=== PATIENT | female | born 1970 | race Caucasian/White ===

== ENCOUNTER 2019-12-14 11:00 | Outpatient (CLI) | payer OTHER, SELFPAY ==
--- NOTE | ~2019-12-14 | XR_ITS ---
EXAMINATION: XR mandible min 4V INDICATION: Left lower tooth infection and large abscess TECHNIQUE: Four views of the mandible are obtained on five radiographs COMPARISON: None available FINDINGS: There appear to be five or six remaining teeth of the mandible. All of the maxillary teeth are absent. There appears to be a dental caries involving the most posterior of the maxillary teeth o n the left. Fillings are seen within this tooth however finding detail is obscured. The facial soft t issues are grossly normal. No fracture is identified. The paranasal sinuses are clear. IMPRESSION: 1. Apparent dental caries involving a left mandibular tooth. Sensitivity of mandible radiographs is l ow. Would recommend Panorex or facial CT if indicated. Reviewed, dictated and finalized at location B. IMPRESSION: 1. Apparent dental caries involving a left mandibular tooth. Sensitivity of man dible radiographs is low. Would recommend Panorex or facial CT if indicated.
== END 2019-12-14 11:01 | disposition home or self-care (01) ==
PROVIDERS: PCP Family Medicine; Visit Provider Nurse Practitioner Family
DX: K04.7 Periapical abscess without sinus (principal)
CPT/HCPCS: 70110

== ENCOUNTER 2020-06-20 13:39 | Outpatient (CLI) | payer OTHER, SELFPAY ==
--- NOTE | ~2020-06-20 | XR_ITS ---
XR chest 2V DATE: 06/20/2020 14:02 INDICATION: Dyspnea TECHNIQUE: PA and lateral views COMPARISON: 01/23/2016 2 view chest FINDINGS: Normal heart size. No hilar or mediastinal enlargement. No pulmonary infiltrate or consolid ation, pleural effusion or pulmonary vascular congestion or pneumothorax. Included skeletal structures are unremarkable. IMPRESSION: No active cardiopulmonary disease Reviewed, dictated and finalized at location A. 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
== END 2020-06-20 13:40 | disposition home or self-care (01) ==
LOC: ANHIMG 13:50
PROVIDERS: PCP Family Medicine; Visit Provider Nurse Practitioner Family
DX: R06.00 Dyspnea, unspecified (principal)
CPT/HCPCS: 71046

== ENCOUNTER 2020-09-29 14:05 | Outpatient (CLI) | payer OTHER, SELFPAY ==
--- NOTE | ~2020-09-29 | XR_ITS ---
XR chest 2V DATE: 09/29/2020 14:25 INDICATION: Cough. Smoker. COPD. TECHNIQUE: PA and lateral views COMPARISON: None FINDINGS: Normal heart size. No hilar or mediastinal enlargement. No pulmonary infiltrate or consolid ation, pleural effusion or pulmonary vascular congestion or pneumothorax. IMPRESSION: No active cardiopulmonary disease Reviewed, dictated and finalized at location A.
== END 2020-09-29 14:06 | disposition home or self-care (01) ==
PROVIDERS: PCP Family Medicine; Visit Provider Nurse Practitioner Family
DX: R05 Cough (principal)
CPT/HCPCS: 71046

== ENCOUNTER → 2021-04-29 07:51 | Outpatient (CLI) | payer OTHER, SELFPAY ==
[2021-04-29 18:28] LABS: SARS-CoV-2 RNA PCR Negative
== END ==
PROVIDERS: PCP Family Medicine; Visit Provider Physician Assistant Medical
DX: R09.89 Other specified symptoms and signs involving the circulatory and respiratory systems (principal); Z20.822 Contact with and (suspected) exposure to COVID-19
CPT/HCPCS: C9803; U0003; U0005

== ENCOUNTER 2021-05-04 13:32 | Outpatient (CLI) | payer OTHER, SELFPAY ==
--- NOTE | ~2021-05-04 | XR_ITS ---
XR chest 2V DATE: 05/04/2021 14:03 INDICATION: Cough. Loss of voice. TECHNIQUE: PA and lateral views COMPARISON: 09/29/2020 2 view chest FINDINGS: Normal heart size. No hilar or mediastinal enlargement. No pulmonary infiltrate or consolid ation, pleural effusion or pulmonary vascular congestion or pneumothorax. IMPRESSION: No active cardiopulmonary disease Reviewed, dictated and finalized at location B. 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
== END 2021-05-04 13:33 | disposition home or self-care (01) ==
LOC: ANHIMG 13:36
PROVIDERS: PCP Family Medicine; Visit Provider Nurse Practitioner Family
DX: R05.9 Cough, unspecified (principal)
CPT/HCPCS: 71046

== ENCOUNTER 2021-05-25 15:00 | Outpatient (CLI) | payer OTHER, SELFPAY ==
--- NOTE | ~2021-05-25 | XR_ITS ---
EXAMINATION: XR chest 2V DATE: 05/25/2021 15:16 INDICATION: Cough. Acute upper respiratory infection, unspecified. TECHNIQUE: Frontal and lateral views of the chest were obtained. COMPARISON: Chest 2 views 05/04/2021 FINDINGS: The chest demonstrates clear lungs without pneumonia, pleural effusion, or pneumothorax. Th e heart size is normal. IMPRESSION: 1. No acute cardiopulmonary disease. Reviewed, dictated and finalized at location B. 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
== END 2021-05-25 15:01 | disposition home or self-care (01) ==
PROVIDERS: PCP Family Medicine; Visit Provider Physician Assistant Medical
DX: R05.9 Cough, unspecified (principal)
CPT/HCPCS: 71046

== ENCOUNTER 2021-08-06 08:44 | Outpatient (CLI) | payer OTHER, SELFPAY ==
--- NOTE | ~2021-08-06 | XR_ITS ---
EXAMINATION: XR chest 2V 08/06/2021 08:58 INDICATION: Chronic cough and sinus congestion PROCEDURE: 2 view chest COMPARISON: 06/20/2020 FINDINGS: The lungs are clear. The cardiomediastinal silhouette is within normal limits. There are no pleural effusions. There is no pneumothorax suspected. IMPRESSION: 1: NO ACUTE CARDIOPULMONARY DISEASE. Reviewed, dictated and finalized at location A.
== END 2021-08-06 08:45 | disposition home or self-care (01) ==
LOC: ANHIMG 08:47
PROVIDERS: PCP Family Medicine; Visit Provider Nurse Practitioner Family
DX: R05.9 Cough, unspecified (principal)
CPT/HCPCS: 71046

== ENCOUNTER 2022-02-12 00:53 | Day surgery (SDC) | payer OTHER, SELFPAY ==
[2022-02-08 09:08] VITALS: BMI 39.1
[2022-02-12 12:52] LABS: Glucose Point of Care 133 mg/dl (65-105)
[2022-02-12 12:55] VITALS: BP 150/85; PULSE 93; RESP 20; TEMP 36.4; O2SAT 97
--- NOTE | 2022-02-12 13:02 | WPDANESEPPF ---
Anes - Initial Pre Proc Eval Procedure: Operation Date: 02/12/22 14:15 Proposed Procedures p Colonoscopy - Kevin Manzano MD Date/Time: 02/12/22 13:02 Surgeon: Kevin Manzano MD Pre Op Diagnosis: diarrhea Patient Data Age: 51 Gender: F Height: 1.7 m Weight: 113.25 kg Allergies Allergy/AdvReac Type Severity Reaction Status Date / Time Penicillins Allergy Severe Swelling Verified 02/08/22 09:10 of Lip/Tongue/Throat tetracycline Allergy Intermediate Rash Verified 02/08/22 09:10 Home Medications Medication Instructions Recorded Confirmed Type albuterol sulfate 90 mcg/actuation 2 inhalation inhalation Q4H PRN 02/15/20 02/08/22 Rx aerosol inhaler shortness of breath or wheezing #6.7 grams benazepril 10 mg tablet 10 mg PO DAILY #90 tabs 07/19/21 02/08/22 Rx albuterol sulfate 1.25 mg/3 mL 1.25 mg (3 mL) inhalation Q4-6H 07/21/21 02/08/22 Rx solution for nebulization PRN bronchospasm #75 mL nebulizers (Altera Nebulizer #1 ea 07/21/21 02/02/22 Rx System) rosuvastatin 20 mg tablet (Crestor) 20 mg PO DAILY #30 tabs 08/23/21 02/08/22 Rx budesonide-formoterol HFA 160 See Rx Instructions .Route 11/29/21 02/08/22 Rx mcg-4.5 mcg/actuation aerosol .COMPLEX #10.2 grams inhaler (Symbicort) duloxetine 30 mg capsule,delayed 30 mg PO DAILY #90 caps 12/18/21 02/08/22 Rx release alprazolam 0.5 mg tablet (Xanax) 0.5 mg PO DAILY PRN anxiety #60 01/06/22 02/08/22 Rx tabs metformin 1,000 mg tablet 1,000 mg PO BID #60 tabs 01/16/22 02/08/22 Rx buspirone 10 mg tablet 10 mg PO BID #60 tabs 01/31/22 02/08/22 Rx loperamide 2 mg capsule 2 mg PO QID PRN Diarrhea 02/02/22 02/08/22 History eluxadoline 100 mg tablet (Viberzi) 100 mg PO BID #60 tabs 02/04/22 02/08/22 Rx Cranberry Plus Vitamin C 3 tab-cap PO 2XW 02/08/22 02/08/22 History loratadine 10 mg tablet (Claritin) 10 mg PO DAILY 02/08/22 02/08/22 History Laboratory Tests 02/12/22 12:49 POC Capillary Glucose 133 mg/dl H mg/dl (65-105) Patient hx anesthesia problems: none Family hx anesthesia problems: none Results Review: All pre-operative results and documents have been reviewed as part of the pre-operative evaluation. [facility] Past Medical History Medical History (Updated 02/10/22 @ 10:22 by SAMMY Wang) BMI 38.0-38.9,adult BMI 39.0-39.9,adult Flank pain Family History Family History Grandparent Hypertension Cerebrovascular accident Family history of coronary artery disease Mother Hypertension Family history of coronary artery disease COPD (chronic obstructive pulmonary disease) Father Acute myocardial infarction Sibling No problems noted. 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 Informed Consent: The patient's anesthetic plan and its attendant risks and benefits were d
[2022-02-12] MEDS: LACTATED RINGERS 1,000 ML 150 ML IV CONT (13:12)
--- NOTE | 2022-02-12 13:52 | PM.HPGS ---
History of Present Illness History of Present Illness Consent: Risks, benefits, and alternatives have been discussed and questions answered. Patient agrees to proceed with procedure. Chief complaint: diarrhea Narrative: Marissa Salcedo is a 51 year old female which controlled by great deal diarrhea. For the last couple of years, she has a bowel movement almost every time she eats. Her stools are always loose. There is no blood in her stools. For the past month or so she has also developed discomfort in the left side of her abdomen which is persistent. It does get worse after meal. Review of Systems Review of Systems: All systems reviewed & are unremarkable except as noted in HPI and below PMFSH Past Medical History Medical History BMI 38.0-38.9,adult BMI 39.0-39.9,adult Flank pain Family History Family History Grandparent Hypertension Cerebrovascular accident Family history of coronary artery disease Mother Hypertension Family history of coronary artery disease COPD (chronic obstructive pulmonary disease) Father Acute myocardial infarction Sibling No problems noted. 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[employer] Gender identity (if verbalized by the patient): Female Spiritual care concerns: No Meds Home Medications and Allergies Home Medications Medication Instructions Recorded Confirmed Type albuterol sulfate 90 mcg/actuation 2 inhalation inhalation Q4H PRN 02/15/20 02/12/22 Rx aerosol inhaler shortness of breath or wheezing #6.7 grams benazepril 10 mg tablet 10 mg PO DAILY #90 tabs 07/19/21 02/12/22 Rx albuterol sulfate 1.25 mg/3 mL 1.25 mg (3 mL) inhalation Q4-6H 07/21/21 02/12/22 Rx solution for nebulization PRN bronchospasm #75 mL nebulizers (Altera Nebulizer #1 ea 07/21/21 02/12/22 Rx System) rosuvastatin 20 mg tablet (Crestor) 20 mg PO DAILY #30 tabs 08/23/21 02/12/22 Rx budesonide-formoterol HFA 160 See Rx Instructions .Route 11/29/21 02/12/22 Rx mcg-4.5 mcg/actuation aerosol .COMPLEX #10.2 grams inhaler (Symbicort) duloxetine 30 mg capsule,delayed 30 mg PO DAILY #90 caps 12/18/21 02/12/22 Rx release alprazolam 0.5 mg tablet (Xanax) 0.5 mg PO DAILY PRN anxiety #60 01/06/22 02/12/22 Rx tabs metformin 1,000 mg tablet 1,000 mg PO BID #60 tabs 01/16/22 02/12/22 Rx buspirone 10 mg tablet 10 mg PO BID #60 tabs 01/31/22 02/12/22 Rx loperamide 2 mg capsule 2 mg PO QID PRN Diarrhea 02/02/22 02/12/22 History eluxadoline 100 mg tablet (Viberzi) 100 mg PO BID #60 tabs 02/04/22 02/12/22 Rx Cranberry Plus Vitamin C 3 tab-cap PO 2XW 02/08/22 02/12/22 History loratadine 10 mg tablet (Claritin) 10 mg PO DAILY 02/08/22 02/12/22 History Allergies Allergy/AdvReac Type Severity Reaction Status Date / Time Penicillins Allergy Severe Swelling Verified 02/12/22 13:14 of Lip/Tongue/Throat tetracycline Allergy Intermediate Rash Verified 02/12/22 13:14 Vital Signs Vital Signs - 24 hr 02/12/22 12:55 Temperature 36.4 C Pulse Rate 93 Respiratory Rate 20 Blood Pressure 150/85 H Pulse Oximetry 97 Oxygen Delivery Room Air Exam Const: General: alert Orientation/consciousness: patient oriented x3 Resp: Auscultation: clear to auscultation bilaterally Cardio: Rhythm: regular rhythm GI: GI Palp: Yes Soft to palpation and No Tenderness to palpation present (GI) Neuro: General:
[2022-02-12 14:37] VITALS: BP 159/98; PULSE 85; RESP 17; O2SAT 99
[2022-02-12 14:47] VITALS: BP 165/104; PULSE 82; RESP 18; O2SAT 99
[2022-02-12 14:57] VITALS: BP 165/109; PULSE 81; RESP 22; O2SAT 100
== END 2022-02-12 15:20 | disposition home or self-care (01) ==
PROVIDERS: PCP Family Medicine; Visit Provider Internal Medicine Gastroenterology
PROC: 0DJD8ZZ Inspection of Lower Intestinal Tract, Via Natural or Artificial Opening Endoscopic (ICD-10-PCS; CPT 45378; principal; 2022-02-12 14:15)
DX: K59.1 Functional diarrhea (principal); C18.3 Malignant neoplasm of hepatic flexure; D12.4 Benign neoplasm of descending colon; D12.5 Benign neoplasm of sigmoid colon; K57.30 Diverticulosis of large intestine without perforation or abscess without bleeding; F17.210 Nicotine dependence, cigarettes, uncomplicated; Z79.84 Long term (current) use of oral hypoglycemic drugs; Z79.51 Long term (current) use of inhaled steroids; E66.9 Obesity, unspecified; Z68.38 Body mass index [BMI] 38.0-38.9, adult
CPT/HCPCS: 45381; 45385; 45380; 82948; 88305; J7120

== ENCOUNTER 2022-02-14 14:14 | Emergency (ER) | payer OTHER, SELFPAY ==
--- NOTE | ~2022-02-14 | CT_ITS ---
EXAMINATION: CT abdomen pelvis w con DATE: 02/14/2022 15:21 INDICATION: AP s/p colonoscopy with biopsy TECHNIQUE: Computed tomography (CT) of the abdomen and pelvis was performed with 100 mL Omnipaque-350 intravenous contrast. Automated exposure control and iterative reconstruction technique were employe d. The dose-length product was 1436.55 mGy-cm. COMPARISON: None. FINDINGS: Lower thorax: Unremarkable Liver: Mild intrahepatic bile duct dilation. No obstructing mass or calcification. Biliary/Gallbladder: Cholelithiasis, without inflammatory change. No extrahepatic bile duct dilation. Pancreas: No mass or duct dilation. Spleen: Splenic cyst or hemangioma. Adrenals:No mass. Kidneys: 1.6 cm partially exophytic left midpole nodule with cystic and hyperdense components, may re present a cystic and solid nodule, hemorrhagic cyst with layering, are simple cyst adjacent to a oral d nodule or hemorrhagic cyst. GI tract: Mild fatty infiltration of the gastric antrum. Scattered mildly dilated loops of small yamileth l in the left upper abdomen, without transition point. 2 cm linear hyperdensity in the distal sigmoid , likely representing a surgical clip from reported biopsy. Normal appendix. Short segment pericoloni c inflammatory change in the mid transverse colon. Diverticulosis. Mesentery/Peritoneum: No ascites, mass, or free air. Retroperitoneum: No mass. Atherosclerotic abdominal aortic and/or arterial calcifications. Pelvis: Mild bladder wall thickening, remaining pelvic organs are within normal limits. Soft Tissues: Soft tissues and body wall unremarkable. Bones: No acute osseous finding. IMPRESSION: No free fluid or pneumoperitoneum. Short segment pericolonic inflammatory change in the mid transvers e colon, may reflect mild wall injury or diverticulitis. Indeterminate 1.6 cm left midpole renal nodu le, recommend outpatient MR of the kidneys for further evaluation. Mild small bowel ileus. Possible c ystitis. Presumed biopsy clip in the distal sigmoid colon. Reviewed, dictated and finalized at location K. IMPRESSION: No free fluid or pneumoperitoneum. Short segment pericolonic inflammatory delgadillo e in the mid transverse colon, may reflect mild wall injury or diverticulitis. Indeterminate 1.6 cm left midpole renal nodule, recommend outpatient MR of the kidneys for further evaluation. Mild small bowel ileus. Possible cystitis. Pres umed biopsy clip in the distal sigmoid colon.
[2022-02-14 14:19] VITALS: BP 141/92; PULSE 104; RESP 18; TEMP 37.1; O2SAT 100
[2022-02-14] MEDS: ONDANSETRON INJ 4 MG/2 ML VIAL IV PUSH (14:31)
[2022-02-14] MEDS: SODIUM CHLORIDE 0.9% IV 1,000 ML 999 ML IV CONT ×2 (14:31→15:21)
[2022-02-14] MEDS: MORPHINE SULFATE (*CRX) 4 MG/ML INJ IV PUSH (14:32)
[2022-02-14 14:50] LABS: Basophils Absolute Auto 0.1 K/mm3 (0.0-0.1); Basophils Percent Auto 0.9 % (0.2-1.2); Eosinophils Absolute Auto 0.4 K/mm3 (0-0.3); Hematocrit 43.9 % (37.0-47.0); Hemoglobin 14.6 g/dL (12.0-15.0); Immature Granulocyte Absolute 0.05 K/mm3 (0.00-0.031); Immature Granulocyte Percent A 0.4 % (0-0.5); Lymphocytes Absolute Auto 3.01 K/mm3 (0.9-3.2); Lymphocytes Percent Auto 21.7 % (18.3-44.2); Mean Corpuscular HGB Conc 33.3 g/dl (32-36); Mean Corpuscular Volume 87.1 fl (80-100); Mean Platelet Volume 8.8 fl (7.4-10.4); Monocytes Absolute Auto 0.8 K/mm3 (0.1-0.6); Monocytes Percent Auto 5.4 % (2.6-8.5); Neutrophils Absolute Auto 9.6 K/mm3 (1.3-6.7); Neutrophils Percent Auto 68.6 % (45.5-73.1); Platelet Count Result 304 k/mm3 (150-375); Red Blood Count 5.04 M/mm3 (4.2-5.4); Red Cell Distribution Width 15.6 % (11.5-14.5); White Blood Count 13.9 K/mm3 (4.5-10.0)
[2022-02-14 14:59] LABS: Prothrombin Time 13.1 Seconds (11.1-14.7)
[2022-02-14 15:03] LABS: Lactic Acid Reflex 3.1 mmol/L (0.7-2.0)
--- NOTE | 2022-02-14 15:04 | PC.NURSE ---
Pt taken to CT
[2022-02-14 15:07] LABS: Estimated CRCL calculation 98 ml/min; Estimated Glomerular Filt Rate > 60
[2022-02-14 15:21] LABS: Alanine Aminotransferase 23 U/L (6-35); Albumin Level 4.4 g/dL (3.5-5.1); Alkaline Phosphatase 72 U/L (38-126); Anion Gap 12 mmol/L (8-16); Aspartate Amino Transferase 22 U/L (14-36); Bilirubin,Total 0.2 mg/dL (0.2-1.3); Blood Urea Nitrogen 8 mg/dL (7-17); Calcium 9.3 mg/dL (8.4-10.2); Carbon Dioxide 20 mmol/L (22-30); Chloride 105 mmol/L (98-107); Estimated CRCL calculation 98 ml/min; Estimated Glomerular Filt Rate > 60; Glucose 158 mg/dL (65-110); Lipase 148 U/L (23-300); Potassium 3.4 mmol/L (3.4-5.0); Sodium 137 mmol/L (137-145)
[2022-02-14 15:23] VITALS: BP 123/73; PULSE 91; RESP 19; O2SAT 98
--- NOTE | 2022-02-14 16:24 | PC.NURSE ---
test was negative
[2022-02-14 16:27] VITALS: BP 123/83; PULSE 87; RESP 18; O2SAT 100
[2022-02-14 16:33] LABS: Appearance Urine Clear (Clear); Bilirubin Urine Negative (Negative); Blood Urine Negative (Negative); Color Urine Yellow (Yellow); Glucose Urine UA Negative (Negative); Ketones Urine Negative (Negative); Leukocyte Esterase Ur Negative LEU/UL (Negative); Nitrate Urine Negative (Negative); Protein Urine Negative (Negative); Specific Grav Ur <= 1.005 (1.001-1.035); Urobilinogen Urine 0.2 mg/dL (<2.0)
[2022-02-14 16:36] LABS: Add Urine Microscopic? NO
[2022-02-14 17:44] LABS: Reflex Lactic Acid Yes or No Add Lactic
[2022-02-14] MEDS: CIPROFLOXACIN 500 MG TAB PO (17:46)
[2022-02-14] MEDS: metroNIDAZOLE 250 MG TABLET 500 MG PO (17:47)
[2022-02-14 17:48] VITALS: BP 134/84; PULSE 92; RESP 18; O2SAT 100
--- NOTE | 2022-02-14 17:50 | ED.GENADULT ---
HPI - General Adult General Chief complaint: Abdominal Pain Stated complaint: abd pain Time Seen by Provider: 02/14/22 14:16 History of Present Illness HPI narrative: Patient is a 51-year-old female who presents ER with abdominal pain. Ongoing for 2 days. Patient underwent colonoscopy with polypectomy and discovery of obstructing mass. She had this performed due to diarrhea. She started having pain after the colonoscopy. She called her GI doctor today who recommended she come to the ER for evaluation. No fevers or chills or sweats. No loss of consciousness. No increased diarrhea. Pain is benign on the left side. No blood in the stool Related Data Home Medications Medication Instructions Recorded Confirmed loperamide 2 mg capsule 2 mg PO QID PRN Diarrhea 02/02/22 02/12/22 Cranberry Plus Vitamin C 3 tab-cap PO 2XW 02/08/22 02/12/22 loratadine 10 mg tablet (Claritin) 10 mg PO DAILY 02/08/22 02/12/22 Allergies Allergy/AdvReac Type Severity Reaction Status Date / Time Penicillins Allergy Severe Swelling Verified 02/12/22 13:14 of Lip/Tongue/Throat tetracycline Allergy Intermediate Rash Verified 02/12/22 13:14 Review of Systems Review of Systems: All systems reviewed & are unremarkable except as noted in HPI and below Constitutional: Constitutional: Denies chills, Denies fatigue and Denies fever(s) ENT: Denies nasal congestion and Denies sore throat Cardiovascular: Cardiovascular: Denies chest pain and Denies rapid heart rate Respiratory: Respiratory: Denies cough and Denies dyspnea Gastrointestinal: Gastrointestinal: Reports abdominal pain, Denies constipation, Denies diarrhea, Denies nausea and Denies vomiting Genitourinary: Genitourinary: Denies nocturia and Denies dysuria [facility] Past Medical History Medical History (Updated 02/14/22 @ 17:59 by Ponce Miranda MD) Anxiety disorder, unspecified Flank pain Hyperlipidemia Hypertension Major depressive disorder, single episode, unspecified Reflux esophagitis Uncontrolled type 2 diabetes mellitus without complication Surgical History Surgical History (Updated 02/14/22 @ 17:59 by Ponce Miranda MD) History of colonoscopy Family History Family History Grandparent Hypertension Cerebrovascular accident Family history of coronary artery disease Mother Hypertension Family history of coronary artery disease COPD (chronic obstructive pulmonary disease) Father Acute myocardial infarction Sibling No problems noted. 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 HEAD: Normocephalic, atraumatic. ENT: Mucous membranes moist. CHEST: Clear to auscultation. No respiratory distress. HEART: Regular rate and rhythm. Normal peripheral pulses. ABDOMEN: Soft, tender palpation in the epigastrium and left upper and lower quadrants with guarding nondistended, normal active bowel sounds. EXTREMITIES: Normal range of motion. No edema. SKIN: Warm, dry, no rash. NEURO: Alert and oriented x3. PSYCH: Normal mood and affect. Course Course Emergency Course: Patient informed of results. Discussed treatment plan. Lactate normalized with fluids. Will treat with oral antibiotics and pain control outpatient. Patient agreeable with plan. Will discharge. Vital Signs Vital signs: Michelle
[2022-02-14 18:10] VITALS: BP 124/68; PULSE 72; RESP 18; O2SAT 100
== END 2022-02-14 18:12 | disposition home or self-care (01) ==
PROVIDERS: Emergency Provider Emergency Medicine; PCP Family Medicine
DX: K57.32 Diverticulitis of large intestine without perforation or abscess without bleeding (principal); I10 Essential (primary) hypertension; E78.5 Hyperlipidemia, unspecified; E11.9 Type 2 diabetes mellitus without complications; K21.9 Gastro-esophageal reflux disease without esophagitis; F32.A Depression, unspecified; F41.9 Anxiety disorder, unspecified; F17.210 Nicotine dependence, cigarettes, uncomplicated; Z79.51 Long term (current) use of inhaled steroids; Z79.84 Long term (current) use of oral hypoglycemic drugs
CPT/HCPCS: 36415; 74177; 80053; 81003; 83605; 83690; 85025; 85610; 85730; 96361; 96374; 96375; 99284; A9270; J2270; J2405; J7030; Q9967

== ENCOUNTER 2022-02-18 13:04 | Outpatient (CLI) | payer OTHER, SELFPAY ==
[2022-02-18 14:09] LABS: T4 Thyroxine 9.57 ug/dL (5.53-11.0)
== END 2022-02-18 13:05 | disposition home or self-care (01) ==
LOC: ANHLAB 13:06
PROVIDERS: PCP Family Medicine; Visit Provider Nurse Practitioner Family
DX: R79.89 Other specified abnormal findings of blood chemistry (principal)
CPT/HCPCS: 36415; 84436; 84443

== ENCOUNTER 2022-03-09 06:36 | Outpatient (CLI) | payer OTHER, SELFPAY ==
--- NOTE | ~2022-03-09 | MR_ITS ---
EXAMINATION: MR renal wo/w con DATE: 03/09/2022 07:57 INDICATION: Colon cancer and mass at the left kidney. TECHNIQUE: Magnetic resonance imaging (MRI) of the abdomen was performed without and with 20 mL Multi layo intravenous contrast. Sequences included coronal T2-weighted SS-FSE, coronal and axial FS 2D-F IESTA, axial STIR FSE, axial T2-weighted SS-FSE, axial T2-weighted FS SS-FSE, axial diffusion-weighte d SE, axial dual-echo T1-weighted FSPGR, and axial and coronal T1-weighted LAVA. Postcontrast axial T 1-weighted LAVA images were obtained in a time course. Postcontrast coronal T1-weighted LAVA images w ere obtained. COMPARISON: CT abdomen and pelvis dated 02/14/2022 FINDINGS: Heart size is normal. No pericardial or pleural effusion. Low T2 and increased T1 intensity gallstone s within the decompressed gallbladder. Spleen, pancreas, bilateral adrenal glands and right kidney ar e normal. 1.4 cm exophytic Bosniak 4 lesion at the posterior interpolar region of the left kidney wit h both a cystic and 10 x 7 mm solid enhancing component demonstrates slightly higher T2 and lower T1 signal than the adjacent renal cortex. 6 cm long segment of enhancing wall thickening at the proximal transverse colon which likely represents the site of a reported colon cancer. There is mild strandin g along with a few mildly prominent but still subcentimeter lymph nodes in the immediately adjacent m esentery which raises concern for local metastatic disease. Normal appendix. No bowel obstruction. No pathologically enlarged abdominal lymphadenopathy. Mild lumbar levocurvature with moderate lower lum bar spondylosis. Normal bone marrow signal throughout. IMPRESSION: 1. 6 cm segment of enhancing wall thickening at the proximal transverse colon likely representing the site of a reported colon cancer identified on colonoscopy. There is some stranding and a few mildly prominent lymph nodes in the immediately adjacent small bowel mesentery which raises concern for loca l metastatic disease. 2. 1.4 cm Bosniak 4 complex cystic lesion at the mid left kidney which could represent either metasta tic disease or primary renal cell carcinoma. 3. Cholelithiasis. Reviewed, dictated and finalized at location A. IMPRESSION: 1. 6 cm segment of enhancing wall thickening at the proximal transverse colon l ikely representing the site of a reported colon cancer identified on colonoscop y. There is some stranding and a few mildly prominent lymph nodes in the immedi ately adjacent small bowel mesentery which raises concern for local metastatic disease. 2. 1.4 cm Bosniak 4 complex cystic lesion at the mid left kidney which could re present either metastatic disease or primary renal cell carcinoma. 3. Cholelithiasis.
== END 2022-03-09 06:37 | disposition home or self-care (01) ==
PROVIDERS: PCP Family Medicine; Visit Provider Physician Assistant Medical
DX: K63.89 Other specified diseases of intestine (principal); N28.89 Other specified disorders of kidney and ureter; R93.3 Abnormal findings on diagnostic imaging of other parts of digestive tract; N28.1 Cyst of kidney, acquired; K80.20 Calculus of gallbladder without cholecystitis without obstruction
CPT/HCPCS: 74183; A9577

== ENCOUNTER 2022-03-17 08:28 | Outpatient (CLI) | payer OTHER, SELFPAY ==
--- NOTE | ~2022-03-17 | CT_ITS ---
EXAMINATION:CT diagnostic chest w con DATE: 03/17/2022 08:54 INDICATION: Malignant neoplasm of the hepatic flexure of the colon. TECHNIQUE: Computed tomography (CT) of the chest was performed with 75 mL Omnipaque 350 intravenous c ontrast. Automated exposure control and iterative reconstruction technique were employed. The dose-le ngth product (DLP) was 558.06 mGy-cm. COMPARISON: CT abdomen and pelvis 02/14/2022 FINDINGS: Calcified pulmonary nodules are consistent with old granulomatous disease. There are multip le nodules in the lungs measuring up to 3 mm. There is a 6 mm nodule at left major fissure. There is a 4 mm nodule at left major fissure. No pleural effusion. The heart size is normal. No pericardial ef fusion. There are gallstones in the gallbladder, which is normal in size. There is mild thoracic spon dylosis. IMPRESSION: 1. Small pulmonary nodules, likely benign. Reviewed, dictated and finalized at location A.
== END 2022-03-17 08:29 | disposition home or self-care (01) ==
PROVIDERS: PCP Family Medicine
DX: C18.3 Malignant neoplasm of hepatic flexure (principal); R91.8 Other nonspecific abnormal finding of lung field
CPT/HCPCS: 71260; Q9967

== ENCOUNTER 2022-03-24 11:15 | Outpatient (CLI) | payer OTHER, SELFPAY ==
--- NOTE | ~2022-03-24 | XR_ITS ---
EXAMINATION: XR knee RT min 4V DATE: 03/24/2022 11:51 INDICATION: Right knee pain TECHNIQUE: Four views of the right knee were obtained. COMPARISON: None. FINDINGS: Alignment is normal. No fracture or osteochondral lesion. There is mild tricompartmental os teoarthritis characterized by tiny marginal osteophytes. No joint effusion/synovitis. Soft tissues a re unremarkable. IMPRESSION: 1. No acute osseous abnormality. Reviewed, dictated and finalized at location B. 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
== END 2022-03-24 11:16 | disposition home or self-care (01) ==
LOC: ANHIMG 11:18
PROVIDERS: PCP Family Medicine; Visit Provider Family Medicine
DX: M25.561 Pain in right knee (principal)
CPT/HCPCS: 73564

== ENCOUNTER 2022-05-04 16:07 | Outpatient (CLI) | payer OTHER, SELFPAY ==
[2022-05-04 16:27] LABS: Basophils Absolute Auto 0.1 K/mm3 (0.0-0.1); Basophils Percent Auto 1.4 % (0.2-1.2); Eosinophils Absolute Auto 0.3 K/mm3 (0-0.3); Eosinophils Percent Auto 3.5 % (0-4.4); Hematocrit 38.2 % (37.0-47.0); Hemoglobin 12.6 g/dL (12.0-15.0); Immature Granulocyte Absolute 0.04 K/mm3 (0.00-0.031); Immature Granulocyte Percent A 0.4 % (0-0.5); Lymphocytes Absolute Auto 2.66 K/mm3 (0.9-3.2); Lymphocytes Percent Auto 29.1 % (18.3-44.2); Mean Corpuscular Hemoglobin 28.5 pg (26-34); Mean Corpuscular Volume 86.4 fl (80-100); Mean Platelet Volume 9.1 fl (7.4-10.4); Monocytes Absolute Auto 0.5 K/mm3 (0.1-0.6); Monocytes Percent Auto 5.6 % (2.6-8.5); Neutrophils Absolute Auto 5.5 K/mm3 (1.3-6.7); Platelet Count Result 277 k/mm3 (150-375); Red Blood Count 4.42 M/mm3 (4.2-5.4); White Blood Count 9.1 K/mm3 (4.5-10.0)
[2022-05-04 16:39] LABS: Alanine Aminotransferase 19 U/L (6-35); Albumin Level 4.2 g/dL (3.5-5.1); Alkaline Phosphatase 59 U/L (38-126); Anion Gap 6 mmol/L (8-16); Aspartate Amino Transferase 21 U/L (14-36); Bilirubin,Total 0.1 mg/dL (0.2-1.3); Blood Urea Nitrogen 7 mg/dL (7-17); Calcium 8.6 mg/dL (8.4-10.2); Carbon Dioxide 28 mmol/L (22-30); Chloride 104 mmol/L (98-107); Estimated Glomerular Filt Rate > 60; Glucose 91 mg/dL (65-110); Potassium 3.5 mmol/L (3.4-5.0); Sodium 138 mmol/L (137-145)
[2022-05-04 16:47] LABS: Erythrocyte Sedimentation Rate 15 mm/hr (0-20)
[2022-05-07 09:16] LABS: CRP, High Sensitivity 1.5 mg/L (***)
== END 2022-05-04 16:08 | disposition home or self-care (01) ==
LOC: ANHLAB 16:07
PROVIDERS: PCP Family Medicine; Visit Provider Family Medicine
DX: R10.84 Generalized abdominal pain (principal)
CPT/HCPCS: 36415; 80053; 85025; 85652; 86141

== ENCOUNTER 2022-06-10 13:43 | Outpatient (CLI) | payer OTHER, SELFPAY ==
--- NOTE | ~2022-06-10 | US_ITS ---
EXAMINATION: US soft tissue head and neck DATE: 06/10/2022 14:33 INDICATION: Right neck swelling. TECHNIQUE: Multiple grayscale and Doppler ultrasound images of the neck were obtained. COMPARISON: None FINDINGS: There are normal lymph nodes in the neck bilaterally. IMPRESSION: 1. No abnormal neck mass or lymphadenopathy. Reviewed, dictated and finalized at location A. 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
== END 2022-06-10 13:44 | disposition home or self-care (01) ==
PROVIDERS: PCP Family Medicine; Visit Provider Nurse Practitioner Family
DX: R22.1 Localized swelling, mass and lump, neck (principal)
CPT/HCPCS: 76536

== ENCOUNTER 2024-03-01 10:40 | Emergency (ER) | payer OTHER, SELFPAY ==
[2024-03-01 10:53] VITALS: BP 118/78; RESP 18; TEMP 36.3; O2SAT 97
--- NOTE | 2024-03-01 11:00 | ED.URI ---
HPI - URI/Sore Throat General Chief Complaint: Upper Respiratory Infection Stated Complaint: Ear Pain/Congestion/Cough/Sore Throat Time Seen by Provider: 03/01/24 11:01 Source: patient, RN notes reviewed and old records reviewed Mode of arrival: ambulatory Limitations: no limitations History of Present Illness HPI Narrative: 53-year-old female to [facility] with complaint bilateral ear pain, congestion, cough, sore throat for 1 month. Patient states she has attempted to treat at home with various [id number] medications with little relief. 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 Patient denies shortness of breath, chest pain, difficulty swallowing. Patient reports 2 pack per day history. Patient resting uncomfortably in exam room in no acute distress. Respirations even and nonlabored. Patient able to speak in complete sentences without difficulty. Related Data Allergies Allergy/AdvReac Type Severity Reaction Status Date / Time Penicillins Allergy Severe Swelling Verified 03/01/24 10:52 of Lip/Tongue/Throat tetracycline Allergy Intermediate Rash Verified 03/01/24 10:52 Review of Systems Review of Systems: All systems reviewed & are unremarkable except as noted in HPI and below Constitutional: Constitutional: Reports no additional constitutional complaints Eyes: Eyes: Reports no additional eye complaints ENT: Reports as per HPI, Reports otalgia, Reports nasal congestion, Reports sinus pressure and Reports sore throat Cardiovascular: Cardiovascular: Reports no additional cardiovascular complaints, Denies chest pain and Denies dyspnea Respiratory: Respiratory: Reports no additional respiratory complaints, Reports cough and Denies dyspnea Musculoskeletal: Musculoskeletal: Reports no additional musculoskeletal complaints Neurologic: Reports system reviewed and no additional complaints, except as documented Psychiatric: Psychiatric: Reports no additional psychiatric complaints [facility] Past Medical History Medical History Abdominal pain Anxiety disorder, unspecified BMI 32.0-32.9,adult BMI 33.0-33.9,adult Cholecystectomy planned Cholecystitis Dental abscess Diarrhea Flank pain Hyperlipidemia Hypertension Influenza A Insomnia Major depressive disorder, single episode, unspecified Otitis externa Painful paresthesia Reflux esophagitis Right knee pain Uncontrolled type 2 diabetes mellitus without complication Surgical History Surgical History History of colon resection History of colonoscopy Family History Family History Grandparent Hypertension Cerebrovascular accident Family history of coronary artery disease Mother Hypertension Family history of coronary artery disease COPD (chronic obstructive pulmonary disease) Heart disease Father Acute myocardial infarction Heart disease Sibling Carcinoma of colon Half brother Sibling No problems noted. Social History Social History Smoking packs per day: 0.5 Smoking cigarettes per day: 10.0 Years smoked: 36 Smoking pack-years: 18.00 Smoking status: Current some day smoker Tobacco type: cigarettes Second hand tobacco smoke exposure: Yes Alcohol intake: never Substance use: never Substance use type: does not use Lack of Transportation: No Lack of Food: Never True Current Housing: I Have Housing Concerned About Future Housing: No Difficulty Paying Gas/Electric Bills: No Difficulty Paying for Meds: No Currently Unemployed: No Education: Grade School Difficulty w/ Childcare or Family Care: No Living arrangemen
== END 2024-03-01 11:44 | disposition home or self-care (01) ==
PROVIDERS: Emergency Provider Nurse Practitioner Family; PCP Family Medicine
DX: H66.93 Otitis media, unspecified, bilateral (principal); J32.9 Chronic sinusitis, unspecified; F17.210 Nicotine dependence, cigarettes, uncomplicated; E78.5 Hyperlipidemia, unspecified; I10 Essential (primary) hypertension; E11.9 Type 2 diabetes mellitus without complications; Z79.84 Long term (current) use of oral hypoglycemic drugs; F41.9 Anxiety disorder, unspecified; F32.9 Major depressive disorder, single episode, unspecified
CPT/HCPCS: 99213; G0463

== ENCOUNTER 2024-04-25 13:36 | Emergency (ER) | payer OTHER, SELFPAY ==
[2024-04-25 13:42] VITALS: BP 129/73; PULSE 83; RESP 16; TEMP 36.3; O2SAT 99
--- NOTE | 2024-04-25 14:22 | ED_ITS ---
HPI - URI/Sore Throat General Chief Complaint: Upper Respiratory Infection Stated Complaint: Ear Pain/Congestion Source: patient Mode of arrival: ambulatory Limitations: no limitations History of Present Illness HPI Narrative: 53-year-old female presented for complaint of nasal congestion and cough for over 1 week. Reports right ear pain for 3 days. taking Mucinex for symptoms. States she gets a lot of ear infections. Denies tinnitus, dizziness, ear drainage, nausea, vomiting, fevers or chills. Smokes 2 PPD. Related Data Home Medications ?Medication ?Instructions ?Recorded ?Confirmed ?Last Taken ?Type diphenoxylate-atropine 2.5 2 tablet PO DAILY PRN diarrhea 04/25/24 04/25/24 Unknown History mg-0.025 mg tablet Allergies Allergy/AdvReac Type Severity Reaction Status Date / Time Penicillins Allergy Severe Swelling Verified 04/25/24 13:40 of Lip/Tongue/Throat tetracycline Allergy Intermediate Rash Verified 04/25/24 13:40 Review of Systems Review of Systems: CONSTITUTIONAL: Denies malaise, chills, or fever. EYES: Denies visual changes, redness, or discharge. ENT: Denies sore throat. Reports ear pain, rhinorrhea, congestion, sinus pain CARDIOVASCULAR: Denies chest pain, palpitations, or edema. RESPIRATORY: Denies cough or dyspnea. GASTROINTESTINAL: Denies abdominal pain, nausea, vomiting, diarrhea SKIN: Denies rash or itching. MUSCULOSKELETAL: Denies myalgia. NEUROLOGIC: Denies headache. All systems reviewed & are unremarkable except as noted in HPI and below PMFSH Past Medical History Medical History BMI 33.0-33.9,adult BMI 32.0-32.9,adult Cholecystectomy planned Influenza A Right knee pain Abdominal pain Cholecystitis Insomnia Diarrhea Painful paresthesia Otitis externa Hyperlipidemia Hypertension Flank pain Dental abscess Anxiety disorder, unspecified Major depressive disorder, single episode, unspecified Reflux esophagitis Uncontrolled type 2 diabetes mellitus without complication Surgical History Surgical History History of colon resection History of colonoscopy Family History Family History Grandparent Hypertension Cerebrovascular accident Family history of coronary artery disease Mother Hypertension Family history of coronary artery disease COPD (chronic obstructive pulmonary disease) Heart disease Father Acute myocardial infarction Heart disease Sibling Carcinoma of colon Half brother Sibling No problems noted. Social History Social History (Updated 04/25/24 @ 14:34 by Erika Hugo, [facility]) Smoking packs per day: 1.5 Smoking cigarettes per day: 30.0 Years smoked: 36 Smoking pack-years: 54.00 Smoking status: Current some day smoker Tobacco type: cigarettes Second hand tobacco smoke exposure: Yes Alcohol intake: never Substance use: never Substance use type: does not use Lack of Transportation: No Lack of Food: Never True Current Housing: I Have Housing Concerned About Future Housing: No Difficulty Paying Gas/Electric Bills: No Difficulty Paying for Meds: No Currently Unemployed: No Education: Grade School Difficulty w/ Childcare or Family Care: No Living arrangements: with family Occupation/Education: occupation 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 There is no relevant family history pertinent to the presenting complaint Exam Narrative: GENERAL: Well-appearing EYES: PERRLA, conjunctivae clear ENT: Nares clear. Mucous membranes moist. Nasal congestion noted. Left TM pearly hernadez with dull light reflex; Right TM erythematous, bulging and intact; canal not erythematous, no drainage no tragal tenderness. Oropharynx not erythematous without lesions. Tonsils not enlarged and without exudate, no drooling, no hoarseness, no trismus, uvula midline. NECK: Supple. No lymphadenopathy CHEST: Clear to auscultation, breath sounds equal. HEART: Regular rate and rhythm. No murmur heard. SKIN: Warm, dry, no rash. NEURO: Alert and oriented x3. PSYCH: Normal mood and affect Course Course Emergency Course: Patient is aware of diagnosis, understands and agrees to treatment plan. Anticipatory guidance given. Patient agrees to follow-up as directed and is aware of reasons to seek care at the emergency department. Portions of this record may have been created with voice recognition software Level of Care: Express Care Visit Vital Signs Vital signs: Vital Signs Temperature 97.4 F L 04/25/24 13:42 Pulse Rate 83 04/25/24 13:42 Respiratory Rate 16 04/25/24 13:42 Blood Pressure 129/73 04/25/24 13:42 Pulse Oximetry 99 04/25/24 13:42 Oxygen Delivery Room Air 04/25/24 13:42 Temperature 97.4 F L 04/25/24 13:42 Pulse Rate 83 04/25/24 13:42 Respiratory Rate 16 04/25/24 13:42 Blood Pressure 129/73 04/25/24 13:42 Pulse Oximetry 99 04/25/24 13:42 Oxygen Delivery Room Air 04/25/24 13:42 Reviewed MDM - URI/Sore Throat MDM Narrative Medical decision making narrative: Discussed physical exam findings. Advised supportive measures and signs/symptoms to go to the ER. Pt is appropriate for outpt treatment and f/u. Differential Diagnosis Differential diagnosis: Likely upper respiratory infection, otitis media, sinusitis, viral infection and pharyngitis Discharge Plan Discharge Clinical Impression: Otitis media Patient Disposition: Home, Self-Care Condition: Stable Instructions: Antibiotic Form, Ear Infection (ED) Additional Instructions: Take antibiotics as directed. Recommend antihistamine such as Benadryl, Zyrtec or Pavithra for sinus congestion Flonase nasal spray, 1 spray in each nostril once daily until symptoms improve Symptomatic treatment includes: rest, fluids, and increase humidity of the air at home. Tylenol 1000mg every 8 hours as needed to reduce fever, pain Please schedule a follow-up visit with your personal physician within 3-5days. If your symptoms persist, change or worsen significantly, go to the emergency department for further evaluation. Patient Language: Bengali Prescriptions: New levofloxacin 750 mg tablet 750 mg PO DAILY Qty: 7 0RF No Action diphenoxylate-atropine 2.5-0.025 mg tablet 2 tablet PO DAILY PRN (Reason: diarrhea) benazepril 10 mg tablet See Rx Instructions .ROUTE .COMPLEX Qty: 90 1RF Dose Instruction: TAKE 1 TABLET BY MOUTH DAILY Rx Instructions: TAKE 1 TABLET BY MOUTH DAILY buspirone 10 mg tablet 10 mg PO BID Qty: 180 3RF rosuvastatin [Crestor] 20 mg tablet 20 mg PO DAILY Qty: 90 3RF trazodone 50 mg tablet See Rx Instructions PO QHS Qty: 180 2RF Rx Instructions: 1-2 orally every day at bedtime; metformin 1,000 mg tablet 1,000 mg PO BID Qty: 180 1RF alprazolam [Xanax] 0.5 mg tablet 0.5 mg PO DAILY PRN (Reason: anxiety) Qty: 60 0RF bupropion HCl 150 mg tablet extended release 24 hr 150 mg PO QAM Qty: 90 0RF Breztri Aerosphere 160-9-4.8 mcg/actuation HFA aerosol inhaler 2 inh inhalation BID Qty: 10.7 0RF Follow-up/Referrals: Booker Brown MD [Primary Care Provider] - Stand Alone Forms: Work/School Release IP Time of Disposition: 14:31
== END 2024-04-25 14:32 | disposition home or self-care (01) ==
PROVIDERS: Emergency Provider Nurse Practitioner Family; PCP Family Medicine
DX: H66.91 Otitis media, unspecified, right ear (principal); I10 Essential (primary) hypertension; E78.5 Hyperlipidemia, unspecified; E11.9 Type 2 diabetes mellitus without complications; F17.210 Nicotine dependence, cigarettes, uncomplicated
CPT/HCPCS: 99213; G0463

== ENCOUNTER 2024-06-13 11:06 | Emergency (ER) | payer OTHER, SELFPAY ==
[2024-06-13 11:10] VITALS: BP 140/74; PULSE 104; RESP 18; TEMP 36.8; O2SAT 97
--- NOTE | 2024-06-13 12:24 | ED.URI ---
HPI - URI/Sore Throat General Chief Complaint: Upper Respiratory Infection Stated Complaint: head & chest congestion/ears/throat Time Seen by Provider: 06/13/24 12:10 Source: patient, RN notes reviewed and old records reviewed Mode of arrival: ambulatory Limitations: no limitations History of Present Illness HPI Narrative: 54 year old female presents to [facility] care with complaints of head and chest congestion for the past 5 days with ear pain and sore throat with acute cough. Patient reports history of COPD and uses inhalers and breathing treatments and she continues to smoke average of 2 ppd of cigarettes. Patient states that she has been taking Mucinex, Theraflu and Ibuprofen for her symptoms with no improvement.Patient reports that she has had fevers and chills and sweats also. 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 MD elicited complaint: fever, cough, rhinorrhea, nasal congestion and other (ear pain) Pertinent past history: COPD Onset (ago): day(s) (5) Severity: moderate Able to tolerate fluids by mouth: Yes Treatments prior to arrival: ibuprofen and other (Mucinex and thera flu) Related Data Home Medications ?Medication ?Instructions ?Recorded ?Confirmed ?Last Taken ?Type albuterol sulfate 90 mcg/actuation inhalation 06/13/24 Unknown History aerosol inhaler Allergies Allergy/AdvReac Type Severity Reaction Status Date / Time Penicillins Allergy Severe Swelling Verified 05/18/24 07:35 of Lip/Tongue/Throat tetracycline Allergy Intermediate Rash Verified 05/18/24 07:35 Review of Systems Review of Systems: CONSTITUTIONAL: reports malaise, chills, sweats, or fever. EYES: Denies visual changes, redness, or discharge. ENT: Reports rhinorrhea, congestion, sinus pain, otalgia and sore throat. CARDIOVASCULAR: Denies chest pain, palpitations, or edema. RESPIRATORY: Reports cough.? Reports dyspnea. GASTROINTESTINAL: Denies abdominal pain, nausea, vomiting, diarrhea SKIN: Denies rash or itching. MUSCULOSKELETAL: Denies myalgia. NEUROLOGIC: reports headache. All systems reviewed & are unremarkable except as noted in HPI and below PMFSH Past Medical History Medical History BMI 33.0-33.9,adult BMI 32.0-32.9,adult Cholecystectomy planned Influenza A Right knee pain Abdominal pain Cholecystitis Insomnia Diarrhea Painful paresthesia Otitis externa Hyperlipidemia Hypertension Flank pain Dental abscess Anxiety disorder, unspecified Major depressive disorder, single episode, unspecified Reflux esophagitis Uncontrolled type 2 diabetes mellitus without complication Surgical History Surgical History History of colon resection History of colonoscopy Family History Family History Grandparent Hypertension Cerebrovascular accident Family history of coronary artery disease Mother Hypertension Family history of coronary artery disease COPD (chronic obstructive pulmonary disease) Heart disease Father Acute myocardial infarction Heart disease Sibling Carcinoma of colon Half brother Sibling No problems noted. Social History Social History (Updated 06/14/24 @ 12:14 by Charlee King NP) Smoking packs per day: 1.5 Smoking cigarettes per day: 30.0 Years smoked: 36 Smoking pack-years: 54.00 Smoking status: Current every day smoker Tobacco type: cigarettes Second hand tobacco smoke exposure: Yes Alcohol intake: never Substance use: never Substance use type: does not use Lack of Transportation: No Lack of Food: Never True Current Housing: I Have Housing Concerned About Future Housing: No Difficulty Paying Gas/Electric Bills: No Difficulty Paying for Meds: No Currently Unemployed: No Education: Grade School Difficulty w/ Childcare or Family Care: No Living arrangements: with family Occupation/Education: occupation 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 There is no relevant family history pertinent to the presenting complaint Exam Narrative: GENERAL: Well-appearing, well-nourished, and in no acute distress. HEAD: Normocephalic EYES: PERRLA, conjunctivae clear ENT: Nares clear, turbinates edematous and erythematous, clear discharge, sinus pressure,headache Mucous membranes moist. TM pearly hernadez with dull light reflex bilaterally; no tragal tenderness. Oropharynx erythematous without lesions. Tonsils not enlarged and without exudate, no drooling, no hoarseness, no trismus, uvula midline. NECK: Supple. No lymphadenopathy CHEST: Scattered wheezing on auscultation, breath sounds equal. positive wheezing,no rhonchi, rales, or stridor. No acute respiratory distress, speaks in full sentences.loose cough SAO2 97% on room air HEART: Regular rate and rhythm. No murmur heard. SKIN: Warm, dry, no rash. NEURO: Alert and oriented x3. PSYCH: Normal mood and affect Course Course Emergency Course: Patient is aware of diagnosis, understands and agrees to treatment plan.? Anticipatory guidance given.? Patient agrees to follow-up as directed and is aware of reasons to seek care at the emergency department. Portions of this record may have been created with voice recognition software Level of Care: Express Care Visit Vital Signs Vital signs: Vital Signs Temperature 36.8 C 06/13/24 11:10 Pulse Rate 104 H 06/13/24 11:10 Respiratory Rate 18 06/13/24 11:10 Blood Pressure 140/74 06/13/24 11:10 Pulse Oximetry 97 06/13/24 11:10 Oxygen Delivery Room Air 06/13/24 11:10 Temperature 36.8 C 06/13/24 11:10 Pulse Rate 104 H 06/13/24 11:10 Respiratory Rate 18 06/13/24 11:10 Blood Pressure 140/74 06/13/24 11:10 Pulse Oximetry 97 06/13/24 11:10 Oxygen Delivery Room Air 06/13/24 11:10 Reviewed MDM - URI/Sore Throat MDM Narrative Medical decision making narrative: Differential diagnosis considered: Ortiz virus, strep pharyngitis, allergic rhinitis, upper respiratory tract infection, sinusitis, rhinosinusitis, nasopharyngitis. viral pharyngitis, otitis media, otitis externa, pneumonia, bronchitis, viral cough syndrome, viral syndrome, and influenza.? Exam findings show no acute concerns or changes; patient is non-toxic appearing and is in no distress.? Patient is appropriate for outpatient treatment and follow-up. Differential Diagnosis Differential diagnosis: Likely upper respiratory infection, sinusitis, viral infection, bronchitis and other (Exacerbation of COPD) Medical Records Attestation: I reviewed the patient's medical records. Lab Data Attestation: I reviewed the patient's lab results. Critical Care Time Critical Care Time Critical Care Time: No Discharge Plan Discharge Clinical Impression: Bronchitis, Tobacco abuse Sinusitis Qualifiers: Sinusitis location: pansinusitis Chronicity: acute Recurrence: not specified as recurrent Qualified Code(s): J01.40 - Acute pansinusitis, unspecified Patient Disposition: Home, Self-Care Condition: Stable Instructions: Antibiotic Form, Sinusitis (ED), Acute Bronchitis (ED) Additional Instructions: Increase fluids especially juices and water [id number] cough and cold medicine of your choice for your symptoms Prescription cough medicine as directed--caution drowsiness and no driving or alcohol Continue your inhaler/nebulizer as directed Steroids as directed--take with food heat to the face 20-30 minutes 4-6 times a day for pain Salt water gargles, throat lozenges or throat sprays as desired Antibiotic as directed--finished the medication Zyrtec Claritin or Pavithra daily include Coricidin brand decongestant If your symptoms persist, change or worsen significantly before you can contact your personal physician then please, without delay, go to the emergency department for further evaluation. Follow-up with PCP in 7-10 days or sooner if needed Follow up with PCP soon in regards to your blood pressure which is elevated above threshold for referral. Blood pressure above 120/80 may indicate pre-hypertension. 140/74 STOP SMOKING Patient Language: Romanian Prescriptions: New azithromycin 500 mg tablet 500 mg PO DAILY 5 Days Qty: 5 0RF promethazine-DM 6.25-15 mg/5 mL syrup 5 ml PO Q4-6H PRN (Reason: cough) Qty: 200 0RF prednisone 50 mg tablet 50 mg PO DAILY Qty: 5 0RF Rx Instructions: daily for 5 days take with food No Action albuterol sulfate 90 mcg/actuation HFA aerosol inhaler INHALATION duloxetine [Cymbalta] 30 mg capsule,delayed release(DR/EC) 30 mg PO DAILY Qty: 90 4RF trazodone 50 mg tablet 100 mg PO QHS Qty: 180 2RF buspirone 10 mg tablet 10 mg PO BID Qty: 180 3RF rosuvastatin [Crestor] 20 mg tablet 20 mg PO DAILY Qty: 90 3RF Breztri Aerosphere 160-9-4.8 mcg/actuation HFA aerosol inhaler 2 inh inhalation BID Qty: 10.7 0RF bupropion HCl 150 mg tablet extended release 24 hr 150 mg PO QAM Qty: 90 0RF metformin 1,000 mg tablet 1,000 mg PO BID Qty: 180 1RF benazepril 10 mg tablet See Rx Instructions .ROUTE .COMPLEX Qty: 90 1RF Dose Instruction: TAKE 1 TABLET BY MOUTH DAILY Rx Instructions: TAKE 1 TABLET BY MOUTH DAILY alprazolam [Xanax] 0.5 mg tablet 0.5 mg PO DAILY PRN (Reason: anxiety) Qty: 60 0RF Follow-up/Referrals: Booker Brown MD [Primary Care Provider] - Stand Alone Forms: Work/School Release IP Time of Disposition: 12:46 Quality [place] Coma Scale Eyes: Open Verbal: Oriented and Alert Motor: Follows Commands [place] Coma Total Score: 15
--- OUTSIDE RECORDS SUMMARY | 2024-06-13 12:28 | XMS_ITS | Clinical Summary ---
Author Organization CC [facility] [address] Address [address] [place] [address] Phone Care Team Providers Care Block Cutter Name Role Phone Booker Brown MD Primary Care Provider [phone] Leah Tijerina MD Unavailable [phone] Lorin Barrientos MD Unavailable + [phone] Allergies Active Allergy Reactions Criticality Noted Date Comments Chlorhexidin-Isopropyl Alcohol Rash,Redness Medium 01/2023 Penicillins Rash,Angioedema High 01/20/[address] (CYMBALTA) 30 mg capsule take 1 capsule by oral route every day 0 0 08/07/19 16 Active Additional Information Patient taking differently:30 mgoral Every morning, Indications: Anxiety with Depression, Informant: Self, Reported on 04/23/2024 PROAIR HFA 90 mcg/actuation inhalerIndicat ions:Acute Asthma Attack,Broncho spasm Prevention Inhale 2 puffs every 6 (six) hours as needed for wheezing 0 02/09/20 17 Active ALPRAZolam (XANAX) 0.5 mg tabletIndicati ons:anxiety,SL EEP Take 1 tablet (0.5 mg total) by mouth nightly as needed for sleep or anxiety 0 12/31/19 17 Active benazepril (LOTENSIN) 10 mg tabletIndicati ons:hypertensi on Take 1 tablet (10 mg total) by mouth every morning 2 02/05/20 17 Active busPIRone (BUSPAR) 10 mg tabletIndicati ons:Generalize d Anxiety Disorder Take 1 tablet (10 mg total) by mouth 2 (two) times a day 0 01/25/20 17 Active metFORMIN (GLUCOPHAGE) 1,000 mg tabletIndicati ons:type 2 diabetes mellitus Take 1 tablet (1,000 mg total) by mouth 2 (two) times a day with meals Active rosuvastatin (CRESTOR) 20 mg tabletIndicati ons:hyperlipid emia Take 1 tablet (20 mg total) by mouth every morning 03/08/20 22 Active buPROPion XL (WELLBUTRIN XL) 150 mg 24 hr tabletIndicati ons:Anxiety with Depression Take 1 tablet (150 mg total) by mouth every morning 03/23/20 22 Active traZODone (DESYREL) 50 mg tabletIndicati ons:insomnia associated with depression Take 2 tablets (100 mg total) by mouth nightly 03/23/20 22 Active lidocaine-pril ocaine (EMLA) creamIndicatio ns:Administrat ion of Local Anesthesia Apply to port area 1 hour prior to port access. Cover with a plastic, non-absorbing dressing. 30 g 3 09/23/19 23 Active prochlorperazi ne (COMPAZINE) 10 mg tabletIndicati ons:Malignant neoplasm of hepatic flexure (CMS/HCC) (HCC) TAKE 1 TABLET(10 MG) BY MOUTH EVERY 6 HOURS NEEDED FOR NAUSEA OR VOMITING. USE FIRST 120 tablet 3 11/13/19 23 Active cyanocobalamin (Vitamin B-12) 1,000 mcg tabletIndicati ons:Prevention of Vitamin B12 Deficiency Take 1 tablet (1,000 mcg total) by mouth daily 30 tablet 2 01/13/20 23 Active Additional Information Patient not taking.Informant: Self, Reported on 10/24/2023 ibuprofen-diph enhydramine HCl 200-25 mg capsuleIndicat ions:Insomnia Take 2 capsules by mouth nightly Active MULTIVITAMIN ORALIndication s:supplement Take 1 tablet by mouth every morning Activ e acetaminophen (Tylenol Extra Strength) 500 mg tabletIndicati ons:Pain Take 2 tablets (1,000 mg total) by mouth every 6 (six) hours as needed for pain or headaches Active ondansetron (ZOFRAN) 8 mg tabletIndicati ons:Malignant neoplasm of hepatic flexure (CMS/HCC) (HCC) Take 1 tablet (8 mg total) by mouth 2 (two) times a day as needed for nausea Use if prochlorperazine does not stop nausea. 10 tablet 02/12/20 23 Active meloxicam (MOBIC) 15 mg tablet TAKE 1 TABLET BY MOUTH DAILY FOR SHOULDER PAIN 06/23/19 24 Active Fransico Aerosphere 160-9-4.8 mcg/actuation inhaler Inhale 2 puffs 2 (two) times a day 09/30/19 24 Active UNABLE TO FIND Med Name: Vitamin B complex vitamins Active UNKNOWN TO PATIENT Unknown medication for nerve repair Active diphenoxylate- atropine (LOMOTIL) 2.5-0.025 mg per tabletIndicati ons:Chemothera py-Induced Diarrhea,diarr hea Take 2 tablets by mouth daily as needed for diarrhea 60 tablet 04/23/20 24 Active Active Problems Problem Noted Date Diagnosed Date Colon cancer screening 07/29/2023 Diarrhea 07/29/2023 Left renal mass 02/10/2023 Anxiety 09/09/2022 Bronchitis 09/09/2022 Chronic obstructive lung disease 09/09/2022 Assessment & Plan (02/10/2023 5:44 PM CDT): Home regimen: Symbicort 160-4.5 mcg 2 puffs BID, albuterol inhaler PRN. -RAVEN Robertson prn Depressive disorder 09/09/2022 Assessment & Plan (02/11/2023 2:40 AM CDT): Home regimen: duloxetine 30 mg daily, trazodone 100 mg qHS, bupropion 150 mg qAM. -continue duloxetine, trazodone, bupropion Diabetes mellitus 09/09/2022 Assessment & Plan (02/10/2023 5:44 PM CDT): Home regimen: metformin 1 g BID, rosuvastatin 20 mg daily, benazepril 10 mg daily. 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 Barrientos of medical oncology. 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 She is now s/p right hemicolectomy in 04/2022, adjuvant CAPOX for 1 cycle 06/2022 then switched to FOLFOX in 07/2022 which she continued through 11/2022. She had no evidence of recurrent disease on 01/12/23. - f/u outpatient Renal mass 03/18/2022 Assessment & Plan (02/11/2023 9:07 AM CDT): Incidentally found 1.6 cm left renal mass noted on outside imaging in February 2022. 01/10/23 CT CAP W Contrast showed expphytic left renal elsion with solid nodule remains suspicious for primary renal neoplasm. She established care with Urology in 12/2022, and they completed cryoablation 02/10/23. 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 17 Resolved Problems Problem Noted Date Diagnosed Date Resolved Date Malignant neoplasm of colon 09/09/2022 07/11/2023 Colon cancer (CMS/HCC) 04/16/202205/12 Biliary colic 03/30/2022 04/19/2022 Overview (04/07/2022): Added automatically from request for surgery [id number] Encounters Date Type Department Care Team Description 04/23/2024 3:52 PM SCORE CALLER - 04/23/2024 11:59 PM SCORE CALLER Hospital Encounter [facility] [place] [address] [place] [address] Malignant neoplasm of hepatic flexure (CMS/HCC) (HCC) Discharge Disposition: Discharge to home or self care 04/23/2024 11:00 AM SCORE CALLER Office Visit [facility] [address] [place] [address] Lorin Barrientos MD Malignant neoplasm of hepatic flexure (CMS/HCC) (HCC) (Primary Dx); Diarrhea, unspecified type; Abnormal screening mammogram 04/23/2024 10:15 AM SCORE CALLER Clinical Support [facility] [address] [place] [address] Malignant neoplasm of hepatic flexure (CMS/HCC) (HCC) 04/23/2024 9:05 AM SCORE CALLER - 04/23/2024 11:59 PM SCORE CALLER Hospital Encounter [facility] [address] [place] [address] Malignant neoplasm of hepatic flexure (CMS/HCC) (HCC); Malignant neoplasm of kidney, unspecified laterality (HCC) Discharge Disposition: Discharge to home or self care from Last 3 Months Surgical History Surgery Date Site/Laterality Comments ENDOMETRIAL ABLATION W/ NOVASURE 05/16/2015 - 05/15/2016 COLONOSCOPY 05/16/2021 - 05/15/2022 PORT PLACEMENT CHEST >5 YEARS 06/21/2022 N/A COLON SURGERY 04/16/2022 CHOLECYSTECTOMY 04/16/2022 Medical History Medical History Date Comments Pre-diabetes 2016 Hypertension Depression COPD (chronic obstructive pu lmonary disease) (HCC) Genital warts 1986 GERD with esophagitis Vocal cord paralysis Biliary colic 03/30/2022 Added automatica lly from request for surgery [id number] Cancer (CMS/HCC) (HCC) 02/12/2022 Diabetes mellitus (HCC) 2014 Motion sickness Family History Medical History Relation Name Comments Depression Daughter 1 Valentina Gillespie Mental illness Daughter 1 Valentina Gillespie Obesity Daughter 1 Valentina Gillespie Depression Daughter 2 Pauline Farias Mental illness Daughter 2 Pauline Farias Heart attack Father Jairo hoyos COD Heart disease Father Jairo hoyos Hypertension Father Jairo hoyos Arthritis Maternal Grandfather Juma Turnbeaugh Heart attack Maternal Grandfather Juma Turnbeaugh Heart disease Maternal Grandfather Juma Turnbeauroberto Hypertension Maternal Grandfather Juma Turnbeaugh Prostate cancer Maternal Grandfather Juma Turnbeaugh Arthritis Maternal Grandmother Leigh Turnbeaugh Depression Maternal Grandmother Leigh Turnbeaugh Heart attack Maternal Grandmother Leigh Turnbeaugh Hypertension Maternal Grandmother Leigh Turnbeaugh Stroke Maternal Grandmother Leigh Turnbeaugh COD Vision loss Maternal Grandmother Leigh Turnbeaugh Arthritis Mother [place] Hoyos COPD Mother [place] Depression Mother [place] Hoyos Diabetes Mother [place] Hoyos Heart attack Mother [place] Hoyos Heart disease Mother [place] Hoyos Heart failure Mother [place] Hoyos Hypertension Mother [place] Hoyos Kidney failure Mother [place] Hoyos COD Mental illness Mother [place] Hoyos Obesity Mother [place]os Cancer Mother's Brother 1 Edward Turnbeaugh Prostate cancer Mother's Brother 1 Edward Turnbeaugh Arthritis Mother's Brother 2 Juma Alex Turnbeaugh Depression Mother's Brother 2 Juma Alex Turnbeaugh Arthritis Mother's Sister Kassy Turnbeaugh Depression Mother's Sister Kassy Turnbeaugh Obesity Mother's Sister Kassy Turnbeaugh Depression Sister Marzena Pople Mental illness Sister Marzena Pople Anesthesia problems Neg Hx Relation Name Status Comments Daughter 1 Valentina Gillespie Daughter 2 Pauline Farias Father Jairo hoyos Maternal Grandfather Juma Camposbeorion Maternal Grandmother Leigh Turnbeaugh Mother [place] Hoyos Mother's Brother 1 Edward Turnbeaugh Mother's Brother 2 Juma Alex Turnbeaugh Mother's Sister Kassy Turnbeaugh Sister Marzena Pople Social History Tobacco Use Types Packs/Day Years Used Date Smoking Tobacco: Every Day Cigarettes 1.5 37 Smokeless Tobacco: Never Tobacco Cessation:Ready to Q uit: No; Counseling Given: Yes Comments:Smoking History Packs/day: 2 Packs Alcohol Use Standard Drinks/Week Comments No 0 (1 standard drink = 0.6 oz pur e alcohol) AUDIT-C Answer Date Recorded Frequency of Alcohol Consumption Not on file 11/11/2023 Q2: How many drinks containi ng alcohol do you have on a typical day when you are drinking? Patient does not drink Frequency of Binge Drinking Not on file 10/15 Personal Safety Answer Date Recorded Have you ever been in or are you currently in a harmful physical or emotional relationship or is someone making you feel afraid or unsafe? 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 Not on file Not on file Not on file Obstetrics History Para Term AB IAB SAB Ectopic Multiple Livin g Live Births 2 2 2 0 0 0 0 0 0 2 2 Date Outcome GA Total Labor Labor/2nd/3rd Weight Sex Type Anes PTL Sena A1 A5 Name Clin Term Term Last Filed Vital Signs Vital Sign Reading Time Taken Comments Blood Pressure 122/78 04/23/2024 10:50 AM SCORE CALLER Pulse 79 04/23/2024 10:50 AM SCORE CALLER Temperature 36.7 ??C (98.1 ??F) 04/23/2024 1 0:50 AM SCORE CALLER Respiratory Rate 18 04/23/2024 10:5 0 AM SCORE CALLER Oxygen Saturation 97% 04/23/2024 10: 50 AM SCORE CALLER Inhaled Oxygen Concentration - - Weight 97.4 kg (214 lb 12.8 oz) 024 10:50 AM SCORE CALLER Height 172.7 cm (5' 8 ) 11/11/2023 10:5 7 AM CDT Body Mass Index 32.66 11/11/2023 10:57 AM CDT Plan of Treatment Health Maintenance Due Date Last Done Comments Albumin Creatinine Ratio, Urine 1969 Depression Screening 1969 Hepatitis C Screening 1969 Dilated Eye Exam 1969 Foot Exam 1969 Lipid Panel 1969 Pneumococcal vaccine <65 (1 of 2 - PCV) 1975 DTaP/Tdap/Td Vaccine (1 - Tdap) 1980 Hepatitis B Screening 1987 Regular Well Visit/Exam 18-64 02/17/2018 02/17/2017 Cervical Cancer Screening 02/18/2018 02/18/2017 Lung Cancer Screening 2019 Zoster Vaccine (1 of 2) 2019 Hemoglobin A1C 08/04/2023 02/03/2023, 04/07/2022 Covid-19 Vaccine (3 2023-2 5 season) 2024 08/02/2020, 07/05/2020 Influenza Vaccine (#1) 2024 Breast Cancer Screening-Mammogram 09/15/2024 024 eGFR 04/23/2025 04/23/2024, 01/14, 10/24/2023, Additional history exists Colon Cancer Screening-Colonoscopy 11/10/2033 11/11/2023 Colon Cancer Screening-CT Colonography Discontinued 11/11/2023 Colon Cancer Screening-DNA Stool Discontinued 11/11/19 Colon Cancer Screening-FIT Discontinued 11/11/2023 Colon Cancer Screening-Sigmoidoscopy Discontinued 11/11/2023 Medical Devices Implanted Type Area Healthcare Insurance Sales Agent Device Identifier Shelf Expiration Date Model / Serial / Lot [employer] Powerport Clearvue Airguard 6fr 1 Lumen Lightweight Latex Free [id number] - [id number] Implanted:Qty: 1 on 06/21/2022 at [facility] [employer] 08/14/2023 [id number] / / [id number] Procedures Procedure Name Priority Date/Time Associated Diagnosis Comments EGFR Routine 04/23/2024 10:00 AM SCORE CALLER Malignant neoplasm of hepatic flexure (CMS/HCC) (HCC) DIFFERENTIAL AUTO Routine 04/23/2024 10: 00 AM SCORE CALLER Malignant neoplasm of hepatic flexure (CMS/HCC) (HCC) CBC WITH AUTO DIFFERENTIAL Routine 04/23/2024 10:00 AM SCORE CALLER Malignant neoplasm of hepatic flexure (CMS/HCC) (HCC) COMPREHENSIVE METABOLIC PANEL Routine 04/23/2024 10:00 AM SCORE CALLER Malignant neoplasm of hepatic flexure (CMS/HCC) (HCC) CEA Routine 04/23/2024 10:00 AM SCORE CALLER Malignant neoplasm of hepatic flexure (CMS/HCC) (HCC) US AXILLARY RIGHT Schedule Routine, Read Routine (OP Routine) 04/23/2024 9:18 AM SCORE CALLER Malignant neoplasm of hepatic flexure (CMS/HCC) (HCC) Malignant neoplasm of kidney, unspecified laterality (HCC) COLONOSCOPY 11/11/2023 11:47 AM CDT SCREENING MAMMOGRAM BILATERAL W LAN Schedule Routine, Read Routine (OP Routine) 09/16/2023 3:19 PM CDT Healthcare maintenance POCT HEMOGLOBIN A1C Routine 02/03/2023 1 2:49 PM CDT THINPREP IMAGING PAP REFLEX HPV MRNA E6/E7 Routine 02/18/2017 9:52 AM CDT from Last 3 Months or Most Recently Relevant to Health Maintenance Results * eGFR (04/23/2024 10:00 AM SCORE CALLER) eGFR >90 >=60 mL/min/1. 73 m2 Comment: Interpretive Data Reference Interval Normal ?>/= 90 mL/min/1.73m2 Mildly decreased* ? 60 - 89 mL/min/1.73m2 Mildly to moderately decreased ?45 - 59 mL/min/1.73m2 Moderately to severely decreased ??30 - 44 mL/min/1.73m2 Severely decreased ?15 - 29 mL/min/1.73m2 Kidney Failure ?< 15 ??mL/min/1.73m2 *Relative to young adult level Estimated glomerular filtration rate is determined by the 2020 CKD-EPI equation recommended by the National Kidney Foundation (A Unifying Approach to GFR Estimation: Recommendations of the NKF-ASK Task Force on Reassessing the Inclusion of Race in Diagnosing Kidney Disease, JASN 2020). The CKD-EPI equation should not be used for patients with unstable renal function and has not been validated in children and those over 70. Current interpretive data was last reviewed 2021. Blood 04/23/2024 10:0 0 AM SCORE CALLER 04/23/2024 10:09 AM SCORE CALLER us Lorin Barrientos MD LAB BLOOD ORDERABLES F inal Result [facility] [address] [facility] Department [place] [address] * Differential, auto (04/23/2024 10:00 AM SCORE CALLER) Neutrophil abs 5.1 1.5 - 6.5 K/cumm Comment:Testing performed by : [facility] [place] [address] Lymphocyte abs 2.6 0.8 - 3.3 K/cumm CERNER BJSP Comment:Testing performed by : [facility],[address], [place] [address] Monocyte abs 0.4 0.2 - 0.8 K/cumm [facility] BJ[facility] Comment:Testing performed by : [facility] [place] [address] Eosinophil abs 0.3 0.0 - 0.5 K/cumm CERNER BJSP Comment:Testing performed by : [facility] [place] [address] Basophil abs 0.1 0.0 - 0.1 K/cumm CERNER BJSP Comment:Testing performed by : [facility] [place] [address] Neutrophil pct 59.7 % [facility] BJ[facility] Comment: Interpretive Data Percent cell count reference ranges are not reported, since discordance with absolute values may lead to misinterpretation of CBC data. Current Interpretive Data was last revised on 2017. Testing performed by: [facility],[address], [place] [address] Imm gran pct 0.4 % CERNER BJSP Comment: Interpretive Data Percent cell count reference ranges are not reported, since discordance with absolute values may lead to misinterpretation of CBC data. Current Interpretive Data was last revised on 2017. Testing performed by: [facility] [address], [place] [address] Lymphocyte pct 30.9 % [facility] Comment: Interpretive Data Percent cell count reference ranges are not reported, since discordance with absolute values may lead to misinterpretation of CBC data. Current Interpretive Data was last revised on 2017. Testing performed by: [facility],[address], [place] [address] Monocyte pct 4.3 % [facility] Comment: Interpretive Data Percent cell count reference ranges are not reported, since discordance with absolute values may lead to misinterpretation of CBC data. Current Interpretive Data was last revised on 2017. Testing performed by: [facility],[address], [facility] [address] Eosinophil pct 3.4 % [facility] Comment: Interpretive Data Percent cell count reference ranges are not reported, since discordance with absolute values may lead to misinterpretation of CBC data. Current Interpretive Data was last revised on 2017. Testing performed by: [facility] Entrance [facility], [place] [address] Basophil pct 1.3 % [facility] Comment: Interpretive Data Percent cell count reference ranges are not reported, since discordance with absolute values may lead to misinterpretation of CBC data. Current Interpretive Data was last revised on 2017. Testing performed by: [facility],[address] [place] [address] [place] [address] Blood 04/23/2024 10:0 0 AM SCORE CALLER 04/23/2024 10:01 AM SCORE CALLER us Lorin Barrientos MD LAB BLOOD ORDERABLES F inal Result [facility] [address] [facility] Department [place] [address] * (ABNORMAL) CBC with auto differential (04/23/2024 10:00 AM SCORE CALLER) WBC 8.6 3.8 - 9.9 K/cumm Comment:Testing performed by : [facility] [place] [address] Hgb 13.4 11.9 - 15.5 g/dL CERNER [facility]SP[facility] Comment:Testing performed by : [facility] [place] [address] Hct 40.1 35.6 - 45.5 % [facility] Comment:Testing performed by : [facility] [place] [address] Plt 190 150 - 400 K/cumm CERNER [facility] Comment:Testing performed by : [place] [address] MPV 8.5(L) 9.1 - 12.3 fL [facility]ER [facility] Comment:Testing performed by : [place] [address] RBC 4.37 3.90 - 5.20 M/cumm [facility] Comment:Testing performed by : [place] [address] MCV 91.8 81.3 - 96.4 fL [facility] Comment:Testing performed by : [place] [address] MCH 30.7 27.1 - 33.3 pg [facility] Comment:Testing performed by : [place] [address] [place] [address] MCHC 33.4 32.3 - 35.7 g/dL [facility] Comment:Testing performed by : [place] [address] RDW CV 14.2 11.1 - 14.9 % [facility] Comment:Testing performed by : [place] [address] [place] [address] RDW SD 47.8 35.7 - 48.1 fL [facility] Comment:Testing performed by : [place] [address] [place] [address] NRBC abs 0.00 0.00 - 0.01 K/cumm C[facility]ER [facility] Comment:Testing performed by : [place] [address] [place] [address] Blood 04/23/2024 10:0 0 AM SCORE CALLER 04/23/2024 10:01 AM SCORE CALLER Lorin Barrientos MD LAB BLOOD ORDERABLES F inal Result Performing Organization Address [facility] de Phone Number [address] [place] [address] * (ABNORMAL) CEA (04/23/2024 10:00 AM SCORE CALLER) [facility] CEA 10.3(H) <=5.0 ng/mL Comment: Interpretive Data Reference Range: Non-Smokers: < or = 3.0 ng/mL Some Smokers may have elevated levels, usually < 5.0 ng/mL The Genoveva CEA assay procedure was used. Results from different manufacturers or methods may not be comparable. Serial testing should be performed using the same method. Testing performed by: [facility], [address] [place] [address]., [address] Blood 04/23/2024 10:0 0 AM SCORE CALLER 04/23/2024 2:12 PM SCORE CALLER Lorin Barrientos MD LAB BLOOD ORDERABLES F inal Result Performing Organization Address [facility] de Phone Number [address] [place] [address] * Comprehensive metabolic panel (04/23/2024 10:00 AM SCORE CALLER) [facility] Sodium 140 135 - 145 mmol/L Potassium, pl 3.8 3.3 - 4.9 mmol/L [facility] Chloride 107 97 - 110 mmol/L [facility] CO2 24 22 - 32 mmol/L [facility] Anion gap 9 2 - 15 mmol/L [facility] BUN 8 6 - 25 mg/dL [facility] Creatinine 0.76 0.60 - 1.10 mg/dL [facility] Glucose 122 70 - 199 mg/dL [facility] Comment: Interpretive Data Fasting glucose >/= 126 mg/dl is diagnostic for diabetes. ?? Fasting is defined as no caloric intake for at least 8 hours. Fasting glucose between 100 mg/dl to 125 mg/dl is diagnostic of prediabetes. In a patient with classic symptoms of hyperglycemia or hyperglycemic crisis, a random glucose >/= 200 mg/dl is diagnostic for diabetes. In the absence of unequivocal hyperglycemia, results should be confirmed by repeat testing. The classification and Diagnosis of Diabetes Diabetes Care 202; 46: S19-S40. Current interpretive data was last revised 2022. Calcium 9.0 8.5 - 10.3 mg/dL [facility] Bilirubin, total <0.1 0.1 - 1.2 mg/dL [facility] Protein, pl 7.0 6.5 - 8.5 g/dL [facility] Albumin 4.2 3.5 - 5.0 g/dL [facility] Alk phos 60 40 - 130 Units/L [facility] ALT 23 7 - 45 Units/L [facility] AST 20 10 - 45 Units/L [facility] Blood 04/23/2024 10:0 0 AM SCORE CALLER 04/23/2024 10:09 AM SCORE CALLER Lorin Barrientos MD LAB BLOOD ORDERABLES E dited Result - Final Performing Organization Address City/State/[facility] Co de Phone Number [facility] [address] [facility] Department [place] [address] * US Axillary Breast Right (04/23/2024 9:18 AM SCORE CALLER) Anatomical Region Laterality Modality Upper Extremities Right Ultrasound 04/23/2024 10:5 6 AM SCORE CALLER Impressions 04/23/2024 10:56 AM SCORE CALLER Redemonstrated is a 2 cm right axillary lymph node with minimal cortical thickening up to 3.4 mm, likely reactive. ??This is probably benign. ??Recommend follow-up ultrasound in 5 months. ??Patient will be due for bilateral mammography at that time. ??Therefore, the patient should be scheduled for bilateral diagnostic mammography with right axillary ultrasound. OVERALL FINAL ASSESSMENT: BI-RADS Category 3: Probably Benign. RECOMMENDATION: Recommend follow-up diagnostic breast imaging in ??5 months Electronically signed by: Arlin Johnson M.D. Narrative 04/23/2024 10:56 AM SCORE CALLER EXAMINATION: RIGHT AXILLARY ULTRASOUND HISTORY: Short interval follow-up of right axillary lymph node with mild cortical thickening. ??History of colon cancer. COMPARISON: 10/14/2023 TECHNIQUE: Directed ultrasound evaluation of the RIGHT axilla was performed. ULTRASOUND FINDINGS: There is a 2 x 0.8 cm right axillary lymph node with mild cortical thickening measuring 3.4 mm. ??It has a fatty hilum. Procedure Note Arlin Johnson MD - 04/23/2024 EXAMINATION: RIGHT AXILLARY ULTRASOUND HISTORY: Short interval follow-up of right axillary lymph node with mild cortical thickening. History of colon cancer. COMPARISON: 10/14/2023 TECHNIQUE: Directed ultrasound evaluation of the RIGHT axilla was performed. ULTRASOUND FINDINGS: There is a 2 x 0.8 cm right axillary lymph node with mild cortical thickening measuring 3.4 mm. It has a fatty hilum. IMPRESSION: Redemonstrated is a 2 cm right axillary lymph node with minimal cortical thickening up to 3.4 mm, likely reactive. This is probably benign. Recommend follow-up ultrasound in 5 months. Patient will be due for bilateral mammography at that time. Therefore, the patient should be scheduled for bilateral diagnostic mammography with right axillary ultrasound. OVERALL FINAL ASSESSMENT: BI-RADS Category 3: Probably Benign. RECOMMENDATION: Recommend follow-up diagnostic breast imaging in 5 months Electronically signed by: Arlin Johnson M.D. us Lorin Barrientos MD IMG US PROCEDURES Kathy l Result * Colonoscopy (11/11/2023 11:47 AM CDT) Anatomical Region Laterality Modality Other Narrative Procedure Note Jayson Watters MD - 11/11/2023 11:47 AM CDT ENDOSCOPY LAB Patient Name: Marissa Salcedo Procedure Date: 11/11/2023 11:47 AM Date of : 1970 Admit Type: Outpatient Age: 53 Gender: Female Attending MD: Jayson Watters M.D. Room: [facility] ENDOSCOPY ROOM 05 Note Status: Finalized Procedure: Colonoscopy Indications: High risk colon cancer surveillance: Personalhistory of colon cancer; h/o T3N1b Colon Cancer at Hepatic Flexure 01/2022 w/p R hemicolectomy and adjuvant chemotherapy. Here for index post operative surveillance. Providers: Jayson Watters M.D. Referring MD: Lorin Barrientos M.D. Medicines: Monitored Anesthesia Care Complications: No immediate complications. Estimated blood loss:None. Estimated Blood Loss: Estimated blood loss: none. Procedure: Pre-Anesthesia Assessment: - The risks and benefits of the procedure and the sedation options and risks were discussed with the patient. All questions were answered and informed consent was obtained. - The anesthesia plan was to use monitoredanesthesia care (MAC). The benefits, risks and alternatives of theprocedure and sedation were discussed and informed consentwas obtained. All questions were answered. Please referto the signed informed consent document in the medical record. The scope was passed under direct vision.The [id number] was introduced through the anusand advanced to the ileocolonic anastomosis. The colonoscopy was performed without difficulty. The patient tolerated the procedure well. The qualityof the bowel preparation was evaluated using the BBPS (Chaplin Bowel Preparation Scale) with scores of:Right Colon = 3 (entire mucosa seen well with no residual staining, small fragments of stool or opaqueliquid), Transverse Colon = 3 (entire mucosa seen well withno residual staining, small fragments of stool oropaque liquid) and Left Colon = 3 (entire mucosa seen well with no residual staining, small fragments of stoolor opaque liquid). The total BBPS score equals 9. The quality of the bowel preparation was good. Bowelprep was administered using a split dose. Findings: The perianal and digital rectal examinations were normal. Two semi-sessile polyps were found in the rectum. The polyps were 4to 6 mm in size. These polyps were removed with a cold snare. Resectionand retrieval were complete. A tattoo was seen in the recto-sigmoid colon. The tattoo siteappeared normal. There was evidence of a prior end-to-side ileo-colonic anastomosis in the proximal transverse colon. This was patent and was characterizedby healthy appearing mucosa. The anastomosis was traversed. The pat-terminal ileum appeared normal. Multiple small and large-mouthed diverticula were found in thesigmoid colon. Internal hemorrhoids were found during retroflexion. The hemorrhoids were moderate. Impression: - Two 4 to 6 mm polyps in the rectum, removed witha cold snare. Resected and retrieved. - A tattoo was seen in the recto-sigmoid colon. The tattoo site appeared normal. - Patent end-to-side ileo-colonic anastomosis inthe proximal transverse colon. - The examined portion of the ileum was normal. - Diverticulosis in the sigmoid colon. - Internal hemorrhoids. Recommendation: - Observe patient's clinical course followingtoday's Colonoscopy. - Await pathology results. - Repeat colonoscopy in 3 years. - Resume home medications and diet. - Return to primary care physician as previously scheduled. - In the unusual situation that you developabdominal pain, bleeding or other significant problems in the days following this procedure please call my officeat [phone] to speak to my nurses. After hours and evenings please call [phone] andspeak to the GI fellow healthcare applications analyst. Please tell them that Dr. Watters did your procedure and that your wereinstructed to have the fellow call me or the physiciancovering for me to discuss the management of your condition.If you have an urgent problem, [facility] and have the ER doctor call myoffice during the day or the GI Fellow after hours and weekends to arrange admission or transfer to our facility. - Call my nurse Teagan Schultz RN in the GI office at [phone] for your final pathology results in 7 days. Attending Participation: I personally performed the entire procedure. Electronically Signed By: Jayson Watters M.D. Jayson Watters M.D. 11/11/2023 12:10:22 PM Number of Addenda: 0 Note Initiated On: 11/11/2023 11:47 AM us Jayson Watters MD ENDOSCOPY PROCEDURES Final Result * Screening Mammogram Bilateral W Lan (09/16/2023 3:19 PM CDT) Anatomical Region Laterality Modality Breast Bilateral Mammography 09/16/2023 Impressions 09/16/2023 4:01 PM CDT Lymph node with calcifications in the right axilla with probably axillary tail small node require additional evaluation. A breast ultrasound exam is recommended. No mammographic evidence of malignancy in either breast. BI-RADS Category 0: Incomplete: Needs Additional Imaging Evaluation Narrative 09/16/2023 4:01 PM CDT EXAM: ??Bilateral Digital Screening Mammogram With Tomosynthesis - 09/16/2023 HISTORY: Patient is a 53 year old female and is seen for screening. ?? The patient has a history of colon cancer in 2021 and kidney cancer in 2021. Chemotherapy FILMS COMPARED: No prior films were available for comparison. MAMMOGRAM FINDINGS: Bilateral CC tomosynthesis and C-view images, bilateral MLO tomosynthesis and C-view images were obtained. There are scattered fibroglandular densities. There is a lymph node with associated calcifications in the right axilla. Small noncalcified oval masses in right axillary tail likely represent small nodes. No suspicious masses, calcifications or other abnormalities are seen in either breast. Digital breast tomosynthesis was performed and reviewed as a part of this examination. Procedure Note Daisy Hill MD - 09/16/2023 EXAM: Bilateral Digital Screening Mammogram With Tomosynthesis - 09/16/2023 HISTORY: Patient is a 53 year old female and is seen for screening. The patient has a history of colon cancer in 2021 and kidney cancer in 2021. Chemotherapy FILMS COMPARED: No prior films were available for comparison. MAMMOGRAM FINDINGS: Bilateral CC tomosynthesis and C-view images, bilateral MLOtomosynthesis and C-view images were obtained. There are scattered fibroglandular densities. There is a lymph node with associated calcifications in the right axilla.Small noncalcified oval masses in right axillary tail likely represent smallnodes. No suspicious masses, calcifications or other abnormalities are seen in either breast. Digital breast tomosynthesis was performed and reviewed as a part ofthis examination. IMPRESSION: Lymph node with calcifications in the right axilla with probably axillarytail small node require additional evaluation. A breast ultrasound exam is recommended. No mammographic evidence of malignancy in either breast. BI-RADS Category 0: Incomplete: Needs Additional Imaging Evaluation Lorin Barrientos MD IM MAMMO PROCEDURES F inal Result * POCT hemoglobin A1c (02/03/2023 12:49 PM CDT) Hgb A1C, POC 5.3 4.0 - 5.6 % [facility] Est Average Gluc POC 105 mg/dL [facility] Comment: The ADA recommends reporting an estimated Average Glucose (eAG) with all Hemoglobin A1c results using the equation derived from a study of 507 normal and diabetic adults. ??Minority populations were underrepresented and children were not included. ?? (Diabetes Care 31:1764-4321, 2008). ??The eAG is not equivalent to a fasting glucose. Blood 02/03/2023 12:4 9 PM CDT 02/03/2023 12:49 PM CDT us Notinfile Unknown POINT OF CARE TEST ORDERABLES Final Result [facility] Department [place] [address] * ThinPrep Imaging Pap Reflex HPV mRNA E6/E7 (02/18/2017 9:52 AM CDT) Report status CANCELED [facility] Comment:Result canceled by t ritika ancillary Clinical information [facility] Comment:Information not prov ided LMP NONE GIVEN [facility] Previous Pap NONE GIVEN [facility] Prev. Bx NONE GIVEN [facility] Source [facility] Comment:Cervix, Endocervix Pap, specimen adequacy [facility] Comment: Satisfactory for evaluation. Endocervical/transformation zone component present. Age and/or menstrual status not provided Pap, general categorization CANCELED [facility] Comment:Result canceled by tania yost ancillary HPV interp [facility] Comment:Negative for intraep ithelial lesion or malignancy. Infection: [facility] Comment: Fungal organisms morphologically consistent with Verito spp. COMMENTS [facility] Comment: This Pap test has been evaluated with computer assisted technology. [employer] [facility] - Comment: LMT, CT(ASCP) CT screening location: [place] [address] [place] [address] Review ice cream man CANCELED [facility] Comment:Result canceled by t ritika ancillary Pathologist CANCELED [facility] Comment:Result canceled by tania yost ancillary 02/18/2017 9:52 AM CDT 02/21/2017 9:57 AM CDT Narrative Resulting Agency Comment Performing Organization Information: ?Site ID: ?[facility] ?Address: [facility] [place] [address] ?Director: Tanvir Guerra MD us Huma Haile MD LAB PATHOLOGY ORDER LOBO Final Result [facility] [place], [place] from Last 3 Months or Most Recently Relevant to Health Maintenance Insurance [place] [facility] Advance Directives For more information, please contact: [phone] * Full Code (Latest Code Status on File) Date Activated Date Inactivated Comments 11/11/2023 10:33 AM 11/11/2023 4:52 PM * Full Code Date Activated Date Inactivated Comments 02/10/2023 3:29 PM 02/11/2023 3:49 PM * Full Code Date Activated Date Inactivated Comments 04/16/2022 2:30 PM 04/19/2022 11:02 PM Care Teams Block Cutter Relationship Specialty Start Date End Date Booker Brown MD PCP - General 09/10/15 Leah Tijerina MD [address] [facility] [id number] [place] [address] Surgeon Colon and Rectal Surgery 04/19/22 Lorin Barrientos MD [address] [place] [address] Medical Oncologist Medical Oncology 05/12/22
--- OUTSIDE RECORDS SUMMARY | 2024-06-13 12:28 | XMS_ITS | Referral Summary ---
Author Organization [facility] [address] [place] [address] Phone Care Team Providers Care Combat Engineer Name Role Phone Booker Brown MD Primary Care Provider [phone] Leah Tijerina MD Unavailable [phone] Lorin Barrientos MD Unavailable [phone] Encounters Date Type Department Care Team Description 04/23/2024 10:15 AM DRYING TUMBLER OPERATOR Clinical Support [facility] [address] [place] [address] Malignant neoplasm of hepatic flexure (CMS/HCC) (HCC) 04/23/2024 9:05 AM DRYING TUMBLER OPERATOR - 04/23/2024 11:59 PM DRYING TUMBLER OPERATOR Hospital Encounter [facility] [address] [place], [place] [id number] Malignant neoplasm of hepatic flexure (CMS/HCC) (HCC); Malignant neoplasm of kidney, unspecified laterality (HCC) Discharge Disposition: Discharge to home or self care 04/23/2024 11:00 AM DRYING TUMBLER OPERATOR Office Visit [facility] [address] [place] [address] Lorin Barrientos MD Malignant neoplasm of hepatic flexure (CMS/HCC) (HCC) (Primary Dx); Diarrhea, unspecified type; Abnormal screening mammogram 04/23/2024 3:52 PM DRYING TUMBLER OPERATOR - 04/23/2024 11:59 PM DRYING TUMBLER OPERATOR Hospital Encounter [facility] [address] [place] [address] Malignant neoplasm of hepatic flexure (CMS/HCC) (HCC) Discharge Disposition: Discharge to home or self care from Last 3 Months Allergies Active Allergy Reactions Criticality Noted Date [...] DAILY FOR SHOULDER PAIN 06/23/19 24 Active Breztri Aerosphere 160-9-4.8 mcg/actuation inhaler Inhale 2 puffs [...] mcg 2 puffs BID, albuterol inhaler PRN. -Breo, RAVEN prn Depressive disorder 09/09/2022 Assessment & Plan [...] (03/30/2022): Added automatically from request for surgery [id number] Assessment & Plan (02/11/2023 9:07 AM CDT): Follows with Dr. Barrientos of medical oncology. 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 Not on file Not on file Not on file Last Filed Vital Signs Vital Sign Reading Time Taken Comments Blood Pressure 122/78 04/23/2024 10:50 AM DRYING TUMBLER OPERATOR Pulse 79 04/23/2024 10:50 AM DRYING TUMBLER OPERATOR Temperature 36.7 ??C (98.1 ??F) 04/23/2024 1 0:50 AM DRYING TUMBLER OPERATOR Respiratory Rate 18 04/23/2024 10:5 0 AM DRYING TUMBLER OPERATOR Oxygen Saturation 97% 04/23/2024 10: 50 AM DRYING TUMBLER OPERATOR Inhaled Oxygen Concentration - - Weight 97.4 kg (214 lb 12.8 oz) 024 10:50 AM DRYING TUMBLER OPERATOR Height 172.7 cm (5' 8 ) 11/11/2023 10:5 7 AM CDT Body Mass Index 32.66 11/11/2023 10:57 AM CDT Plan of Treatment Not on file Medical Devices Implanted Type Area Stitcher Hand Device Identifier Shelf Expiration Date Model / Serial / Lot [employer] Powerport Clearvue Airguard 6fr 1 Lumen Lightweight Latex Free [id number] - [id number] Implanted:Qty: 1 on 06/21/2022 at [facility] [employer] 08/14/2023 [id number] / / [id number] Procedures Procedure Name Priority Date/Time Associated Diagnosis Comments EGFR Routine 04/23/2024 10:00 AM DRYING TUMBLER OPERATOR Malignant neoplasm of hepatic flexure (CMS/HCC) (HCC) DIFFERENTIAL AUTO Routine 04/23/2024 10: 00 AM DRYING TUMBLER OPERATOR Malignant neoplasm of hepatic flexure (CMS/HCC) (HCC) CBC WITH AUTO DIFFERENTIAL Routine 04/23/2024 10:00 AM DRYING TUMBLER OPERATOR Malignant neoplasm of hepatic flexure (CMS/HCC) (HCC) COMPREHENSIVE METABOLIC PANEL Routine 04/23/2024 10:00 AM DRYING TUMBLER OPERATOR Malignant neoplasm of hepatic flexure (CMS/HCC) (HCC) CEA Routine 04/23/2024 10:00 AM DRYING TUMBLER OPERATOR Malignant neoplasm of hepatic flexure (CMS/HCC) (HCC) US AXILLARY RIGHT Schedule Routine, Read Routine (OP Routine) 04/23/2024 9:18 AM DRYING TUMBLER OPERATOR Malignant neoplasm of hepatic flexure (CMS/HCC) (HCC) [...] Maintenance Results * eGFR (04/23/2024 10:00 AM DRYING TUMBLER OPERATOR) eGFR >90 >=60 mL/min/1. 73 m2 Comment: [...] reviewed 2021. Blood 04/23/2024 10:0 0 AM DRYING TUMBLER OPERATOR 04/23/2024 10:09 AM DRYING TUMBLER OPERATOR us Lorin Barrientos MD LAB BLOOD ORDERABLES F inal Result [facility] [address] [facility] [place] [address] * Differential, auto (04/23/2024 10:00 AM DRYING TUMBLER OPERATOR) Neutrophil abs 5.1 1.5 - 6.5 K/cumm Comment:Testing performed by : [facility] [address], [place] [address] Lymphocyte abs 2.6 0.8 - 3.3 K/cumm [facility] Comment:Testing performed by : [facility] [address], [place] [address] Monocyte abs 0.4 0.2 - 0.8 K/cumm [facility] Comment:Testing performed by : [facility],[address], [place] [address] Eosinophil abs 0.3 0.0 - 0.5 K/cumm [facility] Comment:Testing performed by : [facility],[address], [place] [address] Basophil abs 0.1 0.0 - 0.1 K/cumm [facility] Comment:Testing performed by : [facility] [place] [address] Neutrophil pct 59.7 % [facility] Comment: Interpretive Data Percent cell count reference ranges are not reported, since discordance with absolute values may lead to misinterpretation of CBC data. Current Interpretive Data was last revised on 2017. Testing performed by: [facility],[address], [place] [address] Imm gran pct 0.4 % [facility] Comment: Interpretive Data Percent cell count reference ranges are not reported, since discordance with absolute values may lead to misinterpretation of CBC data. Current Interpretive Data was last revised on 2017. Testing performed by: [facility] [place] [address] Lymphocyte pct 30.9 % [facility] Comment: Interpretive Data Percent cell count reference ranges are not reported, since discordance with absolute values may lead to misinterpretation of CBC data. Current Interpretive Data was last revised on 2017. Testing performed by: [facility] [place] [address] Monocyte pct 4.3 % [facility] Comment: Interpretive Data Percent cell count reference ranges are not reported, since discordance with absolute values may lead to misinterpretation of CBC data. Current Interpretive Data was last revised on 2017. Testing performed by: [facility],[address] [place] [id number] Eosinophil pct 3.4 % [facility] Comment: Interpretive Data Percent cell count reference ranges are not reported, since discordance with absolute values may lead to misinterpretation of CBC data. Current Interpretive Data was last revised on 2017. Testing performed by: [facility],[address] [place] [address], [place] [id number] Basophil pct 1.3 % [facility] Comment: Interpretive Data Percent cell count reference ranges are not reported, since discordance with absolute values may lead to misinterpretation of CBC data. Current Interpretive Data was last revised on 2017. Testing performed by: [facility],[address] [place] [id number] Blood 04/23/2024 10:0 0 AM DRYING TUMBLER OPERATOR 04/23/2024 10:01 AM DRYING TUMBLER OPERATOR us Lorin Barrientos MD LAB BLOOD ORDERABLES F inal Result [facility] [address] [facility] [place] [address] * (ABNORMAL) CBC with auto differential (04/23/2024 10:00 AM DRYING TUMBLER OPERATOR) WBC 8.6 3.8 - 9.9 K/cumm Comment:Testing performed by : [place] [address] Hgb 13.4 11.9 - 15.5 g/dL [facility] Comment:Testing performed by : [place] [address] Hct 40.1 35.6 - 45.5 % [facility] Comment:Testing performed by : [facility],[address] [place] [address] Plt 190 150 - 400 K/cumm [facility] Comment:Testing performed by : [place] [address] MPV 8.5(L) 9.1 - 12.3 fL [facility] Comment:Testing performed by : [place] [address] RBC 4.37 3.90 - 5.20 M/cumm [facility] Comment:Testing performed by : [place] [address] MCV 91.8 81.3 - 96.4 fL [facility] Comment:Testing performed by : [place] [address] MCH 30.7 27.1 - 33.3 pg [facility] Comment:Testing performed by : [place] [address] MCHC 33.4 32.3 - 35.7 g/dL [facility] Comment:Testing performed by : [place] [address] RDW CV 14.2 11.1 - 14.9 % [facility] Comment:Testing performed by : [place] [address] [place] [address] RDW SD 47.8 35.7 - 48.1 fL [facility] Comment:Testing performed by : [place] [address] [place] [address] NRBC abs 0.00 0.00 - 0.01 K/cumm [facility] Comment:Testing performed by : [facility] [address], [place] [address] Blood 04/23/2024 10:0 0 AM DRYING TUMBLER OPERATOR 04/23/2024 10:01 AM DRYING TUMBLER OPERATOR Lorin Barrientos MD LAB BLOOD ORDERABLES F inal Result Performing Organization Address [facility] Co de Phone Number RAM[facility]O [address] Department [place] [address] * (ABNORMAL) CEA (04/23/2024 10:00 AM DRYING TUMBLER OPERATOR) Pathologist [facility] CEA 10.3(H) <=5.0 ng/mL Comment: Interpretive Data Reference Range: Non-Smokers: < or = 3.0 ng/mL Some Smokers may have elevated levels, usually < 5.0 ng/mL The Genoveva CEA assay procedure was used. Results from different manufacturers or methods may not be comparable. Serial testing should be performed using the same method. Testing performed by: [facility], [facility] [facility], [place]., [address] Blood 04/23/2024 10:0 0 AM DRYING TUMBLER OPERATOR 04/23/2024 2:12 PM DRYING TUMBLER OPERATOR Lorin Barrientos MD LAB BLOOD ORDERABLES F inal Result Performing Organization Address [facility] Co de Phone Number [facility] [address] Department [place] [address] * Comprehensive metabolic panel (04/23/2024 10:00 AM DRYING TUMBLER OPERATOR) Sodium 140 135 - 145 mmol/L Potassium, pl 3.8 3.3 - 4.9 mmol/L [facility] Chloride 107 97 - 110 mmol/L [facility] CO2 24 22 - 32 mmol/L [facility] Anion gap 9 2 - 15 mmol/L [facility] BUN 8 6 - 25 mg/dL [facility] Creatinine 0.76 0.60 - 1.10 mg/dL [facility] Glucose 122 70 - 199 mg/dL [facility] Comment: Interpretive Data Fasting glucose >/= [...] classification and Diagnosis of Diabetes Diabetes Care 2021; 46: S19-S40. Current interpretive data was last revised 2022. Calcium 9.0 8.5 - 10.3 mg/dL [facility] Bilirubin, total <0.1 0.1 - 1.2 mg/dL [facility] Protein, pl 7.0 6.5 - 8.5 g/dL [facility] Albumin 4.2 3.5 - 5.0 g/dL [facility] Alk phos 60 40 - 130 Units/L [facility] ALT 23 7 - 45 Units/L [facility] AST 20 10 - 45 Units/L [facility] Blood 04/23/2024 10:0 0 AM DRYING TUMBLER OPERATOR 04/23/2024 10:09 AM DRYING TUMBLER OPERATOR Lorin Barrientos MD LAB BLOOD ORDERABLES E dited Result - Final Performing Organization Address City/State/[facility] Co de Phone Number [facility] [address] [facility] [place] [address] * US Axillary Breast Right (04/23/2024 9:18 AM DRYING TUMBLER OPERATOR) Anatomical Region Laterality Modality Upper Extremities Right Ultrasound 04/23/2024 10:5 6 AM DRYING TUMBLER OPERATOR Impressions 04/23/2024 10:56 AM DRYING TUMBLER OPERATOR Redemonstrated is a 2 cm right axillary [...] Arlin Johnson M.D. Narrative 04/23/2024 10:56 AM DRYING TUMBLER OPERATOR EXAMINATION: RIGHT AXILLARY ULTRASOUND HISTORY: Short interval [...] Female Attending MD: Jayson Watters M.D. Room: [facility] 05 Note Status: Finalized [...] The scope was passed under direct vision.The [id number] was introduced through the anusand advanced to the ileocolonic anastomosis. The colonoscopy was performed without difficulty. The patient tolerated the procedure well. The qualityof the bowel preparation was evaluated using the BBPS (Glidden Bowel Preparation Scale) with scores of:Right Colon [...] following this procedure please call my officeat [phone] to speak to my nurses. After hours and evenings please call [phone] andspeak to the GI fellow education faculty member. Please tell them that Dr. aWtters did your procedure and that your wereinstructed to have the fellow call me or the physiciancovering for me to discuss the management of your condition.If you have an urgent problem, [facility] and have the ER doctor call myoffice during the day or the GI Fellow after hours and weekends to arrange admission or transfer to our facility. - Call my nurse Teagan Schultz RN in the GI office at [phone] for your final pathology results in 7 [...] A1C, POC 5.3 4.0 - 5.6 % [facility] ORTIZ Est Average Gluc POC 105 mg/dL [facility] Comment: The ADA recommends reporting an estimated Average Glucose (eAG) with all Hemoglobin A1c results using the equation derived from a study of 507 normal and diabetic adults. ??Minority populations were underrepresented and children were not included. ?? (Diabetes Care 31:0073-0964, 2008). ??The eAG is not equivalent to a fasting glucose. Blood 02/03/2023 12:4 9 PM CDT 02/03/2023 12:49 PM CDT Notinfile Unknown POINT OF CARE TEST ORDERABLES Final Result [facility] Department [place] [address] * ThinPrep Imaging Pap Reflex HPV mRNA E6/E7 (02/18/2017 9:52 AM CDT) Report status CANCELED [facility] Comment:Result canceled by t he ancillary Clinical information [facility] [place] Comment:Result canceled by t he ancillary HPV interp [facility] Comment:Negative for intraep ithelial lesion or malignancy. Infection: [facility] Comment: Fungal organisms morphologically consistent with Verito spp. COMMENTS [facility] Comment: This Pap test has been evaluated with computer assisted technology. Senior Commercial Loan Officer [facility] [place] Comment: LMT, CT(ASCP) CT screening location: [place] [address] [place] [address] Review red hat open stack administrator [facility] Comment:Result canceled by t he ancillary Pathologist [facility] Comment:Result canceled by t he ancillary 02/18/2017 9:52 AM CDT 02/21/2017 9:57 AM CDT Narrative Resulting Agency Comment Performing Organization Information: ?Site ID: ?[facility] ?Address: [facility] [address] [place] [address] ?Director: Tanvir Guerra MD us Huma Haile MD LAB PATHOLOGY ORDER LOBO Final Result [facility] [place], [place] from Last 3 Months or Most Recently Relevant to Health Maintenance Insurance [employer] [place] [facility] Advance Directives For more information, please contact: [phone] * Full Code (Latest Code Status on File) Date Activated Date Inactivated Comments 11/11/2023 10:33 AM 11/11/2023 4:52 PM * Full Code Date Activated Date Inactivated Comments 02/10/2023 3:29 PM 02/11/2023 3:49 PM * Full Code Date Activated Date Inactivated Comments 04/16/2022 2:30 PM 04/19/2022 11:02 PM Care Teams Combat Engineer Relationship Specialty Start Date End Date Booker Brown MD PCP - General 09/10/15 Leah Tijerina MD [address] [facility] [phone] [place] [address] Surgeon Colon and Rectal Surgery 04/19/22 Lorin Barrientos MD [address] [facility] [place] [address] Medical Oncologist Medical Oncology 05/12/22
--- OUTSIDE RECORDS SUMMARY | 2024-06-13 12:28 | XMS_ITS ---
Author Organization [facility] [address] Address [address] [employer] [place] [address] Phone Care Team Providers Care Glass Mechanic Name Role Phone Booker Brown MD Primary Care Provider Leah Tijerina MD Unavailable Lorin Barrientos MD Unavailable Active Problems Problem Noted Date Diagnosed Date [...] (03/30/2022): Added automatically from request for surgery [id number] Assessment & Plan (02/11/2023 9:07 AM CDT): Follows with Dr. Barrientos of medical oncology. 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 She is now s/p [...] Unilateral partial vocal fold paralysis 12/31/19 17 Current Oncology Plans IV MAINTENANCE THERAPY PLAN* Plan Start Date:09/08/2022 Plan Provider:Lorin Barrientos MD Linked Problems Malignant neoplasm of hepati c flexure (CMS/HCC) (HCC) Treatment Medications No medications scheduled. Past Plans Oncology Chemotherapy Treatment Plan Name Start Date Discontinue Date Treatment Medications Discontinue Reason Plan Provider Cycles [id number]: (Fluorouracil / Leucovorin / Oxaliplatin) 14 Day Cycles - GI 3 12/21/2022 fluorouracil (ADRUCIL)fluorou racil (ADRUCIL) infusion - for home infusion (ADRUCIL)leucovo rinleucovorin IVPB in 250 mLoxaliplatin (ELOXATIN)oxalip latin (ELOXATIN) IVPB Therapy Complete Lorin Barrientos MD 10 of 10 cycles started XELOX: (Capecitabine / OXALIplatin) 21 Day Cycles - Colon/Rectal 06/24/2022 07/22/2022 capecitabine (XELODA)oxalipla tin (ELOXATIN)oxalip latin (ELOXATIN) IVPB Toxicity/Compl ication Lorin Barrientos MD 2 of 6 cycles started Radiation Treatments * No radiation treatments are documented for this patient in [facility]. Treatments may have been administered in another system. Lifetime Dose Tracking * Chemical Lifetime Dose Automatic Entry Manual Entr y Fluoro Time 0.1 minutes 0.1 minutes 0 minutes Air kerma at the reference point (Ka,r) 1.54 mGy 1 .54 mGy 0 mGy Treatment Summaries Malignant neoplasm of hepatic flexure (CMS/HCC) (HCC)* Images from the original note were not included. [address] [address] This Survivorship Care Plan is a cancer treatment summary and follow-up plan and is provided to youto keep with your health care records and to share with your primary care provider or any of your doctors and nurses. This summary is a brief record of major aspects of your cancer treatment not a detailed or comprehensive record of your care. You should review this with your cancer provider. Treatment Summary and Survivorship Care Plan for Colorectal Cancer General Information Patient name Marissa Salcedo (home) Date of 1970 Health Care Providers (Including Names, Institutions) Provider Name: Contact Information: Primary Care Physician Booker Brown MD [phone] Surgeon Leah Tijerina MD Radiation Oncologist No care steam cleaner to display Medical Oncologist Lorin Barrientos MD Obstetrics/Gynecology Nurse No care steam cleaner to display Other Providers Treatment Summary Cancer Diagnosis Information Diagnosis Malignant neoplasm of hepatic flexure (CMS/HCC) (HCC) Diagnosis date 03/30/2022 Staging information Cancer Staging No matching staging information was found for the patient. Predisposing Conditions None Family History of Colon, Rectal or Anal Cancer Colon, Rectal, or Anal Cancer- related family historyis not on file. Received Genetic counseling No Genetic Testing No Pre-op Colonoscopy Yes Completion to cecum Yes Other Lesions on Pre-Op Colonoscopy Low risk polyps Treatment Completed Surgery Surgery date 04/16/2022 Surgical procedure / location / findings LAPAROSCOPIC CHOLECYSTECTOMY RESECTION EXTENDED RIGHT COLON - LAPAROSCOPIC Radiation No Permanent [place] No Systemic Therapy (chemotherapy, hormonal therapy, other) [No matching plan found] Lifetime Dose Tracking Lifetime Dose Tracking No doses have been documented on this patient for the following tracked chemicals: doxorubicin, epirubicin, idarubicin, daunorubicin, mitoxantrone, bleomycin, mitomycin, cyclophosphamide, carmustine,cisplatin, ifosfamide, carboplatin, fluorouracil, etoposide, doxorubicin HCl pegylated liposomal, et oposide phosphate, valrubicin, doxorubicin isotoxic equivalent Research Studies Persistent symptoms or side effects that have continued after finishing treatment: None Treatment Ongoing: No Follow-up Care Plan Your follow-up care plan is design to inform you and primary care providers regarding the recommended and required follow-up, cancer screening and routine health maintenance that is needed to maintain optimal health. Schedule of Clinical Visits Coordinating Provider When/How often Medical Oncologist: Lorin Barrientos MD (Patients may alternate with Medical oncology and Surgeon if both are [facility]) History and Physical every 3 months for 2 years then, every 6 months for following 3 years Booker Brown After 5 years of treatment completion - yearly exam Cancer Surveillance or other Recommended Tests Coordinating Provider Test How Often Colon Surgeon: Leah Tijerina MD Colonoscopy 1 year after surgery Medical Oncologist: Lorin Barrientos MD CEA blood test Every 3 months for 2 years then every 6 months for following 3 years. Medical Oncologist: Lorin Barrientos MD Chest/Abdominal/pelvic CT (high risk patients) Yearly up to 5 years Possible late- and long-term effects that someone with this type of cancer and treatment may experience: Bowel problems (urgency, incontinence, change in consistency) Numbness/tingling Fatigue Memory/concentration difficulty Patients receiving radiation therapy for rectal cancer may also experience: Pelvic insufficiency fractures Urinary problems - urinary incontinence Sexual dysfunction - erectile dysfunction, ejaculatory problems, menopause, vaginal dryness, painful intercourse Please continue to see your primary care provider for all general health care recommended for a patient your age, including cancer screening tests, except for colon cancer. Any symptoms should be brought to the attention of your provider: Anything that represents a brand new symptom; Anything that represents a persistent symptom; Anything you are worried about that might be related to the cancer coming back. Cancer survivors may experience issues with the areas listed below. If you have any concerns in these or other areas, please speak with your doctors or nurses to find out how you can get help with them. Anxiety and depression Emotional and mental health Fatigue Fertility Financial advice or assistance Insurance Memory or concentration loss Parenting Physical functioning School/work Sexual functioning Stopping smoking Weight changes Other A number of lifestyle/behaviors can affect your ongoing health, including the risk for the cancer coming back or developing another cancer. Discuss these recommendations with your doctor or nurse: Colon and Rectal cancer require lifelong surveillance. It is essential that you follow your doctors??? recommendations for follow up appointments and tests. Eat a healthy diet: focus on lean meats and proteins, more fruits, vegetables and whole grains and low in sugars and fats. Limit red meat and avoid processed meat. Maintain a healthy weight; avoid being overweight. Aim for a normal body mass index (BMI) of 18.5-24.9. Help learning to eat healthier, call the substance abuse clinician at: [facility] . Have an active lifestyle, strive for 30 minutes of moderate exercise 5 times a week and strength orresistance training at least twice a week. Use broad-spectrum (UVA+UVB) sunscreen with SPF 30 or greater, is water resistant, limit time spentin the sun (10 am-4pm), wear hat, wear UV protective clothing, wear sunglasses. Never use a tanningbed. Skin that was irradiated may be more sensitive over your lifetime. Do not smoke or chew tobacco; participate in a smoking cessation program. Limit alcohol intake, 1 drink per day for a woman and 2 drinks per day for a man. Family members may be at risk for colorectal cancer, please advise your family members to discuss with their primary care physician their risk and screening needs. Family members may be at risk for colorectal cancer, please advise your family members to discuss with their primary care physician their risk and screening needs. Discuss your need for daily aspirin and other healthy life style measures with your primary care physician. Resources you may be interested in: [facility] [place] A National Cancer [facility] http://www.[facility]/ [facility] Information Center 1st floor of [facility] Medicine [phone]. Computer access, educational material, counseling services (FREE) United Ostomy Association: the place for ostomy resources, advocacy, and support. www.ostomy.org The ostomy nurse at [facility] can be reached at [phone] Online Resources: www.cancer.net; http://www.cdc.gov/cancer/survivorship; http://www.cancercare.org/tagged/post-treatment_survivorship; http://www.cancer.gov/about-cancer/coping/survivorship [employer]: https://survivorship.cancer.gov/ an online tool for cancer survivors andcaregivers created by the [employer] and the National Cancer [place]. It provides: Information on dealing with side effects from cancer and treatment Caregivers with support and resources Practical advice about talking to friends and family about cancer Questions to ask their health care team Help understanding their rights in the workplace Resolved Problems Problem Noted Date Diagnosed Date Resolved Date Malignant neoplasm of colon 09/09/2022 07/11/2023 Colon cancer (CMS/HCC) 04/16/202205/12 Biliary colic 03/30/2022 04/19/2022 Overview (04/07/2022): Added automatically from request for surgery [id number]
--- OUTSIDE RECORDS SUMMARY | 2024-06-13 12:28 | XMS_ITS | Encounter Summary ---
Author Organization [facility] Address [address] [place] [address] Phone Care Team Providers Care Club Waiter/Waitress Name Role Phone Booker Brown MD Primary Care Provider + [phone] Leah Tijerina MD Unavailable [phone] Lorin Barrientos MD Unavailable + [phone] Encounter Details Date Type Department Care Team (Late st Contact Info) Description 2023 Orders Only [facility] [address] [facility] Advanced Medicine 12th [place] [address] [place] [address] Charlotte Oh RN Social History Tobacco Use Types Packs/Day Years Used Date Smoking Tobacco: Every Day Cigarettes 1.5 37 Smokeless Tobacco: Never Comments:Smoking History Pac ks/day: 2 Packs Alcohol Use Standard Drinks/Week Comments No 0 (1 standard drink = 0.6 oz pur e alcohol) AUDIT-C Answer Date Recorded Q1: How often do you have a drink containing alcohol? Never 02/03/2023 Q2: How many drinks containi ng alcohol do you have on a typical day when you are drinking? Patient does not drink Q3: How often do you have si x or more drinks on one occasion? Never 02/03/2023 Personal Safety Answer Date Recorded Have you ever been in or are you currently in a harmful physical or emotional relationship or is someone making you feel afraid or unsafe? 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 Not on file Not on file Not on file documented as of this encounter Plan of Treatment Not on file documented as of this encounter Visit Diagnoses Not on filedocumented in this encounter Additional Health Concerns Infection Onset Date Last Indicated Resolved Time COVID: Suspected 08/24/2023 08/24/2023 08/24/2023 3:57 PM CDT documented as of this encounter Care Teams Club Waiter/Waitress Relationship Specialty Start Date End Date Booker Brown MD PCP - General 09/10/15 Leah Tijerina MD [phone] [place] [address] Surgeon Colon and Rectal Surgery 04/19/22 Lorin Barrientos MD [address] [place] [address] Medical Oncologist Medical Oncology 05/12/22 documented as of this encounter
--- OUTSIDE RECORDS SUMMARY | 2024-06-13 12:29 | XMS_ITS | Continuity of Care Document ---
Author Organization [facility] Address [address] [place] [address] Phone Care Team Providers Care Environmental Health And Safety Manager Name Role Phone Libia BELTRAN, Faviola Unavailable Unavailabl e Allergies, Adverse Reactions, Alerts Substance Reaction Status Criticality Penicillins Abdominal pain Active No Informatio n Medications Medication Instructions Dosage Effective Dates (start - stop) Status Comments tamoxifen 20 mg tablet take 1 tablet by oral route every day 20 MG - Active Kapspargo Sprinkle 25 mg capsule,extended release take 1 capsule by oral route every day 25 MG - Active Problems Condition Type Effective Dates (start - stop) Clini mendez Status Comments No Known Problems Procedures Procedure Date OFFICE/OUTPATIENT VISIT, EST BMI Documented Diastolic BP Less Than 80mm Hg Medication List Documented In Med Rec Se Review Of Meds By RX/DR in Record Systolic BP >/= 140 MM HG BX/CURETT OF CERVIX W/SCOPE OFFICE/OUTPATIENT VISIT, EST BMI Documented Diastolic BP >/= 90 MM HG Medication List Documented In Med Rec Se Review Of Meds By RX/DR in Record Systolic BP 130-139mm Hg OFFICE/OUTPATIENT VISIT, EST Medication List Documented In Med Rec Ju Review Of Meds By RX/DR in Record Pap pack SPECIMEN HANDLING OFFICE/OUTPATIENT VISIT, NEW BMI Documented Diastolic BP 80-89mm Hg Medication List Documented In Med Rec Ju Review Of Meds By RX/DR in Record Systolic BP Less Than 130mm Hg Advance Directives Directive Yes / No Effective Date File Name No Information Encounters Encounter Description Practice Location Reason(s) For Visit Diagnoses Date Provider Providers Copied on Encounter OFFICE/OUTPAT IENT VISIT, EST [facility] [employer] [facility], [address], [place], [id number], [place] tel:[phone] [facility] of Abnormal pap smear (chief complaint) ASCUS of cervix with negative high risk HPVBody mass index [BMI] 34.0-34.9, adult Sep- 3 Sarafzapatrizia Ottin. [address] [place] [address], [id number] [address] [place] [address], [id number], [place]. tel:[phone] OFF[facility]PAT [facility]IT[facility], [address], [place], [id number], [place] tel:[phone] [facility] Follow Up of Abnormal pap smear (chief complaint) ASCUS of cervix with negative high risk HPVBody mass index [BMI] 35.0-35.9, adult Sep-0 3 Sarafzadeh Faviola. [address] [place] [address], [id number] [place], [id number], [place]. tel:[phone] [facility], [address], [place], [id number], [place] tel:[phone] [facility] Follow Up of Abnormal pap smear (chief complaint) No Information 3 Sarafzadeh Faviola. [address] [place] [address], [id number] [place], [id number], [place]. tel:[phone] OFFICE/OUTPAT IENT VISIT, [facility] [employer] [facility], [address], [place], [place], [id number], tel:[phone] [facility] Follow Up of Abnormal pap smear (chief complaint) ASCUS of cervix with negative high risk HPV 3 Libia Salmeron. [address] [place] [address], [id number] [place], [id number], [place]. tel:[phone] OFFICE/OUTPAT IENT VISIT, [facility] [employer] [facility], [address], [place], [id number], tel:[phone] [facility] annual exam (chief complaint) Encounter for gynecological examination (general) (routine) without abnormal findingsBody mass index [BMI] 36.0-36.9, adult 3 Libia Salmeron. [address] [place] [address], [id number] [place], [id number], . tel:[phone] Family History Family Member Type Diagnosis Age At Onset No Information Payers Payer name Insurance type Covered constitution party ID Conner simskunal(s) [facility] [id number] [facility] Code 18 [id number] Social History Type Description Quantity Date Captured Comments Alcohol Use Details No Caffeine Use Details coffee 2 cups per day Tobacco Use Status Current non-smoker Smoking Status Never smoker Non-Smoking Tobacco Use Details : No Details Available : No Details Available Sex Female Vital Signs Date / Time: Height Weight BMI Pulse Rate Blood Pressure Temperature Respiratory Rate Body Surface Area Head Circumference BMI percentile Pulse Ox Inhaled Ox 11:28 AM 64.00 in 203.00 lbs 34.8 4 kg/m eter (2) 100 /min 142/78 mm[Hg] 98.5 F 16 /min 2.04 meter(2) 21 Chief Complaint And Reason For Visit From encounter dated '01/27/2023 11:45'. Follow Up of Abnormal pap smear (chief complaint). Description: Status: no change. Additional information: here for results. Plan Of Treatment Date Type Action Status Referral Ordered: Pathology (tissue specimen) ordered History Of Present Illness Encounter Date Complaint History Of Prese nt Illness Follow Up of Abnormal pap smear Status: no change. Additional information: here for results. Follow Up of Abnormal pap smear Status: no change. Additional information: here for colpo. no complaints. Follow Up of Abnormal pap smear Follow Up of Abnormal pap smear Status: no change. Additional information: desires results. annual exam : 2. Arianna ty: Term: 1. : 1. Livin. Last LMP was 09/28/2022. Her menses is regular with normal flow with a frequency of every 28 days. Negative for: breast discharge and breast lump(s). Positive for: breast pain (side: left) and breast self exam. Menopausal symptoms negative for: insomnia and night sweats. Menopausal symptoms positive for: hot flashes and vaginal dryness. Pertinent negatives include abnormal bleeding (hematology), abnormal vaginal bleeding, vaginal discharge and vaginal itching. Diet healthy. The patient does not use tobacco. She has not been exposed to passive smoke. She does not drink alcohol. Instructions Date Instruction Additional Infor mation No Information Assessments Type Assessment Date assessment ASCUS of cervix with negative hi gh risk HPV assessment Body mass index [BMI] 34.0-34.9, adult Mental Status Date Cognitive Assessment Orientation - [place] ed to time, place, person, situation.
--- OUTSIDE RECORDS SUMMARY | 2024-06-13 12:29 | XMS_ITS | Continuity of Care Document ---
Author Organization [facility] Address [address] [place] [address] Phone Care Team Providers Care Radio Aerial Installer Name Role Phone Libia BELTRAN, Faviola Unavailable [...] Copied on Encounter OFFICE/OUTPAT IENT VISIT, EST [facility] [employer], [address], [place], [id number], [place] tel:[phone] [facility] Follow Up of Abnormal pap smear (chief complaint) ASCUS of cervix with negative high risk HPVBody mass index [BMI] 34.0-34.9, adult Sep- 3 Sarafzapatrizia Ottin. [address] [place] [address], [id number] [address] [place] [address], [id number], [place]. tel:[phone] OFFICE/OUTPAT [facility]ENT VISIT[facility], [address], [place], [id number], [place] tel:[phone] [facility] Follow Up of Abnormal pap smear (chief complaint) ASCUS of cervix with negative high risk HPVBody mass index [BMI] 35.0-35.9, adult Sep-0 3 Sarafzadeh Faviola. [address] [place] [address], [id number] [place], [id number], [place]. tel:[phone] [facility] [employer] [facility], [address], [place], [id number], [place] tel:[phone] [facility] Follow Up of Abnormal pap smear (chief complaint) No Information 3 Sarafzadeh Faviola. [address] [place] [address], [id number] [address], [id number], [place]. tel:[phone] OFFICE/OUTPAT IENT VISIT, [facility] [employer], [address], [place], [place], [id number], tel:[phone] [facility] Follow Up of Abnormal pap smear (chief complaint) ASCUS of cervix with negative high risk HPV 3 Libia Salmeron. [address] [place] [address], [id number] [place], [id number], [place]. tel:[phone] OFFICE/OUTPAT IENT VISIT, [facility] [employer], [address], [place], [id number], tel:[phone] [facility] annual exam (chief complaint) Encounter for gynecological examination (general) (routine) without abnormal findingsBody mass index [BMI] 36.0-36.9, adult 3 Libia Salmeron. [address] [place] [address], [id number] [address], [id number], . tel:[phone] Family History Family Member Type Diagnosis Age At Onset No Information Payers Payer name Insurance type Covered libertarian ID Conner simskunal(s) [facility] [id number] [facility] Code 18 [id number] Social History Type Description Quantity Date Captured [...] Mental Status Date Cognitive Assessment Orientation - [place] ed to time, place, person, situation.
--- OUTSIDE RECORDS SUMMARY | 2024-06-13 12:29 | XMS_ITS | Encounter Summary ---
Author Organization [facility] Address [address] [place] [address] Care Team Providers Care Retail Clerk Name Role Phone Booker Brown MD Primary Care Provider + [phone] Leah Tijerina MD Unavailable [phone] Lorin Barrientos MD Unavailable + [phone] Encounter Details Date Type Department Care Team (Late st Contact Info) Description 12/15/2022 Telephone [address] [place] [address] Galilea [place], [place] Social History Tobacco Use Types Packs/Day Years Used Date Smoking Tobacco: Every Day Cigarettes 1.3 30 Smokeless Tobacco: Never Comments:Smoking History Pac ks/day: 2 Packs Alcohol Use Standard Drinks/Week Comments No 0 (1 standard drink = 0.6 oz pur e alcohol) AUDIT-C Answer Date Recorded Q1: How often do you have a drink containing alcohol? Never 06/21/2022 Q2: How many drinks containi ng alcohol do you have on a typical day when you are drinking? Patient does not drink Q3: How often do you have si x or more drinks on one occasion? 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
== END 2024-06-13 12:50 | disposition home or self-care (01) ==
PROVIDERS: Emergency Provider Registered Nurse; PCP Family Medicine
DX: J40 Bronchitis, not specified as acute or chronic (principal); J01.40 Acute pansinusitis, unspecified; F17.210 Nicotine dependence, cigarettes, uncomplicated; I10 Essential (primary) hypertension; E78.5 Hyperlipidemia, unspecified; E11.9 Type 2 diabetes mellitus without complications; Z79.84 Long term (current) use of oral hypoglycemic drugs; F41.9 Anxiety disorder, unspecified; K21.00 Gastro-esophageal reflux disease with esophagitis, without bleeding; F32.9 Major depressive disorder, single episode, unspecified
CPT/HCPCS: 99213; G0463

== ENCOUNTER 2024-07-05 08:56 | Outpatient (CLI) | payer OTHER, SELFPAY ==
--- NOTE | ~2024-07-05 | XR_ITS ---
Clinical Indication: Cough PA and lateral views of the chest: Comparison: 08/06/2021 Findings: Right-sided Mediport in place. The lungs are clear, without evidence of focal consolidation or pleural effusion. Cardiomediastinal silhouette is within normal limits. Bones and soft tissues a re unremarkable. Impression: Clear lungs. Right-sided Mediport. Reviewed, dictated and finalized at location M. CE SPEC Impression: Clear lungs. Right-sided Mediport.
--- OUTSIDE RECORDS SUMMARY | 2024-07-05 09:07 | XMS_ITS | Referral Summary ---
Author Organization [facility] [address] [employer] [address] Address [address] [place] [address] Phone Care Team Providers Care Production Lapping Machine Operator Name Role Phone Booker Brown MD Primary Care Provider [phone] Leah Tijerina MD Unavailable [phone] Lorin Barrientos MD Unavailable [phone] Encounters Date Type Department Care Team Description 04/23/2024 10:15 AM FINE JEWELRY SALES ASSOCIATE Clinical Support [facility] [address] [place] [address] Malignant neoplasm of hepatic flexure (CMS/HCC) (HCC) 04/23/2024 9:05 AM FINE JEWELRY SALES ASSOCIATE - 04/23/2024 11:59 PM FINE JEWELRY SALES ASSOCIATE Hospital Encounter [facility] [address] [place], [place] [id number] Malignant neoplasm of hepatic flexure (CMS/HCC) (HCC); Malignant neoplasm of kidney, unspecified laterality (HCC) Discharge Disposition: Discharge to home or self care 04/23/2024 11:00 AM FINE JEWELRY SALES ASSOCIATE Office Visit [facility] [address] [place] [address] Lorin Barrientos MD Malignant neoplasm of hepatic flexure (CMS/HCC) (HCC) (Primary Dx); Diarrhea, unspecified type; Abnormal screening mammogram 04/23/2024 3:52 PM FINE JEWELRY SALES ASSOCIATE - 04/23/2024 11:59 PM FINE JEWELRY SALES ASSOCIATE Hospital Encounter [facility] [address] [place] [address] Malignant neoplasm of hepatic flexure (CMS/HCC) (HCC) [...] (03/30/2022): Added automatically from request for surgery [id number] Assessment & Plan (02/11/2023 9:07 AM CDT): Follows with Dr. Barrientos of medical oncology. 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 Not on file Not on file Not on file Last Filed Vital Signs Vital Sign Reading Time Taken Comments Blood Pressure 122/78 04/23/2024 10:50 AM FINE JEWELRY SALES ASSOCIATE Pulse 79 04/23/2024 10:50 AM FINE JEWELRY SALES ASSOCIATE Temperature 36.7 C (98.1 F) 04/23/2024 10:50 AM FINE JEWELRY SALES ASSOCIATE Respiratory Rate 18 04/23/2024 10:5 0 AM FINE JEWELRY SALES ASSOCIATE Oxygen Saturation 97% 04/23/2024 10: 50 AM FINE JEWELRY SALES ASSOCIATE Inhaled Oxygen Concentration - - Weight 97.4 kg (214 lb 12.8 oz) 024 10:50 AM FINE JEWELRY SALES ASSOCIATE Height 172.7 cm (5' 8 ) 11/11/2023 10:5 7 AM CDT Body Mass Index 32.66 11/11/2023 10:57 AM CDT Plan of Treatment Not on file Medical Devices Implanted Type Area Promotions Firm Accounts Manager Device Identifier Shelf Expiration Date Model / Serial / Lot [employer] Powerport Clearvue Airguard 6fr 1 Lumen Lightweight Latex Free [id number] - [id number] Implanted:Qty: 1 on 06/21/2022 at [facility] [employer] 08/14/2023 [id number] / / [id number] Procedures Procedure Name Priority Date/Time Associated Diagnosis Comments EGFR Routine 04/23/2024 10:00 AM FINE JEWELRY SALES ASSOCIATE Malignant neoplasm of hepatic flexure (CMS/HCC) (HCC) DIFFERENTIAL AUTO Routine 04/23/2024 10: 00 AM FINE JEWELRY SALES ASSOCIATE Malignant neoplasm of hepatic flexure (CMS/HCC) (HCC) CBC WITH AUTO DIFFERENTIAL Routine 04/23/2024 10:00 AM FINE JEWELRY SALES ASSOCIATE Malignant neoplasm of hepatic flexure (CMS/HCC) (HCC) COMPREHENSIVE METABOLIC PANEL Routine 04/23/2024 10:00 AM FINE JEWELRY SALES ASSOCIATE Malignant neoplasm of hepatic flexure (CMS/HCC) (HCC) CEA Routine 04/23/2024 10:00 AM FINE JEWELRY SALES ASSOCIATE Malignant neoplasm of hepatic flexure (CMS/HCC) (HCC) US AXILLARY RIGHT Schedule Routine, Read Routine (OP Routine) 04/23/2024 9:18 AM FINE JEWELRY SALES ASSOCIATE Malignant neoplasm of hepatic flexure (CMS/HCC) (HCC) [...] Maintenance Results * eGFR (04/23/2024 10:00 AM FINE JEWELRY SALES ASSOCIATE) eGFR >90 >=60 mL/min/1. 73 m2 Comment: Interpretive Data Reference Interval Normal >/= 90 mL/min/1.73m2 Mildly decreased* 60 - 89 mL/min/1.73m2 Mildly to moderately decreased 45 - 59 mL/min/1.73m2 Moderately to severely decreased 30 - 44 mL/min/1.73m2 Severely decreased 15 - 29 mL/min/1.73m2 Kidney Failure < 15 mL/min/1.73m2 *Relative to young adult level Estimated glomerular [...] reviewed 2021. Blood 04/23/2024 10:0 0 AM FINE JEWELRY SALES ASSOCIATE 04/23/2024 10:09 AM FINE JEWELRY SALES ASSOCIATE us Lorin Barrientos MD LAB BLOOD ORDERABLES F inal Result [facility] [address] [facility] Department [place] [address] * Differential, auto (04/23/2024 10:00 AM FINE JEWELRY SALES ASSOCIATE) Neutrophil abs 5.1 1.5 - 6.5 K/cumm Comment:Testing performed by : [facility],[address], [place] [address] Lymphocyte abs 2.6 0.8 - 3.3 K/cumm [facility] Comment:Testing performed by : [facility],[address], [place] [address] Monocyte abs 0.4 0.2 - 0.8 K/cumm [facility] Comment:Testing performed by : [facility] [address], [place] [address] Eosinophil abs 0.3 0.0 - 0.5 K/cumm [facility] Comment:Testing performed by : [facility],[address], [place] [address] Basophil abs 0.1 0.0 - 0.1 K/cumm [facility] Comment:Testing performed by : [facility],[address], [place] [address] Neutrophil pct 59.7 % [facility] Comment: Interpretive Data Percent cell count reference ranges are not reported, since discordance with absolute values may lead to misinterpretation of CBC data. Current Interpretive Data was last revised on 2017. Testing performed by: [facility] [address], [place] [address] Imm gran pct 0.4 % [facility] Comment: Interpretive Data Percent cell count reference ranges are not reported, since discordance with absolute values may lead to misinterpretation of CBC data. Current Interpretive Data was last revised on 2017. Testing performed by: [facility],[address], [place] [address] Lymphocyte pct 30.9 % [facility] Comment: Interpretive Data Percent cell count reference ranges are not reported, since discordance with absolute values may lead to misinterpretation of CBC data. Current Interpretive Data was last revised on 2017. Testing performed by: [facility],[address] [place] [address] Way, [place] [address] Monocyte pct 4.3 % [facility] Comment: Interpretive Data Percent cell count reference ranges are not reported, since discordance with absolute values may lead to misinterpretation of CBC data. Current Interpretive Data was last revised on 2017. Testing performed by: [facility],[address] [place] [address] Eosinophil pct 3.4 % [facility] Comment: Interpretive Data Percent cell count reference ranges are not reported, since discordance with absolute values may lead to misinterpretation of CBC data. Current Interpretive Data was last revised on 2017. Testing performed by: [facility],[address] [place] [address] Way, [place] [address] Basophil pct 1.3 % [facility] Comment: Interpretive Data Percent cell count reference ranges are not reported, since discordance with absolute values may lead to misinterpretation of CBC data. Current Interpretive Data was last revised on 2017. Testing performed by: [address], [place] [address] Blood 04/23/2024 10:0 0 AM FINE JEWELRY SALES ASSOCIATE 04/23/2024 10:01 AM FINE JEWELRY SALES ASSOCIATE us Lorin Barrientos MD LAB BLOOD ORDERABLES F inal Result [facility] 10 [facility] Department [place] [address] * (ABNORMAL) CBC with auto differential (04/23/2024 10:00 AM FINE JEWELRY SALES ASSOCIATE) WBC 8.6 3.8 - 9.9 K/cumm Comment:Testing performed by : [facility] [address], [place] [address] Hgb 13.4 11.9 - 15.5 g/dL [facility] Comment:Testing performed by : [address] [place] [address] Hct 40.1 35.6 - 45.5 % [facility] Comment:Testing performed by : [place] [address] Plt 190 150 - 400 K/cumm [facility] Comment:Testing performed by : [place] [address] MPV 8.5(L) 9.1 - 12.3 fL [facility] SP Comment:Testing performed by : [place] [address] RBC 4.37 3.90 - 5.20 M/cumm [facility] Comment:Testing performed by : [place] [address] MCV 91.8 81.3 - 96.4 fL [facility] Comment:Testing performed by : [place] [address] MCH 30.7 27.1 - 33.3 pg [facility] SP Comment:Testing performed by : [place] [address] MCHC 33.4 32.3 - 35.7 g/dL [facility] Comment:Testing performed by : [place] [address] RDW CV 14.2 11.1 - 14.9 % [facility] Comment:Testing performed by : [place] [address] RDW SD 47.8 35.7 - 48.1 fL [facility] Comment:Testing performed by : [place] [address] NRBC abs 0.00 0.00 - 0.01 K/cumm [facility] Comment:Testing performed by : [place] [address] Blood 04/23/2024 10:0 0 AM FINE JEWELRY SALES ASSOCIATE 04/23/2024 10:01 AM FINE JEWELRY SALES ASSOCIATE us Lorin Barrientos MD LAB BLOOD ORDERABLES F inal Result Performing Organization Address [facility] Co de Phone Number [address] Department [place] [address] * (ABNORMAL) CEA (04/23/2024 10:00 AM FINE JEWELRY SALES ASSOCIATE) [facility] CEA 10.3(H) <=5.0 ng/mL Comment: Interpretive Data Reference Range: Non-Smokers: < or = 3.0 ng/mL Some Smokers may have elevated levels, usually < 5.0 ng/mL The Genoveva CEA assay procedure was used. Results from different manufacturers or methods may not be comparable. Serial testing should be performed using the same method. Testing performed by: [facility], [address] [place] [address], [place]., [address] Blood 04/23/2024 10:0 0 AM FINE JEWELRY SALES ASSOCIATE 04/23/2024 2:12 PM FINE JEWELRY SALES ASSOCIATE Lorin Barrientos MD LAB BLOOD ORDERABLES F inal Result Performing Organization Address [facility] Co de Phone Number [address] Department [place] [address] * Comprehensive metabolic panel (04/23/2024 10:00 AM FINE JEWELRY SALES ASSOCIATE) [facility] Sodium 140 135 - 145 mmol/L Potassium, pl 3.8 3.3 - 4.9 mmol/L [facility] Chloride 107 97 - 110 mmol/L [facility] CO2 24 22 - 32 mmol/L [facility] Anion gap 9 2 - 15 mmol/L [facility] BUN 8 6 - 25 mg/dL [facility] Creatinine 0.76 0.60 - 1.10 mg/dL [facility] Glucose 122 70 - 199 mg/dL [facility] Comment: Interpretive Data Fasting glucose >/= 126 mg/dl is diagnostic for diabetes. Fasting is defined as no caloric intake [...] 2022. Calcium 9.0 8.5 - 10.3 mg/dL [facility] Bilirubin, total <0.1 0.1 - 1.2 mg/dL [facility] Protein, pl 7.0 6.5 - 8.5 g/dL [facility] Albumin 4.2 3.5 - 5.0 g/dL [facility] Alk phos 60 40 - 130 Units/L [facility] ALT 23 7 - 45 Units/L [facility] AST 20 10 - 45 Units/L [facility] Blood 04/23/2024 10:0 0 AM FINE JEWELRY SALES ASSOCIATE 04/23/2024 10:09 AM FINE JEWELRY SALES ASSOCIATE Lorin Barrientos MD LAB BLOOD ORDERABLES E dited Result - Final [facility] [address] [facility] Department [place] [address] * US Axillary Breast Right (04/23/2024 9:18 AM FINE JEWELRY SALES ASSOCIATE) Anatomical Region Laterality Modality Upper Extremities Right Ultrasound 04/23/2024 10:5 6 AM FINE JEWELRY SALES ASSOCIATE Impressions 04/23/2024 10:56 AM FINE JEWELRY SALES ASSOCIATE Redemonstrated is a 2 cm right axillary [...] Arlin Johnson M.D. Narrative 04/23/2024 10:56 AM FINE JEWELRY SALES ASSOCIATE EXAMINATION: RIGHT AXILLARY ULTRASOUND HISTORY: Short interval follow-up of right axillary lymph node with mild cortical thickening. History of colon cancer. COMPARISON: 10/14/2023 TECHNIQUE: Directed ultrasound evaluation of the RIGHT axilla was performed. ULTRASOUND FINDINGS: There is a 2 x 0.8 cm right axillary lymph node with mild cortical thickening measuring 3.4 mm. It has a fatty hilum. Procedure Note Arlin [...] months Electronically signed by: Arlin Johnson M.D. [facility] Daisy Barrientos MD IM US PROCEDURES Kathy l Result * Colonoscopy (11/11/2023 11:47 AM CDT) Anatomical Region Laterality Modality Other Narrative Procedure Note Jayson Watters MD - 11/11/2023 11:47 AM CDT ENDOSCOPY LAB Patient Name: Marissa Gilman Procedure Date: 11/11/2023 11:47 AM Date of : 1970 Admit Type: Outpatient Age: 53 Gender: Female Attending MD: Jayson Watters M.D. Room: [facility] ENDOSCOPY ROOM 05 Note Status: Finalized [...] The scope was passed under direct vision.The [id number] was introduced through the anusand advanced to the ileocolonic anastomosis. The colonoscopy was performed without difficulty. The patient tolerated the procedure well. The qualityof the bowel preparation was evaluated using the BBPS (Riva Bowel Preparation Scale) with scores of:Right Colon [...] following this procedure please call my officeat [phone] to speak to my nurses. After hours and evenings please call [phone] andspeak to the GI fellow station mechanic. Please tell them that Dr. Watters did your procedure and that your wereinstructed to have the fellow call me or the physiciancovering for me to discuss the management of your condition.If you have an urgent problem, [facility] and have the ER doctor call pepeice during the day or the GI Fellow after hours and weekends to arrange admission or transfer to our facility. - Call my nurse Teagan Schultz RN in the GI office at [phone] for your final pathology results in 7 [...] Evaluation Narrative 09/16/2023 4:01 PM CDT EXAM: Bilateral Digital Screening Mammogram With Tomosynthesis [...] Category 0: Incomplete: Needs Additional Imaging Evaluation us Lorin Barrientos MD IMG MAMMO PROCEDURES F inal Result * POCT hemoglobin A1c (02/03/2023 12:49 PM CDT) Hgb A1C, POC 5.3 4.0 - 5.6 % [facility] Est Average Gluc POC 105 mg/dL [facility] Comment: The ADA recommends reporting an estimated Average Glucose (eAG) with all Hemoglobin A1c results using the equation derived from a study of 507 normal and diabetic adults. Minority populations were underrepresented and children were not included. (Diabetes Care 31:4176-8487, 2008). The eAG is not equivalent to a fasting glucose. Blood 02/03/2023 12:4 9 PM CDT 02/03/2023 12:49 PM CDT us Notinfile Unknown POINT OF CARE TEST ORDERABLES Final Result [facility] [place] [address] * ThinPrep Imaging Pap Reflex HPV mRNA E6/E7 (02/18/2017 9:52 AM CDT) Report status CANCELED [facility] - Comment:Result canceled by t ritika ancillary Clinical information [facility] - Comment:Information not prov ided LMP NONE GIVEN [facility] Previous Pap NONE GIVEN [facility] Prev. Bx NONE [facility]IVEN [facility] Source [facility] Comment:Cervix, Endocervix Pap, specimen adequacy [facility] Comment: Satisfactory for evaluation. Endocervical/transformation zone component present. Age and/or menstrual status not provided Pap, general categorization CANCELED [facility] Comment:Result canceled by t ritika ancillary HPV interp [facility] Comment:Negative for intraep ithelial lesion or malignancy. Infection: [facility] - Comment: Fungal organisms morphologically consistent with Verito spp. COMMENTS [facility] - Comment: This Pap test has been evaluated with computer assisted technology. Latex Caster [facility] - Comment: LMT, CT(ASCP) CT screening location: [place] [address] Administration [place] [address] Review electronics engineering manager CANCELED [facility] - Comment:Result canceled by t ritika ancillary Pathologist CANCELED [facility] - Comment:Result canceled by tania yost ancillary 02/18/2017 9:52 AM CDT 02/21/2017 9:57 AM CDT Narrative Resulting Agency Comment Performing Organization Information: Site ID: [place] Name: [facility] Address: [facility] Administration [place] [address] Director: Tanvir Guerra MD Huma Haile MD LAB PATHOLOGY ORDER LOBO Final Result [facility] [place] from Last 3 Months or Most Recently Relevant to Health Maintenance Insurance [facility] Advance Directives For more information, please contact: [phone] * Full Code (Latest Code Status on File) Date Activated Date Inactivated Comments 11/11/2023 10:33 AM 11/11/2023 4:52 PM * Full Code Date Activated Date Inactivated Comments 02/10/2023 3:29 PM 02/11/2023 3:49 PM * Full Code Date Activated Date Inactivated Comments 04/16/2022 2:30 PM 04/19/2022 11:02 PM Care Teams Production Lapping Machine Operator Relationship Specialty Start Date End Date Booker Brown MD PCP - General 09/10/15 Leah Tijerina MD [address] [facility] [id number] [place] [address] Surgeon Colon and Rectal Surgery 04/19/22 Lorin Barrientos MD [address] [place] [address] Medical Oncologist Medical Oncology 05/12/22
--- OUTSIDE RECORDS SUMMARY | 2024-07-05 09:07 | XMS_ITS | Encounter Summary ---
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
--- OUTSIDE RECORDS SUMMARY | 2024-07-05 09:07 | XMS_ITS | Continuity of Care Document ---
Author Organization [facility] [employer] Address [address] [place] [address] Phone Care Team Providers Care Anesthesiology Tech Name Role Phone Faviola Reza MD Unavailable Unavailabl e Allergies, Adverse Reactions, Alerts [...] Copied on Encounter OFFICE/OUTPAT IENT VISIT, EST [facility] [employer], [address], [place], [id number], [place] tel:[phone] [facility] Follow Up of Abnormal pap smear (chief complaint) ASCUS of cervix with negative high risk HPVBody mass index [BMI] 34.0-34.9, adult Sep- 3 Sarafzapatrizia Ottin. [address] [place] [address], [id number] [address] [place] [address], [id number], [place]. tel:[phone] OFFICE/OUTPAT IENT VISIT, [facility] [employer] [facility], [address], [place], [id number], [place] tel:[phone] [facility] Follow Up of Abnormal pap smear (chief complaint) ASCUS of cervix with negative high risk HPVBody mass index [BMI] 35.0-35.9, adult Sep-0 3 Sarafzadeh Faviola. [address] [place] [address], [id number] [place], [id number], [place]. tel:[phone] [facility] [employer], [address], [place], [id number], [place] tel:[phone] [facility] Follow Up of Abnormal pap smear (chief complaint) No Information 3 Sarafzadeh Faviola. [address] [place] [address], [id number] [place], [id number], [place]. tel:[phone] OFFICE/OUTPAT IENT VISIT, [facility] [employer], [address], [place], [place], [id number], tel:[phone] [facility] Follow Up of Abnormal pap smear (chief complaint) ASCUS of cervix with negative high risk HPV 3 Libia Salmeron. [address] [place] [address], [id number] [address], [id number], [place]. tel:[phone] OFFICE/OUTPAT IENT VISIT, [facility] [employer], [address], [place], [id number], tel:[phone] [facility] annual exam (chief complaint) Encounter for gynecological examination (general) (routine) without abnormal findingsBody mass index [BMI] 36.0-36.9, adult 3 Libia Salmeron. [address] [place] [address], [id number] [address], [id number], . tel:[phone] Family History Family Member Type Diagnosis Age At Onset No Information Payers Payer name Insurance type Covered republican ID Conner simskunal(s) [facility] [id number] [facility] Code 18 [id number] Social History Type Description Quantity Date Captured [...] Mental Status Date Cognitive Assessment Orientation - [place] ed to time, place, person, situation.
--- OUTSIDE RECORDS SUMMARY | 2024-07-05 09:07 | XMS_ITS ---
Author Organization [facility] [address] Address [address] [place] [address] Phone Care Team Providers Care Cementer Machine Name Role Phone Booker Brown MD Primary [...] (03/30/2022): Added automatically from request for surgery [id number] Assessment & Plan (02/11/2023 9:07 AM CDT): Follows with Dr. Barrientos of medical oncology. Stage IIIB ([id number]) moderately-differentiated adenocarcinoma of the hepatic flexure, diagnosed on colonoscopy at [facility] in [place], [place] on 02/12/2022. 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 Past Treatment and Therapy Plans Oncology Chemotherapy Treatment Plan Name Start [...] Barrientos MD 2 of 6 cycles started Lifetime Dose Tracking * Chemical Lifetime Dose Automatic Entry Manual Entr y Fluoro Time 0.1 minutes 0.1 minutes 0 minutes Air kerma at the reference point (Ka,r) 1.54 mGy 1 .54 mGy 0 mGy Treatment Summaries Malignant neoplasm of hepatic flexure (CMS/HCC) (HCC)* Images from the original note were not included. [address] [address] This Survivorship Care Plan is a cancer [...] Information: Primary Care Physician Booker Brown MD [phone] Surgeon Leah Tijerina MD Radiation Oncologist No care retail team member to display Medical Oncologist Lorin Barrientos MD Purchasing Director No care retail team member to display Other Providers Treatment Summary Cancer [...] Medical oncology and Surgeon if both are [facility]) History and Physical every 3 months [...] Help learning to eat healthier, call the geophysical laboratory supervisor at: [facility] . Have an active lifestyle, strive for [...] physician. Resources you may be interested in: [facility] http://www.[facility]/ [facility] & Cancer Information Center 1st floor of [facility] [phone]. Computer access, educational material, counseling services (FREE) United Ostomy Association: the place for ostomy resources, advocacy, and support. www.ostomy.org The ostomy nurse at [facility] can be reached at [phone] Online Resources: www.cancer.net; http://www.cdc.gov/cancer/survivorship; http://www.cancercare.org/tagged/post-treatment_survivorship; http://www.cancer.gov/about-cancer/coping/survivorship [employer]: https://survivorship.cancer.gov/ an online tool for cancer survivors andcaregivers created by the [place] and the National Cancer [place]. It provides: Information on dealing with side [...] (04/07/2022): Added automatically from request for surgery [id number]
--- OUTSIDE RECORDS SUMMARY | 2024-07-05 09:07 | XMS_ITS | Encounter Summary ---
Author Organization [facility] Address [address] [place] [address] Phone Care Team Providers Care Investment Banking Associate Name Role Phone Booker Brown MD Primary Care Provider + [phone] Leah Tijerina MD Unavailable [phone] Lorin Barrientos MD Unavailable + [phone] Encounter Details Date Type Department Care Team (Late st Contact Info) Description 2023 Orders Only [facility] Gastroenterology [address] 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
--- OUTSIDE RECORDS SUMMARY | 2024-07-05 09:07 | XMS_ITS | Clinical Summary ---
Author Organization [facility] [address] Address [address] [place] [address] Phone Care Team Providers Care Event Technician Name Role Phone Booker Brown MD Primary Care Provider [phone] Leah Tijerina MD Unavailable [phone] Lorin Barrientos MD Unavailable + [phone] Allergies Active Allergy Reactions Criticality Noted Date [...] (03/30/2022): Added automatically from request for surgery [id number] Assessment & Plan (02/11/2023 9:07 AM CDT): Follows with Dr. Barrientos of medical oncology. 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 She is now s/p [...] (04/07/2022): Added automatically from request for surgery [id number] Encounters Date Type Department Care Team Description 04/23/2024 3:52 PM CULTURAL CENTRE MANAGER - 04/23/2024 11:59 PM CULTURAL CENTRE MANAGER Hospital Encounter [facility] [address] [place] [address] Malignant neoplasm of hepatic flexure (CMS/HCC) (HCC) Discharge Disposition: Discharge to home or self care 04/23/2024 11:00 AM CULTURAL CENTRE MANAGER Office Visit [facility] Oncology [address] [place] [address] Lorin Barrientos MD Malignant neoplasm of hepatic flexure (CMS/HCC) (HCC) (Primary Dx); Diarrhea, unspecified type; Abnormal screening mammogram 04/23/2024 10:15 AM CULTURAL CENTRE MANAGER Clinical Support [facility] [address] [place] [address] Malignant neoplasm of hepatic flexure (CMS/HCC) (HCC) 04/23/2024 9:05 AM CULTURAL CENTRE MANAGER - 04/23/2024 11:59 PM CULTURAL CENTRE MANAGER Hospital Encounter [facility] [address] [place] [address] Malignant neoplasm of hepatic flexure (CMS/HCC) (HCC); [...] Added automatica lly from request for surgery [id number] Cancer (CMS/HCC) (HCC) 02/12/2022 Diabetes mellitus (HCC) [...] on file Legal Sex Female 4:00 AM CULTURAL CENTRE MANAGER Gender Identity Not on file Sexual Orientation [...] Comments Blood Pressure 122/78 04/23/2024 10:50 AM CULTURAL CENTRE MANAGER Pulse 79 04/23/2024 10:50 AM CULTURAL CENTRE MANAGER Temperature 36.7 C (98.1 F) 04/23/2024 10:50 AM CULTURAL CENTRE MANAGER Respiratory Rate 18 04/23/2024 10:5 0 AM CULTURAL CENTRE MANAGER Oxygen Saturation 97% 04/23/2024 10: 50 AM CULTURAL CENTRE MANAGER Inhaled Oxygen Concentration - - Weight 97.4 kg (214 lb 12.8 oz) 024 10:50 AM CULTURAL CENTRE MANAGER Height 172.7 cm (5' 8 ) 11/11/2023 10:5 7 AM CDT Body Mass Index 32.66 11/11/2023 10:57 AM CDT Plan of Treatment Health Maintenance Due Date Last Done Comments Albumin Creatinine Ratio, Urine 1970 Depression Screening 1970 Hepatitis C Screening 1970 Dilated Eye Exam 1970 Foot Exam 1969 Lipid Panel 1969 DTaP/Tdap/Td Vaccine (1 - Tdap) 1980 Hepatitis B Screening 1987 Pneumococcal vaccine <65 (1 of 2 - PCV) 1988 Regular Well Visit/Exam 18-64 02/17/2018 02/17/2017 Cervical [...] Discontinued 11/11/2023 Medical Devices Implanted Type Area Chief Engineer Device Identifier Shelf Expiration Date Model / Serial / Lot [employer] Powerport Clearvue Airguard 6fr 1 Lumen Lightweight Latex Free [id number] - [id number] Implanted:Qty: 1 on 06/21/2022 at [facility] [employer] 08/14/2023 [id number] / / [id number] Procedures Procedure Name Priority Date/Time Associated Diagnosis Comments EGFR Routine 04/23/2024 10:00 AM CULTURAL CENTRE MANAGER Malignant neoplasm of hepatic flexure (CMS/HCC) (HCC) DIFFERENTIAL AUTO Routine 04/23/2024 10: 00 AM CULTURAL CENTRE MANAGER Malignant neoplasm of hepatic flexure (CMS/HCC) (HCC) CBC WITH AUTO DIFFERENTIAL Routine 04/23/2024 10:00 AM CULTURAL CENTRE MANAGER Malignant neoplasm of hepatic flexure (CMS/HCC) (HCC) COMPREHENSIVE METABOLIC PANEL Routine 04/23/2024 10:00 AM CULTURAL CENTRE MANAGER Malignant neoplasm of hepatic flexure (CMS/HCC) (HCC) CEA Routine 04/23/2024 10:00 AM CULTURAL CENTRE MANAGER Malignant neoplasm of hepatic flexure (CMS/HCC) (HCC) US AXILLARY RIGHT Schedule Routine, Read Routine (OP Routine) 04/23/2024 9:18 AM CULTURAL CENTRE MANAGER Malignant neoplasm of hepatic flexure (CMS/HCC) (HCC) [...] Maintenance Results * eGFR (04/23/2024 10:00 AM CULTURAL CENTRE MANAGER) eGFR >90 >=60 mL/min/1. 73 m2 Comment: [...] reviewed 2021. Blood 04/23/2024 10:0 0 AM CULTURAL CENTRE MANAGER 04/23/2024 10:09 AM CULTURAL CENTRE MANAGER Lorin Barrientos MD LAB BLOOD ORDERABLES F inal Result [facility] [address] [facility] [place] [address] * Differential, auto (04/23/2024 10:00 AM CULTURAL CENTRE MANAGER) Neutrophil abs 5.1 1.5 - 6.5 K/cumm Comment:Testing performed by : [facility] [address], [place] [address] Lymphocyte abs 2.6 0.8 - 3.3 K/cumm [facility] Comment:Testing performed by : [facility] [place] [address] Monocyte abs 0.4 0.2 - 0.8 K/cumm [facility] Comment:Testing performed by : [facility] [place] [address] Eosinophil abs 0.3 0.0 - 0.5 K/cumm [facility] Comment:Testing performed by : [facility] [address], [place] [address] Basophil abs 0.1 0.0 - 0.1 K/cumm [facility] Comment:Testing performed by : [facility],[address] [place] [address] Neutrophil pct 59.7 % [facility] Comment: Interpretive Data Percent cell count reference ranges are not reported, since discordance with absolute values may lead to misinterpretation of CBC data. Current Interpretive Data was last revised on 2017. Testing performed by: [facility],[address] [place] [address] Imm gran pct 0.4 % [facility] Comment: Interpretive Data Percent cell count reference ranges are not reported, since discordance with absolute values may lead to misinterpretation of CBC data. Current Interpretive Data was last revised on 2017. Testing performed by: [facility] [address], [place] [address] Lymphocyte pct 30.9 % [facility] Comment: Interpretive Data Percent cell count reference ranges are not reported, since discordance with absolute values may lead to misinterpretation of CBC data. Current Interpretive Data was last revised on 2017. Testing performed by: [facility],[address] [place] [address] Way, [place] [address] Monocyte pct 4.3 % [facility] Comment: Interpretive Data Percent cell count reference ranges are not reported, since discordance with absolute values may lead to misinterpretation of CBC data. Current Interpretive Data was last revised on 2017. Testing performed by: [facility],[address] [place] [address], [place] [address] Eosinophil pct 3.4 % [facility] Comment: Interpretive Data Percent cell count reference ranges are not reported, since discordance with absolute values may lead to misinterpretation of CBC data. Current Interpretive Data was last revised on 2017. Testing performed by: [facility],[address] [place] [address], [place] [address] Basophil pct 1.3 % [facility] Comment: Interpretive Data Percent cell count reference ranges are not reported, since discordance with absolute values may lead to misinterpretation of CBC data. Current Interpretive Data was last revised on 2017. Testing performed by: [address] [address] Blood 04/23/2024 10:0 0 AM CULTURAL CENTRE MANAGER 04/23/2024 10:01 AM CULTURAL CENTRE MANAGER us Lorin Barrientos MD LAB BLOOD ORDERABLES F inal Result [facility] [address] [facility] [place] [address] * (ABNORMAL) CBC with auto differential (04/23/2024 10:00 AM CULTURAL CENTRE MANAGER) WBC 8.6 3.8 - 9.9 K/cumm Comment:Testing performed by : [place] [address] Hgb 13.4 11.9 - 15.5 g/dL [facility] Comment:Testing performed by : [address] [address] Hct 40.1 35.6 - 45.5 % [facility] Comment:Testing performed by : [facility] [place] [address] Plt 190 150 - 400 K/cumm [facility] Comment:Testing performed by : [address] [place] [address] [place] [address] MPV 8.5(L) 9.1 - 12.3 fL [facility] Comment:Testing performed by : [place] [address] RBC 4.37 3.90 - 5.20 M/cumm [facility] Comment:Testing performed by : [place] [address] MCV 91.8 81.3 - 96.4 fL [facility] Comment:Testing performed by : [facility] [place] [address] MCH 30.7 27.1 - 33.3 pg [facility] Comment:Testing performed by : [place] [address] MCHC 33.4 32.3 - 35.7 g/dL [facility] Comment:Testing performed by : [place] [address] RDW CV 14.2 11.1 - 14.9 % [facility] Comment:Testing performed by : [address] [address] [place] [address] RDW SD 47.8 35.7 - 48.1 fL [facility] Comment:Testing performed by : [place] [address] NRBC abs 0.00 0.00 - 0.01 K/cumm [facility] Comment:Testing performed by : [place] [address] Blood 04/23/2024 10:0 0 AM CULTURAL CENTRE MANAGER 04/23/2024 10:01 AM CULTURAL CENTRE MANAGER us Lorin Barrientos MD LAB BLOOD ORDERABLES F inal Result [facility] [place] [address] * (ABNORMAL) CEA (04/23/2024 10:00 AM CULTURAL CENTRE MANAGER) [facility] CEA 10.3(H) <=5.0 ng/mL Comment: Interpretive Data Reference Range: Non-Smokers: < or = 3.0 ng/mL Some Smokers may have elevated levels, usually < 5.0 ng/mL The Genoveva CEA assay procedure was used. Results from different manufacturers or methods may not be comparable. Serial testing should be performed using the same method. Testing performed by: [facility], [facility], [place]., [address] Blood 04/23/2024 10:0 0 AM CULTURAL CENTRE MANAGER 04/23/2024 2:12 PM CULTURAL CENTRE MANAGER Lorin Barrientos MD LAB BLOOD ORDERABLES F inal Result [address] Department [place] [address] * Comprehensive metabolic panel (04/23/2024 10:00 AM CULTURAL CENTRE MANAGER) [facility] Sodium 140 135 - 145 mmol/L Potassium, pl 3.8 3.3 - 4.9 mmol/L [facility] Chloride 107 97 - 110 mmol/L [facility] CO2 24 22 - 32 mmol/L [facility] Anion gap 9 2 - 15 mmol/L [facility] BUN 8 6 - 25 mg/dL [facility] Creatinine 0.76 0.60 - 1.10 mg/dL [facility] Glucose 122 70 - 199 mg/dL [facility] Comment: Interpretive Data Fasting glucose >/= 126 [...] Calcium 9.0 8.5 - 10.3 mg/dL [facility] Bilirubin, total <0.1 0.1 - 1.2 mg/dL [facility] Protein, pl 7.0 6.5 - 8.5 g/dL [facility] Albumin 4.2 3.5 - 5.0 g/dL [facility] Alk phos 60 40 - 130 Units/L [facility] ALT 23 7 - 45 Units/L [facility] AST 20 10 - 45 Units/L [facility] Blood 04/23/2024 10:0 0 AM CULTURAL CENTRE MANAGER 04/23/2024 10:09 AM CULTURAL CENTRE MANAGER Lorin Barrientos MD LAB BLOOD ORDERABLES E dited Result - Final Performing Organization Address City/State/[facility] Co de Phone Number [facility] [address] [facility] [place] [address] * US Axillary Breast Right (04/23/2024 9:18 AM CULTURAL CENTRE MANAGER) Anatomical Region Laterality Modality Upper Extremities Right Ultrasound 04/23/2024 10:5 6 AM CULTURAL CENTRE MANAGER Impressions 04/23/2024 10:56 AM CULTURAL CENTRE MANAGER Redemonstrated is a 2 cm right axillary [...] Arlin Johnson M.D. Narrative 04/23/2024 10:56 AM CULTURAL CENTRE MANAGER EXAMINATION: RIGHT AXILLARY ULTRASOUND HISTORY: Short interval [...] signed by: Arlin Johnson M.D. us Lorin Daisy Barrientos MD IMG US PROCEDURES Kathy l Result * Colonoscopy (11/11/2023 11:47 AM CDT) Anatomical Region Laterality Modality Other Narrative Procedure Note Jayson Watters MD - 11/11/2023 11:47 AM CDT ENDOSCOPY LAB Patient Name: Marissa Salcedo Procedure Date: 11/11/2023 11:47 AM Date of : 1970 Admit Type: Outpatient Age: 53 Gender: Female Attending MD: Jayosn Watters M.D. Room: [facility] ENDOSCOPY ROOM 05 Note Status: Finalized Procedure: [...] The scope was passed under direct vision.The [id number] was introduced through the anusand advanced to the ileocolonic anastomosis. The colonoscopy was performed without difficulty. The patient tolerated the procedure well. The qualityof the bowel preparation was evaluated using the BBPS ([place] Bowel Preparation Scale) with scores of:Right Colon [...] following this procedure please call my officeat [phone] to speak to my nurses. After hours and evenings please call [phone] andspeak to the GI fellow correction officer head. Please tell them that Dr. Watters did your procedure and that your wereinstructed to have the fellow call me or the physiciancovering for me to discuss the management of your condition.If you have an urgent problem, [facility] and have the ER doctor call juan r during the day or the GI Fellow after hours and weekends to arrange admission or transfer to our facility. - Call my nurse Teagan Schultz RN in the GI office at [phone] for your final pathology results in 7 days. Attending Participation: I personally performed the entire procedure. Electronically Signed By: Jaysno Watters M.D. Jayson Watters M.D. 11/11/2023 12:10:22 [...] POC 5.3 4.0 - 5.6 % [facility] Est Average Gluc POC 105 mg/dL [facility] Comment: The ADA recommends reporting an estimated Average Glucose (eAG) with all Hemoglobin A1c results using the equation derived from a study of 507 normal and diabetic adults. Minority populations were underrepresented and children were not included. (Diabetes Care 31:5930-7795, 2008). The eAG is not equivalent to a fasting glucose. Blood 02/03/2023 12:4 9 PM CDT 02/03/2023 12:49 PM CDT us Notinfile Unknown POINT OF CARE TEST ORDERABLES Final Result [facility] [place] [address] * ThinPrep Imaging Pap Reflex HPV mRNA E6/E7 (02/18/2017 9:52 AM CDT) Report status CANCELED [facility] Comment:Result canceled by tania yost ancillary Clinical information [facility] - Comment:Information not [...] for intraep ithelial lesion or malignancy. 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 COMMENTS [facility] - Comment: This Pap test has been evaluated with computer assisted technology. Occupational Therapy Aides Teacher [facility] - Comment: LMT, CT(ASCP) CT screening location: [place] [address] [place] [address] Review commercial food instructor CANCELED [facility] - Comment:Result canceled by tania yost ancillary Pathologist CANCELED [facility] - Comment:Result canceled by tania yost ancillary 02/18/2017 9:52 AM CDT 02/21/2017 9:57 AM CDT Narrative Resulting Agency Comment Performing Organization Information: Site ID: Name: [facility] Address: [facility] [place] [address] Director: Tanvir Guerra MD Huma Haile MD LAB PATHOLOGY ORDER LOBO Final Result [facility] - [place], [place] from Last 3 Months or Most Recently Relevant to Health Maintenance Insurance [facility] Advance Directives For more information, please contact: [phone] * Full Code (Latest Code Status on File) Date Activated Date Inactivated Comments 11/11/2023 10:33 AM 11/11/2023 4:52 PM * Full Code Date Activated Date Inactivated Comments 02/10/2023 3:29 PM 02/11/2023 3:49 PM * Full Code Date Activated Date Inactivated Comments 04/16/2022 2:30 PM 04/19/2022 11:02 PM Care Teams Event Technician Relationship Specialty Start Date End Date Booker Brown MD PCP - General 09/10/15 Leah Tijerina MD [address] [facility] [phone] [place] [address] Surgeon Colon and Rectal Surgery 04/19/22 Lorin Barrientos MD [address] [place] [address] Medical Oncologist Medical Oncology 05/12/22
== END 2024-07-05 08:57 | disposition home or self-care (01) ==
PROVIDERS: PCP Family Medicine; Visit Provider Nurse Practitioner Adult Health
DX: J44.1 Chronic obstructive pulmonary disease with (acute) exacerbation (principal); R05.8 Other specified cough; Z95.828 Presence of other vascular implants and grafts
CPT/HCPCS: 71046

== ENCOUNTER 2024-09-24 13:32 | Emergency (ER) | payer OTHER, SELFPAY ==
--- OUTSIDE RECORDS SUMMARY | 2024-09-24 13:36 | XMS_ITS | Clinical Summary ---
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 Name Role Phone Booker Brown MD Primary Care Provider [phone] Leah Tijerina MD Unavailable [phone] Lorin Barrientos MD Unavailable + [phone] Allergies Active Allergy Reactions Criticality Noted Date Comments Chlorhexidin-Isopropyl Alcohol Rash,Redness Medium 01/2023 Penicillins Rash,Angioedema High 01/20/[address] (CYMBALTA) 30 mg capsule take 1 capsule by oral route every day 0 0 08/07/19 16 Active Additional Information Patient taking differently:30 mgoral Every morning, Indications: Anxiety with Depression, Informant: Self, Reported on 08/20/2024 PROAIR HFA 90 mcg/actuation inhalerIndicat ions:Acute Asthma [...] mg tabletIndicati ons:Malignant neoplasm of hepatic flexure (HCC) TAKE 1 TABLET(10 MG) BY MOUTH EVERY 6 HOURS NEEDED FOR NAUSEA OR VOMITING. USE FIRST 120 tablet 3 11/13/19 23 Active Additional Information Patient not taking.Informant: Self, Reported on 08/20/2024 cyanocobalamin (Vitamin B-12) 1,000 mcg tabletIndicati ons:Prevention [...] mg tabletIndicati ons:Malignant neoplasm of hepatic flexure (HCC) Take 1 tablet (8 mg total) by mouth 2 (two) times a day as needed for nausea Use if prochlorperazine does not stop nausea. 10 tablet 02/12/20 23 Active Additional Information Patient not taking.Reported on 08/20/2024 meloxicam (MOBIC) 15 mg tablet TAKE 1 [...] for diarrhea 60 tablet 04/23/20 24 Active fluticasone propionate (FLONASE) 50 mcg/actuation nasal spray Administer 1 spray into each nostril daily Active biotin 10 mg tablet Take 1 tablet (10 mg total) by mouth daily Active clotrimazole (MYCELEX) 10 mg manuel Take 1 tablet (10 mg total) by mouth 4 (four) times a day for 7 days 28 tablet 08/23/19 25 025 Active Problems Problem Noted Date Diagnosed Date [...] rosuvastatin -lisinopril for benazepril Diabetic peripheral neuropathy 09/09/2022 Disorder of globe 09/09/2022 Dystrophia unguium 09/09/2022 Ear problem 09/09/2022 Headache 09/09/2022 Obesity 09/09/2022 Malignant tumor of kidney 09/09/2022 Hypercholesterolemia 09/09/2022 Pain in toe 09/09/2022 Malignant neoplasm of hepatic flexure 03/30/2022 Overview (03/30/2022): Added automatically from request for surgery [id number] Assessment & Plan (02/11/2023 9:07 AM CDT): Follows with Dr. Barrientos of medical oncology. 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 She is now s/p [...] neoplasm of colon 09/09/2022 07/11/2023 Colon cancer 04/16/2022 05/12/2022 Biliary colic 03/30/2022 04/19/2022 Overview (04/07/2022): Added automatically from request for surgery [id number] Encounters Date Type Department Care Team Description 09/17/2024 12:40 PM CDT - 09/17/2024 11:59 PM CDT Hospital Encounter [facility] [address] [place] [id number] Malignant neoplasm of hepatic flexure (HCC); Abnormal screening mammogram Discharge Disposition: Discharge to home or self care 09/17/2024 11:51 AM CDT - 09/17/2024 11:59 PM CDT Hospital Encounter [facility] [address] [place] [id number] , [facility] [place] [facility] Malignant neoplasm of hepatic flexure (HCC); Abnormal screening mammogram Discharge Disposition: Discharge to home or self care 09/14/2024 Telephone [facility] [address] [place] [address] Teagan Bailey 09/07/2024 Orders Only [facility] [address] [place] [address] Kendrick Ashraf 08/31/2024 1:48 PM CDT - 08/31/2024 11:59 PM CDT Hospital Encounter [address] [address] Malignant neoplasm of hepatic flexure (HCC) Discharge Disposition: Discharge to home or self care 08/28/2024 12:26 PM CDT - 08/28/2024 11:59 PM CDT Hospital Encounter [address] [address] Malignant neoplasm of hepatic flexure (HCC) Discharge Disposition: Discharge to home or self care 08/20/2024 11:30 AM CDT Office Visit [facility] [address] [place] [address] Lorin Barrientos MD Malignant neoplasm of hepatic flexure (HCC) (Primary Dx) 08/20/2024 10:45 AM CDT Clinical Support [facility] [address] [place] [address] Malignant neoplasm of hepatic flexure (HCC) 08/20/2024 10:44 AM CDT - 08/20/2024 11:59 PM CDT Hospital Encounter [facility] [address] [place] [address] Malignant neoplasm of hepatic flexure (HCC) Discharge Disposition: Discharge to home or self care from Last 3 Months Surgical History Surgery Date Site/Laterality Comments ENDOMETRIAL ABLATION W/ NOVASURE 05/16/2015 - 05/15/2016 COLONOSCOPY 05/16/2021 - 05/15/2022 PORT PLACEMENT CHEST >5 YEARS 06/21/2022 N/A COLON SURGERY 04/16/2022 CHOLECYSTECTOMY 04/16/2022 Medical History Medical History Date Comments Pre-diabetes 2015 Hypertension Depression COPD (chronic obstructive pu lmonary disease) (HCC) Genital warts 1986 GERD with esophagitis Vocal cord paralysis Biliary colic 03/30/2022 Added conora eduar from request for surgery [id number] Cancer (HCC) 02/12/2022 Diabetes mellitus (HCC) 2014 Motion [...] Juma Turnbeaugh Heart disease Maternal Grandfather Juma Turnbeaugh Hypertension Maternal Grandfather Juma Turnbeaugh Prostate cancer [...] Mother Yola Hoyos Cancer Mother's Brother 1 Edfreida Turnbeauroberto Prostate cancer Mother's Brother 1 Ion Turnbeaugh Arthritis Mother's Brother 2 Juma Johnson Turnbeaugh Depression Mother's Brother 2 Juma Alex Turnbeaugh Arthritis Mother's Sister Kassy Turnbeaugh Depression Mother's Sister Kassy Turnbeauroberto Obesity Mother's Sister Kassy Turnbeaugh Depression Sister Marzena Ervin Mental illness Sister Marzena Ervin Anesthesia problems Neg Hx Relation Name Status Comments Daughter 1 Valentina Gillespie Daughter 2 Pauline Farias Father Jairo hoyos Maternal Grandfather Juma Chavezauroberto Maternal Grandmother Leigh Chavezauroberto Mother Yola Hoyos Mother's Brother 1 Edfreida Turnbeaugh Mother's Brother 2 Juma Johnson Turnbeaugh Mother's Sister Kassy Turnjeanineauroberto Sister Marzena Ervin Social History Tobacco Use Types Packs/Day Years [...] on file 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[employer] Gender Identity Not on file Sexual Orientation [...] Sign Reading Time Taken Comments Blood Pressure 103/74 08/20/2024 12:02 PM CDT Pulse 93 08/20/2024 12:02 PM CDT myra ding Temperature 36.7 C (98.1 F) 08/20/2024 11:18 AM CDT Respiratory Rate 18 08/20/2024 11:18 AM CDT Oxygen Saturation 97% 08/20/2024 12:01 PM CDT Inhaled Oxygen Concentration - - Weight 98.4 kg (217 lb) 08/20/2024 11:18 AM CDT Height 171.5 cm (5' 7.5 ) 08/20/2024 11:18 AM CD T Body Mass Index 33.49 08/20/2024 11:18 AM CDT Plan of Treatment Health Maintenance [...] A1C 08/04/2023 02/03/2023, 04/07/2022 Covid-19 Vaccine (3 - 2023-2 5 season) 2024 08/02/2020, 07/05/2020 Influenza Vaccine (Season Ended) 2025 eGFR 08/20/2025 08/20/2024, 12/01/2024, 01/26/2024, Additional history exists Breast Cancer Screening-Mammogram 09/17/2025 025, 09/16/2023 Colon Cancer Screening-Colonoscopy 11/10/2033 11/11/2023 Colon Cancer Screening-CT Colonography Discontinued 11/11/2023 Colon Cancer Screening-DNA Stool Discontinued 11/11/19 Colon Cancer Screening-FIT Discontinued 11/11/2023 Colon Cancer Screening-Sigmoidoscopy Discontinued 11/11/2023 Medical Devices Implanted Type Area Critical Care Paramedic Device Identifier Shelf Expiration Date Model / Serial / Lot [employer] Powerport Clearvue Airguard 6fr 1 Lumen Lightweight Latex Free [id number] - [id number] Implanted:Qty: 1 on 06/21/2022 at [facility] [employer] 08/14/2023 [id number] / / [id number] Procedures Procedure Name Priority Date/Time Associated Diagnosis Comments US AXILLARY RIGHT Schedule Routine, Read Routine (OP Routine) 09/17/2024 12:54 PM CDT Malignant neoplasm of hepatic flexure (HCC) Abnormal screening mammogram DIAGNOSTIC MAMMOGRAM BILATERAL W LAN Schedule Routine, Read Routine (OP Routine) 09/17/2024 12:32 PM CDT Malignant neoplasm of hepatic flexure (HCC) Abnormal screening mammogram CT ABDOMEN PELVIS W CONTRAST Schedule Routine, Read Routine (OP Routine) 08/31/2024 2:17 PM CDT Malignant neoplasm of hepatic flexure (HCC) C. DIFFICILE TESTING Routine 08/28/2024 9:45 AM CDT Malignant neoplasm of hepatic flexure (HCC) STOOL CULTURE Routine 08/28/2024 9:45 AM CDT Malignant neoplasm of hepatic flexure (HCC) EGFR Routine 08/20/2024 11:01 AM CDT Malignant neoplasm of hepatic flexure (HCC) DIFFERENTIAL AUTO Routine 08/20/2024 11: 01 AM CDT Malignant neoplasm of hepatic flexure (HCC) CEA Routine 08/20/2024 11:01 AM CDT Malignant neoplasm of hepatic flexure (HCC) CBC WITH AUTO DIFFERENTIAL Routine 08/20/2024 11:01 AM CDT Malignant neoplasm of hepatic flexure (HCC) COMPREHENSIVE METABOLIC PANEL Routine 08/20/2024 11:01 AM CDT Malignant neoplasm of hepatic flexure (HCC) COLONOSCOPY 11/11/2023 11:47 AM CDT POCT HEMOGLOBIN A1C Routine 02/03/2023 1 2:49 PM CDT THINPREP IMAGING PAP REFLEX HPV MRNA E6/E7 Routine 02/18/2017 9:52 AM CDT from Last 3 Months or Most Recently Relevant to Health Maintenance Results * US Axillary Breast Right (09/17/2024 12:54 PM CDT) Anatomical Region Laterality Modality Upper Extremities Right Ultrasound 09/17/2024 1:04 PM CDT Impressions 09/17/2024 1:04 PM CDT Lymph nodes in the right axilla with hyper dense foci likely representing tattoo ink are probably benign. OVERALL FINAL ASSESSMENT: BI-RADS Category 3: Probably Benign. RECOMMENDATION: Recommend follow-up diagnostic breast imaging in 12 months with right axillary ultrasound. The patient will be due for her bilateral mammogram. Electronically signed by: Amanda Brewer M.D. Narrative 09/17/2024 1:04 PM CDT EXAMINATION: BILATERAL DIGITAL DIAGNOSTIC MAMMOGRAM INCLUDING CAD AND BILATERAL DIGITAL BREAST TOMOSYNTHESIS; RIGHT AXILLARY SONOGRAM HISTORY: Short-term follow-up right axillary lymph node. COMPARISON: Dating back to 09/16/2023 TECHNIQUE: Full field digital mammographic views of BOTH breasts were performed, including computer aided detection (CAD) and BILATERAL digital breast tomosynthesis (DBT). Directed ultrasound evaluation of the RIGHT breast was performed. BREAST PARENCHYMAL COMPOSITION: There are scattered areas of fibroglandular density. MAMMOGRAM FINDINGS: No mass or suspicious finding in the right breast. Right axillary lymph nodes with calcifications are again seen likely representing ink in from right arm tattoo. There is no new suspicious abnormality in the LEFT breast. SONOGRAM FINDINGS: Focused ultrasound of the right axilla is performed. There is no change in right axillary lymph node measuring 1.9 x 2 x 6 cm with cortical thickness of 3 mm, probably benign. Procedure Note Amanda Brewer MD - 09/17/2024 EXAMINATION: BILATERAL DIGITAL DIAGNOSTIC MAMMOGRAM INCLUDING CAD AND BILATERAL DIGITAL BREAST TOMOSYNTHESIS; RIGHT AXILLARY SONOGRAM HISTORY: Short-term follow-up right axillary lymph node. COMPARISON: Dating back to 09/16/2023 TECHNIQUE: Full field digital mammographic views of BOTH breasts were performed, including computer aided detection (CAD) and BILATERAL digital breast tomosynthesis (DBT). Directed ultrasound evaluation of the RIGHT breast was performed. BREAST PARENCHYMAL COMPOSITION: There are scattered areas of fibroglandular density. MAMMOGRAM FINDINGS: No mass or suspicious finding in the right breast. Right axillary lymph nodes with calcifications are again seen likely representing ink in from right arm tattoo. There is no new suspicious abnormality in the LEFT breast. SONOGRAM FINDINGS: Focused ultrasound of the right axilla is performed. There is no change in right axillary lymph node measuring 1.9 x 2 x 6 cm with cortical thickness of 3 mm, probably benign. IMPRESSION: Lymph nodes in the right axilla with hyper dense foci likely representing tattoo ink are probably benign. OVERALL FINAL ASSESSMENT: BI-RADS Category 3: Probably Benign. RECOMMENDATION: Recommend follow-up diagnostic breast imaging in 12 months with right axillary ultrasound. The patient will be due for her bilateral mammogram. Electronically signed by: Amanda Brewer M.D. us Lorin Daisy Barrientos MD IMG US PROCEDURES Kathy l Result * Diagnostic Mammogram Bilateral W Lan (09/17/2024 12:32 PM CDT) Anatomical Region Laterality Modality Breast Bilateral Mammography 09/17/2024 1:04 PM CDT Impressions 09/17/2024 1:04 PM CDT Lymph nodes in the right axilla with hyper dense foci likely representing tattoo ink are probably benign. OVERALL FINAL ASSESSMENT: BI-RADS Category 3: Probably Benign. RECOMMENDATION: Recommend follow-up diagnostic breast imaging in 12 months with right axillary ultrasound. The patient will be due for her bilateral mammogram. Electronically signed by: Amanda Brewer M.D. Narrative 09/17/2024 1:04 PM CDT EXAMINATION: BILATERAL DIGITAL DIAGNOSTIC MAMMOGRAM INCLUDING CAD AND BILATERAL DIGITAL BREAST TOMOSYNTHESIS; RIGHT AXILLARY SONOGRAM HISTORY: Short-term follow-up right axillary lymph node. COMPARISON: Dating back to 09/16/2023 TECHNIQUE: Full field digital mammographic views of BOTH breasts were performed, including computer aided detection (CAD) and BILATERAL digital breast tomosynthesis (DBT). Directed ultrasound evaluation of the RIGHT breast was performed. BREAST PARENCHYMAL COMPOSITION: There are scattered areas of fibroglandular density. MAMMOGRAM FINDINGS: No mass or suspicious finding in the right breast. Right axillary lymph nodes with calcifications are again seen likely representing ink in from right arm tattoo. There is no new suspicious abnormality in the LEFT breast. SONOGRAM FINDINGS: Focused ultrasound of the right axilla is performed. There is no change in right axillary lymph node measuring 1.9 x 2 x 6 cm with cortical thickness of 3 mm, probably benign. Procedure Note Amanda Brewer MD - 09/17/2024 EXAMINATION: BILATERAL DIGITAL DIAGNOSTIC MAMMOGRAM INCLUDING CAD AND BILATERAL DIGITAL BREAST TOMOSYNTHESIS; RIGHT AXILLARY SONOGRAM HISTORY: Short-term follow-up right axillary lymph node. COMPARISON: Dating back to 09/16/2023 TECHNIQUE: Full field digital mammographic views of BOTH breasts were performed, including computer aided detection (CAD) and BILATERAL digital breast tomosynthesis (DBT). Directed ultrasound evaluation of the RIGHT breast was performed. BREAST PARENCHYMAL COMPOSITION: There are scattered areas of fibroglandular density. MAMMOGRAM FINDINGS: No mass or suspicious finding in the right breast. Right axillary lymph nodes with calcifications are again seen likely representing ink in from right arm tattoo. There is no new suspicious abnormality in the LEFT breast. SONOGRAM FINDINGS: Focused ultrasound of the right axilla is performed. There is no change in right axillary lymph node measuring 1.9 x 2 x 6 cm with cortical thickness of 3 mm, probably benign. IMPRESSION: Lymph nodes in the right axilla with hyper dense foci likely representing tattoo ink are probably benign. OVERALL FINAL ASSESSMENT: BI-RADS Category 3: Probably Benign. RECOMMENDATION: Recommend follow-up diagnostic breast imaging in 12 months with right axillary ultrasound. The patient will be due for her bilateral mammogram. Electronically signed by: Amanda Brewer M.D. Lorin Barrientos MD [facility] MAMMO PROCEDURES F inal Result * CT Abdomen Pelvis W Contrast (08/31/2024 2:17 PM CDT) Anatomical Region Laterality Modality Body N/A Computed Tomogra phy 08/31/2024 2:32 PM CDT Impressions 08/31/2024 2:32 PM CDT 1. Stable post-ablation changes in the left kidney with a small residual nodular focus, which is unchanged. Attention on follow-up imaging is recommended. 2. No acute process in the abdomen or pelvis. Electronically signed by: Viridiana Riddle M.D. Narrative 08/31/2024 2:32 PM CDT EXAMINATION: Computed tomography of the abdomen and pelvis with intravenous contrast HISTORY: 54-year-old man with history of left renal cell carcinoma status post ablation, left lower quadrant abdominal pain and diarrhea. TECHNIQUE: Transaxial computed tomographic images of the abdomen and pelvis were obtained with intravenous contrast according to the standard protocol after the uneventful administration of 75 mL Opti-Ray 350 intravenous contrast. COMPARISON: 01/23/2024 FINDINGS: Multiple tiny nodules in the imaged lung bases are unchanged. Imaged heart is unremarkable. No new suspicious hepatic lesion. Cholecystectomy. The pancreas is unremarkable. An ill-defined low attenuating lesion in the spleen is unchanged. The adrenal glands and right kidney appear normal. Unchanged post-ablation changes in the left kidney with a small residual nodular focus on series 2 image 70. No hydronephrosis. Urinary bladder is decompressed. Uterus is present. No adnexal mass. Colonic diverticulosis without evidence of acute diverticulitis. Postsurgical changes of partial colectomy with an anastomosis in the midline abdomen. No bowel obstruction. Atherosclerosis of the aorta and its branches. No new or enlarging lymphadenopathy. No aggressive osseous lytic or blastic lesion. Procedure Note Viridiana Riddle MD - 08/31/2024 EXAMINATION: Computed tomography of the abdomen and pelvis with intravenous contrast HISTORY: 54-year-old man with history of left renal cell carcinoma status post ablation, left lower quadrant abdominal pain and diarrhea. TECHNIQUE: Transaxial computed tomographic images of the abdomen and pelvis were obtained with intravenous contrast according to the standard protocol after the uneventful administration of 75 mL Opti-Ray 350 intravenous contrast. COMPARISON: 01/23/2024 FINDINGS: Multiple tiny nodules in the imaged lung bases are unchanged. Imaged heart is unremarkable. No new suspicious hepatic lesion. Cholecystectomy. The pancreas is unremarkable. An ill-defined low attenuating lesion in the spleen is unchanged. The adrenal glands and right kidney appear normal. Unchanged post-ablation changes in the left kidney with a small residual nodular focus on series 2 image 70. No hydronephrosis. Urinary bladder is decompressed. Uterus is present. No adnexal mass. Colonic diverticulosis without evidence of acute diverticulitis. Postsurgical changes of partial colectomy with an anastomosis in the midline abdomen. No bowel obstruction. Atherosclerosis of the aorta and its branches. No new or enlarging lymphadenopathy. No aggressive osseous lytic or blastic lesion. IMPRESSION: 1. Stable post-ablation changes in the left kidney with a small residual nodular focus, which is unchanged. Attention on follow-up imaging is recommended. 2. No acute process in the abdomen or pelvis. Electronically signed by: Viridiana Riddle M.D. Lorin Barrientos MD IMG CT PROCEDURES Kathy l Result * C. difficile testing Stool (08/28/2024 9:45 AM CDT) [facility] Result Negative Negative Toxin Result Negative Negative RAMIRO TOTH (JEFE) C. diff result Negative, free toxin Negative, free toxin ARMIRO TOTH (JEFE) C. diff interp Negative for toxigenic Clostridioides (Clostridium) difficile. Analysis was performed using a glutamate dehydrogenase antigen detection assay combined with a C. difficile toxin detection assay. RAMIRO TOTH (JEFE) Stool 08/28/2024 9:45 AM CDT 08/28/2024 12:33 PM CDT Lorin Barrientos MD LAB MICROBIOLOGY - GEN ERAL ORDERABLES Final Result RAMIRO TOTH (JEFE) 1 [facility] Department [place] [address] * Stool culture Stool Rectum (08/28/2024 9:45 AM CDT) Direct Specimen Exam Shiga Toxin Testing: Antigen detection assay for Shiga-toxin NEGATIVE for Shiga Toxin 1 and Shiga Toxin 2. Comment:Testing performed by : [facility], [address] [place]., [address] Report Final Report: No growth of enteric bacterial pathogens RAMIRO TOTH (JEFE) Comment:Testing performed by : [facility], [address] [place]., [address] Stool (Rectum) 08/28/2024 9: 45 AM CDT 08/28/2024 4:38 PM CDT Narrative RAMIRO TOTH (JEFE) - 09/01/2024 9:30 AM CDT Received in transport media. Testing performed by [facility] ([phone]). Routine stool cultures include procedures to detect Salmonella, Shigella, Edwardsiella, Aeromonas, Pleisiomonas, Campylobacter, Yersinia, E. coli O157, and Shiga-like toxins. Vibrio is cultured only upon special request. If Vibrio is suspected, please call the laboratory at [phone]. Interpretive data was last updated September 20, 2016. Lorin Barrientos MD LAB MICROBIOLOGY - GEN ERAL ORDERABLES Final Result RAMIRO NAVNEET (JEFE) 1 [facility] Department [place] [address] * eGFR (08/20/2024 11:01 AM CDT) eGFR 86 >=60 mL/min/1. 73 m2 Comment: Interpretive Data [...] interpretive data was last reviewed 2021. Blood 08/20/2024 11:0 1 AM CDT 08/20/2024 11:14 AM CDT us Lorin Barrientos MD LAB BLOOD ORDERABLES F inal Result [facility] [address] [facility] Department [place] [address] * (ABNORMAL) Differential, auto (08/20/2024 11:01 AM CDT) Neutrophil abs 5.36 1.50 - 6.50 K/cumm Comment:Testing performed by : [place] [address] Imm gran abs 0.04 0.00 - 0.10 K/cumm CERNER BJSP Comment:Testing performed by : [place] [address] Lymphocyte abs 3.02 0.80 - 3.30 K/cumm CERNER BJSP Comment:Testing performed by : [place] [address] [place] [address] Monocyte abs 0.43 0.20 - 0.80 K/cumm CERNER BJSP Comment:Testing performed by : [place] [address] Eosinophil abs 0.25 0.00 - 0.50 K/cumm CERNER BJSP Comment:Testing performed by : [place] [address] [place] [address] Basophil abs 0.11(H) 0.00 - 0.10 K/cumm CERNER BJSPH Comment:Testing performed by : [facility],[address], [place] [address] Neutrophil pct 58.2 % CERNER BJSP Comment: Interpretive Data Percent cell count reference ranges are not reported, since discordance with absolute values may lead to misinterpretation of CBC data. Current Interpretive Data was last revised on 2017. Testing performed by: [facility],[address], [place] [address] Imm gran pct 0.4 % CERNER BJSP Comment: Interpretive Data Percent cell count reference ranges are not reported, since discordance with absolute values may lead to misinterpretation of CBC data. Current Interpretive Data was last revised on 2017. Testing performed by: [facility],[address], [place] [address] Lymphocyte pct 32.8 % CERNER BJSP Comment: Interpretive Data Percent cell count reference ranges are not reported, since discordance with absolute values may lead to misinterpretation of CBC data. Current Interpretive Data was last revised on 2017. Testing performed by: [facility],[address], [place] [address] Monocyte pct 4.7 % CERNER BJSP Comment: Interpretive Data Percent cell count reference ranges are not reported, since discordance with absolute values may lead to misinterpretation of CBC data. Current Interpretive Data was last revised on 2017. Testing performed by: [facility],[address], [place] [address] Eosinophil pct 2.7 % CERNER BJSP Comment: Interpretive Data Percent cell count reference ranges are not reported, since discordance with absolute values may lead to misinterpretation of CBC data. Current Interpretive Data was last revised on 2017. Testing performed by: [facility],[address], [place] [address] Basophil pct 1.2 % CERNER BJSP Comment: Interpretive Data Percent cell count reference ranges are not reported, since discordance with absolute values may lead to misinterpretation of CBC data. Current Interpretive Data was last revised on 2017. Testing performed by: [facility],[address], [place] [address] Blood 08/20/2024 11:0 1 AM CDT 08/20/2024 11:12 AM CDT us Lorin Barrientos MD LAB BLOOD ORDERABLES F inal Result [facility] 10 [facility] Department of [place] [address] * (ABNORMAL) CBC with auto differential (08/20/2024 11:01 AM CDT) WBC 9.21 3.80 - 9.90 K/cumm Comment:Testing performed by : [place] [address] [place] [address] Hgb 13.5 11.9 - 15.5 g/dL [facility] Comment:Testing performed by : [place] [address] [place] [address] Hct 40.1 35.6 - 45.5 % [facility] Comment:Testing performed by : [place] [address] [place] [address] Plt 210 150 - 400 K/cumm [facility] Comment:Testing performed by : [place] [address] [place] [address] MPV 8.6(L) 9.1 - 12.3 fL [facility] Comment:Testing performed by : [place] [address] [place] [address] RBC 4.42 3.90 - 5.20 M/cumm [facility] Comment:Testing performed by : [place] [address] [place] [address] MCV 90.7 81.3 - 96.4 fL [facility] Comment:Testing performed by : [place] [address] [place] [address] MCH 30.5 27.1 - 33.3 pg [facility] Comment:Testing performed by : [facility], [place] [address] MCHC 33.7 32.3 - 35.7 g/dL [facility] Comment:Testing performed by : [facility] [place] [address] RDW CV 14.7 11.1 - 14.9 % [facility] Comment:Testing performed by : [facility] [place] [address] RDW SD 48.9(H) 35.7 - 48.1 fL [facility] Comment:Testing performed by : [facility] [place] [address] NRBC abs 0.00 0.00 - 0.01 K/cumm [facility] Comment:Testing performed by : [facility] [place] [address] ANC Prelim 5.36 1.50 - 6.50 K/cumm [facility] Comment: Interpretive Data The rapid ANC is a preliminary automated count and may vary from the final ANC (Neut Abs) reported in the WBC differential that follows. Current interpretive data was last revised 2024. Testing performed by: [facility],[address] [place] [address] Blood 08/20/2024 11:0 1 AM CDT 08/20/2024 11:12 AM CDT Lorin Barrientos MD LAB BLOOD ORDERABLES F inal Result [facility] [address] [facility] Department [place] [address] * (ABNORMAL) CEA (08/20/2024 11:01 AM CDT) CEA 8.9(H) <=5.0 ng/mL Comment: Interpretive Data Reference Range: Non-Smokers: < or = 3.0 ng/mL Some Smokers may have elevated levels, usually < 5.0 ng/mL The Genoveva CEA assay procedure was used. Results from different manufacturers or methods may not be comparable. Serial testing should be performed using the same method. Testing performed by: [facility], [facility] [facility], [place]., [address] Blood 08/20/2024 11:0 1 AM CDT 08/20/2024 4:37 PM CDT us Lorin Barrientos MD LAB BLOOD ORDERABLES F inal Result [facility] [address] [facility] [place] [address] * Comprehensive metabolic panel (08/20/2024 11:01 AM CDT) Pathologist [facility] Sodium 136 135 - 145 mmol/L Potassium, pl 3.9 3.3 - 4.9 mmol/L [facility] Chloride 102 97 - 110 mmol/L [facility] CO2 24 22 - 32 mmol/L [facility] Anion gap 10 2 - 15 mmol/L [facility] BUN 10 6 - 25 mg/dL [facility] Creatinine 0.81 0.60 - 1.10 mg/dL [facility] Glucose 113 70 - 199 mg/dL [facility] Comment: Interpretive Data Fasting glucose >/= 126 [...] interpretive data was last revised 2022. Calcium 9.3 8.5 - 10.3 mg/dL [facility] Bilirubin, total 0.2 0.1 - 1.2 mg/dL [facility] Protein, pl 6.6 6.5 - 8.5 g/dL [facility] Albumin 4.2 3.5 - 5.0 g/dL [facility] Alk phos 56 40 - 130 Units/L [facility] ALT 18 7 - 45 Units/L [facility] AST 19 10 - 45 Units/L [facility] Blood 08/20/2024 11:0 1 AM CDT 08/20/2024 11:14 AM CDT us Lorin Barrientos MD LAB BLOOD ORDERABLES E dited Result - Final [facility] Department of Laboratories [place] [id number] * Colonoscopy (11/11/2023 11:47 AM CDT) Anatomical Region Laterality Modality Other Narrative Procedure Note Jayson Watters MD - 11/11/2023 11:47 AM CDT ENDOSCOPY LAB Patient Name: Marissa Salcedo Procedure Date: 11/11/2023 11:47 AM Date of : 1970 Admit Type: Outpatient Age: 53 Gender: Female Attending MD: Jayson Watters M.D. Room: [facility] ENDOSCOPY ROOM 05 Note Status: Finalized [...] The scope was passed under direct vision.The [id number] was introduced through the anusand advanced to the ileocolonic anastomosis. The colonoscopy was performed without difficulty. The patient tolerated the procedure well. The qualityof the bowel preparation was evaluated using the BBPS ([place] Bowel Preparation Scale) with scores of:Right Colon [...] following this procedure please call my officeat [phone] to speak to my nurses. After hours and evenings please call [phone] andspeak to the GI fellow international travel consultant. Please tell them that Dr. Watters did your procedure and that your wereinstructed to have the fellow call me or the physiciancovering for me to discuss the management of your condition.If you have an urgent problem, [facility] and have the ER doctor call juan r during the day or the GI Fellow after hours and weekends to arrange admission or transfer to our facility. - Call my nurse Teagan Schultz RN in the GI office at [phone] for your final pathology results in 7 days. Attending Participation: I personally performed the entire procedure. Electronically Signed By: Jayson Watters M.D. Jayson Watters M.D. 11/11/2023 12:10:22 PM Number of Addenda: 0 Note Initiated On: 11/11/2023 11:47 AM us Jayson Watters MD ENDOSCOPY PROCEDURES Final Result * POCT hemoglobin A1c (02/03/2023 12:49 PM CDT) Hgb A1C, POC 5.3 4.0 - 5.6 % [facility] Est Average Gluc POC 105 mg/dL [facility] Comment: The ADA recommends reporting an estimated Average Glucose (eAG) with all Hemoglobin A1c results using the equation derived from a study of 507 normal and diabetic adults. Minority populations were underrepresented and children were not included. (Diabetes Care 31:6669-5574, 2008). The eAG is not equivalent to a fasting glucose. Blood 02/03/2023 12:4 9 PM CDT 02/03/2023 12:49 PM CDT us Notinfile Unknown POINT OF CARE TEST ORDERABLES Final Result [facility] Department [place] [address] * ThinPrep Imaging Pap Reflex HPV mRNA E6/E7 (02/18/2017 9:52 AM CDT) Report status [facility]CELED [facility] Comment:Result canceled by tania yost ancillary Clinical information [facility] [...] has been evaluated with computer assisted technology. Systems Development Manager [facility] [place] Comment: LMT, CT(ASCP) CT screening location: [place] [address] [place] [address] Review cake press operator [facility] Comment:Result canceled by t ritika ancillary Pathologist [facility] Comment:Result canceled by tania yost ancillary 02/18/2017 9:52 AM CDT 02/21/2017 9:57 AM CDT Narrative Resulting Agency Comment Performing Organization Information: Site ID: Name: [facility] Address: [address] [place] [id number] Director: Tanvir Guerra MD us Huma Haile MD LAB PATHOLOGY ORDER LOBO Final Result [facility] [place] from Last 3 Months or Most Recently Relevant to Health Maintenance Insurance [employer] [place] [facility] Advance Directives For more information, please contact: [phone] * Full Code (Latest Code Status on File) Date Activated Date Inactivated Comments 11/11/2023 10:33 AM 11/11/2023 4:52 PM * Full Code Date Activated Date Inactivated Comments 02/10/2023 3:29 PM 02/11/2023 3:49 PM * Full Code Date Activated Date Inactivated Comments 04/16/2022 2:30 PM 04/19/2022 11:02 PM Care Teams Furniture Reproducer Relationship Specialty Start Date End Date Booker Brown MD PCP - General 09/10/15 Leah Tijerina MD [address] [facility] [phone] [place] [address] Surgeon Colon and Rectal Surgery 04/19/22 Lorin Barrientos MD [address] [place] [address] Medical Oncologist Medical Oncology 05/12/22
--- OUTSIDE RECORDS SUMMARY | 2024-09-24 13:36 | XMS_ITS | Referral Summary ---
Author Organization CC [facility] [address] Address [address] [place] [address] Phone Care Team Providers Care Automatic Car Wash Attendant Name Role Phone Booker Brown MD Primary Care Provider [phone] Leah Tijerina MD Unavailable Lorin Barrientos MD Unavailable [phone] Encounters Date Type Department Care Team Description 09/17/2024 12:40 PM CDT - 09/17/2024 11:59 PM CDT Hospital Encounter [facility] [address] [place] [id number] Malignant neoplasm of hepatic flexure (HCC); Abnormal screening mammogram Discharge Disposition: Discharge to home or self care 09/17/2024 11:51 AM CDT - 09/17/2024 11:59 PM CDT Hospital Encounter [facility] [address] [place] [id number] , [facility] Malignant neoplasm of hepatic flexure (HCC); Abnormal screening mammogram Discharge Disposition: Discharge to home or self care 09/14/2024 Telephone [facility] [address] [place] [address] Teagan Bailey 09/07/2024 Orders Only [facility] [address] [place] [address] Kendrick Ashraf 08/31/2024 1:48 PM CDT - 08/31/2024 11:59 PM CDT Hospital Encounter [facility] [address] [place] [address] Malignant neoplasm of hepatic flexure (HCC) Discharge Disposition: Discharge to home or self care 08/28/2024 12:26 PM CDT - 08/28/2024 11:59 PM CDT Hospital Encounter [facility] [address] [place] [address] Malignant neoplasm of hepatic flexure (HCC) Discharge Disposition: Discharge to home or self care 08/20/2024 10:44 AM CDT - 08/20/2024 11:59 PM CDT Hospital Encounter [facility] [address] [place] [address] Malignant neoplasm of hepatic flexure (HCC) Discharge Disposition: Discharge to home or self care 08/20/2024 10:45 AM CDT Clinical Support [facility] [address] [place] [address] Malignant neoplasm of hepatic flexure (HCC) 08/20/2024 11:30 AM CDT Office Visit [facility] [address] [place] [address] Lorin Barrientos MD Malignant neoplasm of hepatic flexure (HCC) (Primary Dx) from Last 3 Months Allergies Active Allergy [...] (03/30/2022): Added automatically from request for surgery [id number] Assessment & Plan (02/11/2023 9:07 AM CDT): Follows with Dr. Barrientos of medical oncology. 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 us Lorin Barrientos MD IMG US [...] by: Amanda Brewer M.D. Lorin Barrientos MD IM MAMMO PROCEDURES F inal Result * CT [...] difficile testing Stool (08/28/2024 9:45 AM CDT) [facility] Result Negative Negative Toxin Result Negative Negative [facility] (JEFE) C. diff result Negative, free toxin Negative, free toxin [facility] TOTH (JEFE) C. diff interp Negative for toxigenic Clostridioides (Clostridium) difficile. Analysis was performed using a glutamate dehydrogenase antigen detection assay combined with a C. difficile toxin detection assay. [facility] TOTH (JEFE) Stool 08/28/2024 9:45 AM CDT 08/28/2024 12:33 PM CDT Lorin Barrientos MD LAB MICROBIOLOGY - GEN ERAL ORDERABLES Final Result [facility]OTH (JEFE) 1 [facility] Department [place] [address] * Stool culture Stool Rectum (08/28/2024 9:45 AM CDT) Direct Specimen Exam Shiga Toxin Testing: Antigen detection assay for Shiga-toxin NEGATIVE for Shiga Toxin 1 and Shiga Toxin 2. Comment:Testing performed by : [facility], [address] [place]., [address] Report Final Report: No growth of enteric bacterial pathogens [facility] TOTH (JEFE) Comment:Testing performed by : [facility], [address] [place]., [address] Stool (Rectum) 08/28/2024 9: 45 AM CDT 08/28/2024 4:38 PM CDT Narrative [facility] TOTH (JEFE) - 09/01/2024 9:30 AM CDT Received in transport media. Testing performed by [facility] ([phone]). Routine stool cultures include procedures to detect Salmonella, Shigella, Edwardsiella, Aeromonas, Pleisiomonas, Campylobacter, Yersinia, E. coli O157, and Shiga-like toxins. Vibrio is cultured only upon special request. If Vibrio is suspected, please call the laboratory at [phone]. Interpretive data was last updated September 20, 2016. Lorin Barrientos MD LAB MICROBIOLOGY - GEN ERAL ORDERABLES Final Result [facility]O TOTH (JEFE) 1 [facility] Department [place] [address] * eGFR (08/20/2024 11:01 AM CDT) eGFR [...] MD LAB BLOOD ORDERABLES F inal Result [facility] [address] [place] [address] * (ABNORMAL) Differential, auto (08/20/2024 11:01 AM CDT) Neutrophil abs 5.36 1.50 - 6.50 K/cumm Comment:Testing performed by : [place] [address] [place] [address] Imm gran abs 0.04 0.00 - 0.10 K/cumm [facility] Comment:Testing performed by : [place] [address] [place] [address] Lymphocyte abs 3.02 0.80 - 3.30 K/cumm [facility] Comment:Testing performed by : [place] [address] [place] [address] Monocyte abs 0.43 0.20 - 0.80 K/cumm [facility] Comment:Testing performed by : [place] [address] [place] [address] Eosinophil abs 0.25 0.00 - 0.50 K/cumm [facility] Comment:Testing performed by : [place] [address] [place] [address] Basophil abs 0.11(H) 0.00 - 0.10 K/cumm [facility] Comment:Testing performed by : [facility],[address], [place] [address] Neutrophil pct 58.2 % [facility] Comment: Interpretive Data Percent cell count reference ranges are not reported, since discordance with absolute values may lead to misinterpretation of CBC data. Current Interpretive Data was last revised on 2017. Testing performed by: [facility],[address], [place] [address] Imm gran pct 0.4 % [facility] Comment: Interpretive Data Percent cell count reference ranges are not reported, since discordance with absolute values may lead to misinterpretation of CBC data. Current Interpretive Data was last revised on 2017. Testing performed by: [facility],[address], [place] [address] Lymphocyte pct 32.8 % [facility] Comment: Interpretive Data Percent cell count reference ranges are not reported, since discordance with absolute values may lead to misinterpretation of CBC data. Current Interpretive Data was last revised on 2017. Testing performed by: [facility],[address], [place] [address] Monocyte pct 4.7 % [facility] Comment: Interpretive Data Percent cell count reference ranges are not reported, since discordance with absolute values may lead to misinterpretation of CBC data. Current Interpretive Data was last revised on 2017. Testing performed by: [facility] [address], [place] [address] Eosinophil pct 2.7 % [facility] Comment: Interpretive Data Percent cell count reference ranges are not reported, since discordance with absolute values may lead to misinterpretation of CBC data. Current Interpretive Data was last revised on 2017. Testing performed by: [facility],[address], [place] [address] Basophil pct 1.2 % [facility] Comment: Interpretive Data Percent cell count reference ranges are not reported, since discordance with absolute values may lead to misinterpretation of CBC data. Current Interpretive Data was last revised on 2017. Testing performed by: [facility],[address] [place] [address] Blood 08/20/2024 11:0 1 AM CDT 08/20/2024 11:12 AM CDT Lorin Barrientos MD LAB BLOOD ORDERABLES F inal Result [facility] [address] [facility] Department [place] [address] * (ABNORMAL) CBC with auto differential (08/20/2024 11:01 AM CDT) WBC 9.21 3.80 - 9.90 K/cumm Comment:Testing performed by : [place] [address] Hgb 13.5 11.9 - 15.5 g/dL [facility] Comment:Testing performed by : [place] [address] Hct 40.1 35.6 - 45.5 % [facility] Comment:Testing performed by : [place] [address] Plt 210 150 - 400 K/cumm [facility] Comment:Testing performed by : [place] [address] MPV 8.6(L) 9.1 - 12.3 fL [facility] Comment:Testing performed by : [place] [address] RBC 4.42 3.90 - 5.20 M/cumm [facility] Comment:Testing performed by : [place] [address] MCV 90.7 81.3 - 96.4 fL [facility] Comment:Testing performed by : [place] [address] MCH 30.5 27.1 - 33.3 pg [facility] Comment:Testing performed by : [place] [address] MCHC 33.7 32.3 - 35.7 g/dL [facility] Comment:Testing performed by : [facility],[address], [place] [address] RDW CV 14.7 11.1 - 14.9 % [facility] Comment:Testing performed by : [facility],[address], [place] [address] RDW SD 48.9(H) 35.7 - 48.1 fL [facility] Comment:Testing performed by : [facility],[address], [place] [address] NRBC abs 0.00 0.00 - 0.01 K/cumm [facility] Comment:Testing performed by : [facility] [address], [place] [address] ANC Prelim 5.36 1.50 - 6.50 K/cumm [facility] Comment: Interpretive Data The rapid ANC is a preliminary automated count and may vary from the final ANC (Neut Abs) reported in the WBC differential that follows. Current interpretive data was last revised 2024. Testing performed by: [facility],[address], [place] [address] Blood 08/20/2024 11:0 1 AM CDT 08/20/2024 11:12 AM CDT us Lorin Barrientos MD LAB BLOOD ORDERABLES F inal Result [facility] [address] [facility] Department [place] [address] * (ABNORMAL) CEA (08/20/2024 11:01 AM CDT) CEA 8.9(H) <=5.0 ng/mL Comment: Interpretive Data Reference Range: Non-Smokers: < or = 3.0 ng/mL Some Smokers may have elevated levels, usually < 5.0 ng/mL The Genoveva CEA assay procedure was used. Results from different manufacturers or methods may not be comparable. Serial testing should be performed using the same method. Testing performed by: [facility], [address] [place] [address], [place]., [address] Blood 08/20/2024 11:0 1 AM CDT 08/20/2024 4:37 PM CDT Lorin Barrientos MD LAB BLOOD ORDERABLES F inal Result [facility] [address] [facility] Department [place] [address] * Comprehensive metabolic panel (08/20/2024 11:01 AM CDT) Sodium 136 135 - 145 mmol/L Potassium, pl 3.9 3.3 - 4.9 mmol/L [facility] Chloride 102 97 - 110 mmol/L [facility] CO2 24 22 - 32 mmol/L [facility] Anion gap 10 2 - 15 mmol/L [facility] BUN 10 6 - 25 mg/dL [facility] Creatinine 0.81 0.60 - 1.10 mg/dL [facility] Glucose 113 70 - 199 mg/dL [facility] Comment: Interpretive Data Fasting glucose >/= [...] ORDERABLES E dited Result - Final [facility] [address] [place] [address] * Colonoscopy (11/11/2023 11:47 AM CDT) Anatomical Region Laterality Modality Other Narrative Procedure Note Jayson Watters MD - 11/11/2023 11:47 AM CDT ENDOSCOPY LAB Patient Name: Marissa Salcedo Procedure Date: 11/11/2023 11:47 AM Date of : 1970 Admit Type: Outpatient Age: 53 Gender: Female Attending MD: Jayson Watters M.D. Room: [facility] ENDOSCOPY ROOM 05 Note Status: Finalized Procedure: [...] The scope was passed under direct vision.The [id number] was introduced through the anusand advanced to the ileocolonic anastomosis. The colonoscopy was performed without difficulty. The patient tolerated the procedure well. The qualityof the bowel preparation was evaluated using the BBPS (Houston Bowel Preparation Scale) with scores of:Right Colon [...] following this procedure please call my officeat [phone] to speak to my nurses. After hours and evenings please call [phone] andspeak to the GI fellow senior solutions architect. Please tell them that Dr. Watters did your procedure and that your wereinstructed to have the fellow call me or the physiciancovering for me to discuss the management of your condition.If you have an urgent problem, [facility] and have the ER doctor call juan r during the day or the GI Fellow after hours and weekends to arrange admission or transfer to our facility. - Call my nurse Teagan Schultz RN in the GI office at [phone] for your final pathology results in 7 days. Attending Participation: I personally performed the entire procedure. Electronically Signed By: Jayson Watters M.D. Jayson Watters M.D. 11/11/2023 12:10:22 PM Number of Addenda: 0 Note Initiated On: 11/11/2023 11:47 AM us Jayson Watters MD ENDOSCOPY PROCEDURES Final Result * POCT hemoglobin A1c (02/03/2023 12:49 PM CDT) Hgb A1C, POC 5.3 4.0 - 5.6 % [facility] Est Average Gluc POC 105 mg/dL [facility] Comment: The ADA recommends reporting an estimated Average Glucose (eAG) with all Hemoglobin A1c results using the equation derived from a study of 507 normal and diabetic adults. Minority populations were underrepresented and children were not included. (Diabetes Care 31:2375-1134, 2008). The eAG is not equivalent to a fasting glucose. Blood 02/03/2023 12:4 9 PM CDT 02/03/2023 12:49 PM CDT us Notinfile Unknown POINT OF CARE TEST ORDERABLES Final Result [facility] Department [place] [address] * ThinPrep Imaging Pap Reflex HPV mRNA E6/E7 (02/18/2017 9:52 AM CDT) Report status [facility] Comment:Result canceled by tania yost ancillary Clinical information [facility] [place] Comment:Information not prov ided [...] has been evaluated with computer assisted technology. Director Of Front Office [facility] - Comment: LMT, CT(ASCP) CT screening location: [place] [address] [place] [address] Review buffing turner and counter [facility] Comment:Result canceled by t ritika ancillary Pathologist [facility] Comment:Result canceled by tania yost ancillary 02/18/2017 9:52 AM CDT 02/21/2017 9:57 AM CDT Narrative Resulting Agency Comment Performing Organization Information: Site ID: Name: [facility] Address: [address] [place] [address] Director: Tanvir Guerra MD Huma Haile MD LAB PATHOLOGY ORDER LOBO Final Result [facility] [place] from Last 3 Months or Most Recently Relevant to Health Maintenance Insurance [employer] [place] [facility] Advance Directives For more information, please contact: [phone] * Full Code (Latest Code Status on File) Date Activated Date Inactivated Comments 11/11/2023 10:33 AM 11/11/2023 4:52 PM * Full Code Date Activated Date Inactivated Comments 02/10/2023 3:29 PM 02/11/2023 3:49 PM * Full Code Date Activated Date Inactivated Comments 04/16/2022 2:30 PM 04/19/2022 11:02 PM Care Teams Automatic Car Wash Attendant Relationship Specialty Start Date End Date Booker Brown MD PCP - General 09/10/15 Leah Tijerina MD [address] [facility] [phone] [place] [address] Surgeon Colon and Rectal Surgery 04/19/22 Lorin Barrientos MD [address] [place] [address] Medical Oncologist Medical Oncology 05/12/22
--- OUTSIDE RECORDS SUMMARY | 2024-09-24 13:36 | XMS_ITS ---
Author Organization [facility] [address] Address [address] [place] [address] Phone Care Team Providers Care Numerical Control Programmer Name Role Phone Booker Brown MD Primary [...] (03/30/2022): Added automatically from request for surgery [id number] Assessment & Plan (02/11/2023 9:07 AM CDT): Follows with Dr. Barrientos of medical oncology. 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 Past [...] Treatment Summaries Malignant neoplasm of hepatic flexure (HCC)* Images from the original note were not included. [address] [address] This Survivorship Care Plan is a cancer [...] Information: Primary Care Physician Booker Brown MD [phone] Surgeon Leah Tijerina MD Radiation Oncologist No care clinical team lead to display Medical Oncologist Lorin Barrientos MD Multimedia Programmer No care clinical team lead to display Other Providers Treatment Summary Cancer [...] Medical oncology and Surgeon if both are [facility]) History and Physical every 3 months [...] Help learning to eat healthier, call the hvac/r service technician at: [facility] . Have an active lifestyle, strive for [...] physician. Resources you may be interested in: [facility] [place] [facility] http://[email or web address]/ [facility] Information [facility] 1st floor of [facility] [phone]. Computer access, educational material, counseling services (FREE) [employer] Ost[employer] Association: the place for ostomy resources, advocacy, and support. www.ostomy.org The ostomy nurse at [facility] can be reached at [phone] Online Resources: www.cancer.net; http://www.cdc.gov/cancer/survivorship; http://www.cancercare.org/tagged/post-treatment_survivorship; http://www.cancer.gov/about-cancer/coping/survivorship [employer]: https://survivorship.cancer.gov/ an online tool for cancer survivors andcaregivers created by the [place] and the National Cancer Churdan. It provides: Information on dealing with side [...] (04/07/2022): Added automatically from request for surgery [id number]
--- OUTSIDE RECORDS SUMMARY | 2024-09-24 13:36 | XMS_ITS | Encounter Summary ---
Author Organization [facility] Address [address] [place] [address] Phone Care Team Providers Care Lead Front Desk Agent Name Role Phone Booker Brown MD Primary Care Provider [phone] Leah Tijerina MD Unavailable [phone] Lorin Barrientos MD Unavailable + [phone] Encounter Details Date Type Department Care Team (Late st Contact Info) Description 2023 Orders Only [facility] [place] [facility] [address] [facility] Advanced Medicine 12th [place] [address] [place] [address] Charlotte Oh RN Social History [...] on file 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 difficile suspected 08/20/2024 08/28/202408/21 3:05 AM CDT C. difficile suspected 08/28/2024 08/28/202408/28 2:26 PM CDT documented as of this encounter Care Teams Lead Front Desk Agent Relationship Specialty Start Date End Date Booker Brown MD PCP - General 09/10/15 Leah Tijerina MD [address] [phone] [place] [address] Surgeon Colon and Rectal Surgery 04/19/22 Lorin Barrientos MD [address] [place] [address] Medical Oncologist Medical Oncology 05/12/22 documented as of this encounter
--- OUTSIDE RECORDS SUMMARY | 2024-09-24 13:36 | XMS_ITS | Encounter Summary ---
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
[2024-09-24 13:38] VITALS: BP 129/75; PULSE 87; RESP 20; TEMP 36.4; O2SAT 99
--- NOTE | 2024-09-24 13:53 | ED.URI ---
HPI - URI/Sore Throat General Chief Complaint: Ear Stated Complaint: congestion,bilateral ear discomfort,vomiting Related Data Allergies Allergy/AdvReac Type Severity Reaction Status Date / Time Penicillins Allergy Severe Swelling Verified 09/24/24 13:43 of Lip/Tongue/Throat tetracycline Allergy Intermediate Rash Verified 09/24/24 13:43 [facility] Past Medical History Medical History (Updated 07/05/24 @ 08:28 by Stacey Biggs APRN) Cough present for greater than 3 weeks COPD exacerbation BMI 33.0-33.9,adult BMI 32.0-32.9,adult Cholecystectomy planned Influenza A Right knee pain Abdominal pain Cholecystitis Insomnia Diarrhea Painful paresthesia Otitis externa Hyperlipidemia Hypertension Flank pain Dental abscess Anxiety disorder, unspecified Major depressive disorder, single episode, unspecified Reflux esophagitis Uncontrolled type 2 diabetes mellitus without complication Surgical History Surgical History History of colon resection History of colonoscopy Family History Family History Grandparent Hypertension Cerebrovascular accident Family history of coronary artery disease Mother Hypertension Family history of coronary artery disease COPD (chronic obstructive pulmonary disease) Heart disease Father Acute myocardial infarction Heart disease Sibling Carcinoma of colon Half brother Sibling No problems noted. Social History Social History Smoking packs per day: 1.5 Smoking cigarettes per day: 30.0 Years smoked: 36 Smoking pack-years: 54.00 Smoking status: Current every day smoker Tobacco type: cigarettes Second hand tobacco smoke exposure: Yes Alcohol intake: never Substance use: never Substance use type: does not use Lack of Transportation: No Lack of Food: Never True Current Housing: I Have Housing Concerned About Future Housing: No Difficulty Paying Gas/Electric Bills: No Difficulty Paying for Meds: No Currently Unemployed: No Education: Grade School Difficulty w/ Childcare or Family Care: No Living arrangements: with family Occupation/Education: occupation 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[employer] Gender identity (if verbalized by the patient): Female Spiritual care concerns: No Course Vital Signs Vital signs: Vital Signs Temperature 36.4 C 09/24/24 13:38 Pulse Rate 87 09/24/24 13:38 Respiratory Rate 20 09/24/24 13:38 Blood Pressure 129/75 09/24/24 13:38 Pulse Oximetry 99 09/24/24 13:38 Oxygen Delivery Room Air 09/24/24 13:38 Temperature 36.4 C 09/24/24 13:38 Pulse Rate 87 09/24/24 13:38 Respiratory Rate 20 09/24/24 13:38 Blood Pressure 129/75 09/24/24 13:38 Pulse Oximetry 99 09/24/24 13:38 Oxygen Delivery Room Air 09/24/24 13:38 Discharge Plan Discharge Patient Language: South Korean Prescriptions: No Action duloxetine [Cymbalta] 30 mg capsule,delayed release(DR/EC) 30 mg PO DAILY Qty: 90 4RF metformin 1,000 mg tablet 1,000 mg PO BID Qty: 180 1RF benazepril 10 mg tablet See Rx Instructions .ROUTE .COMPLEX Qty: 90 1RF Dose Instruction: TAKE 1 TABLET BY MOUTH DAILY Rx Instructions: TAKE 1 TABLET BY MOUTH DAILY Breztri Aerosphere 160-9-4.8 mcg/actuation HFA aerosol inhaler 2 inh inhalation BID Qty: 10.7 2RF trazodone 50 mg tablet 100 mg PO QHS Qty: 180 2RF rosuvastatin [Crestor] 20 mg tablet 20 mg PO DAILY Qty: 90 3RF bupropion HCl 150 mg tablet extended release 24 hr 150 mg PO QAM Qty: 90 0RF buspirone 10 mg tablet 10 mg PO BID Qty: 180 3RF alprazolam [Xanax] 0.5 mg tablet 0.5 mg PO DAILY PRN (Reason: anxiety) Qty: 60 0RF Follow-up/Referrals: Booker Brown MD [Primary Care Provider] -
--- NOTE | 2024-09-24 13:56 | ED_ITS ---
HPI - General Adult General Chief complaint: Ear Stated complaint: congestion,bilateral ear discomfort,vomiting Time Seen by Provider: 09/24/24 13:53 Source: patient, RN notes reviewed and old records reviewed Mode of arrival: ambulatory Limitations: no limitations History of Present Illness HPI narrative: 54 year old female presents to express care today with complaints of head and nasal congestion for the past 8 days with right ear feeling clogged with cough noted/ Patient has history of sinusitis, and COPD and continues to use tobacco daily. Patient reports that she has been coughing up and blowing yellow drainage from her sinuses. Patient reports that she has been taking Mucinex, DayQuil and NyQuil for her symptoms. Patient reports that she has had some discomfort to upper left abdomen has appointment with urologist towards end of September. Patient reports that she has history of colon and kidney cancer in 2021. MD complaint: sinus congestion drainage and cough with right ear feeling clogged Onset (ago): day(s) (8) Severity scale (1-10): 5 Quality: aching Treatments prior to arrival: other (Mucinex DayQuil and NyQuil) Related Data Allergies Allergy/AdvReac Type Severity Reaction Status Date / Time Penicillins Allergy Severe Swelling Verified 09/24/24 13:43 of Lip/Tongue/Throat tetracycline Allergy Intermediate Rash Verified 09/24/24 13:43 Review of Systems Review of Systems: CONSTITUTIONAL: Denies fever, chills, or sweats. EYES: Denies visual changes, redness, or discharge. ENT: reports rhinorrhea, congestion,no sore throat, right otalgia. CARDIOVASCULAR: Denies chest pain, palpitations, or edema. RESPIRATORY: reports cough denies any dyspnea. GASTROINTESTINAL: states some intermittent left upper quadrant abdominal pain, nausea, no vomiting, or diarrhea. GENITOURINARY: Denies dysuria or hematuria. SKIN: Denies rash or itching. MUSCULOSKELETAL: Denies back pain, joint pain, or myalgia. NEUROLOGIC: Denies headache, numbness, or weakness. PSYCHIATRIC: Positive anxiety or depression. All systems reviewed & are unremarkable except as noted in HPI and below PMFSH Past Medical History Medical History Cough present for greater than 3 weeks COPD exacerbation BMI 33.0-33.9,adult BMI 32.0-32.9,adult Cholecystectomy planned Influenza A Right knee pain Abdominal pain Cholecystitis Insomnia Diarrhea Painful paresthesia Otitis externa Hyperlipidemia Hypertension Flank pain Dental abscess Anxiety disorder, unspecified Major depressive disorder, single episode, unspecified Reflux esophagitis Uncontrolled type 2 diabetes mellitus without complication Surgical History Surgical History History of colon resection History of colonoscopy Family History Family History Grandparent Hypertension Cerebrovascular accident Family history of coronary artery disease Mother Hypertension Family history of coronary artery disease COPD (chronic obstructive pulmonary disease) Heart disease Father Acute myocardial infarction Heart disease Sibling Carcinoma of colon Half brother Sibling No problems noted. Social History Social History Smoking packs per day: 1.5 Smoking cigarettes per day: 30.0 Years smoked: 36 Smoking pack-years: 54.00 Smoking status: Current every day smoker Tobacco type: cigarettes Second hand tobacco smoke exposure: Yes Alcohol intake: never Substance use: never Substance use type: does not use Lack of Transportation: No Lack of Food: Never True Current Housing: I Have Housing Concerned About Future Housing: No Difficulty Paying Gas/Electric Bills: No Difficulty Paying for Meds: No Currently Unemployed: No Education: Grade School Difficulty w/ Childcare or Family Care: No Living arrangements: with family Occupation/Education: occupation 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 There is no relevant family history pertinent to the presenting complaint Exam Narrative: GENERAL: Well-appearing, well-nourished, and in no acute distress. HEAD: Normocephalic, atraumatic. EYES: PERRLA and EOMI. ENT: Nares red, yellow rhinorrhea or epistaxis. Mucous membranes moist.TM's normal with good light reflex, throat pink with no swelling NECK: Supple. no lymphadenopathy CHEST: Clear to auscultation. No respiratory distress. acute productive cough SAO2 99% on room air HEART: Regular rate and rhythm. No murmur heard. Normal peripheral pulses. ABDOMEN: Soft, reports some tenderness intermittent left upper abdomen , nondistended, normal active bowel sounds. reports some nausea, no vomiting or diarrhea, no swelling of abdomen noted. EXTREMITIES: Normal range of motion. No edema. SKIN: Warm, dry, no rash. NEURO: No focal deficits. Alert and oriented x3. Course Course Emergency Course: Patient is aware of diagnosis, understands and agrees to treatment plan.? Anticipatory guidance given.? Patient agrees to follow-up as directed and is aware of reasons to seek care at the emergency department. Portions of this record may have been created with voice recognition software Level of Care: Express Care Visit Vital Signs Vital signs: Vital Signs Temperature 36.4 C 09/24/24 13:38 Pulse Rate 87 09/24/24 13:38 Respiratory Rate 20 09/24/24 13:38 Blood Pressure 129/75 09/24/24 13:38 Pulse Oximetry 99 09/24/24 13:38 Oxygen Delivery Room Air 09/24/24 13:38 Temperature 36.4 C 09/24/24 13:38 Pulse Rate 87 09/24/24 13:38 Respiratory Rate 20 09/24/24 13:38 Blood Pressure 129/75 09/24/24 13:38 Pulse Oximetry 99 09/24/24 13:38 Oxygen Delivery Room Air 09/24/24 13:38 Reviewed Medical Decision Making MDM Narrative Medical decision making narrative: Exam findings and imaging show no acute concerns or changes; patient is non- toxic appearing and is in no distress.? Patient is appropriate for outpatient treatment and follow-up Differential Diagnosis Differential Diagnosis: URI, sinusitis, acute cough, bronchitis, otitis media, intermittent left abdomen discomfort Medical Records Medical records reviewed: Yes I reviewed the external patient's medical records. Vital Signs Vital Signs: Vital Signs Temperature 36.4 C 09/24/24 13:38 Pulse Rate 87 09/24/24 13:38 Respiratory Rate 20 09/24/24 13:38 Blood Pressure 129/75 09/24/24 13:38 Pulse Oximetry 99 09/24/24 13:38 Oxygen Delivery Room Air 09/24/24 13:38 Temperature 36.4 C 09/24/24 13:38 Pulse Rate 87 09/24/24 13:38 Respiratory Rate 20 09/24/24 13:38 Blood Pressure 129/75 09/24/24 13:38 Pulse Oximetry 99 09/24/24 13:38 Oxygen Delivery Room Air 09/24/24 13:38 reviewed Critical Care Time Critical Care Time Critical Care Time: No Discharge Plan Discharge Clinical Impression: Acute cough Sinusitis Qualifiers: Sinusitis location: pansinusitis Chronicity: acute Recurrence: not specified as recurrent Qualified Code(s): J01.40 - Acute pansinusitis, unspecified Patient Disposition: Home Condition: Stable Instructions: Antibiotic Form, Sinusitis (ED) Additional Instructions: Increase fluids especially juices and water [id number] cough and cold medicine of your choice for your symptoms Zyrtec Claritin or Pavithra daily include Coricidin brand decongestant Continue your inhaler/nebulizer as directed Steroids as directed--take with food heat to the face 20-30 minutes 4-6 times a day for pain Salt water gargles, throat lozenges or throat sprays as desired Antibiotic as directed--finished the medication Tylenol or ibuprofen for any fever pain If your symptoms persist, change or worsen significantly before you can contact your personal physician then please, without delay, go to the emergency department for further evaluation. Follow-up with PCP in 7-10 days or sooner if needed Follow up with PCP soon in regards to your blood pressure which is elevated above threshold for referral. Blood pressure above 120/80 may indicate pre- hypertension. Minimal systolic elevation 129/75 Patient Language: Nicaraguan Prescriptions: New azithromycin 500 mg tablet 500 mg PO DAILY 5 Days Qty: 5 0RF prednisone 20 mg tablet 40 mg PO DAILY 5 Days Qty: 10 0RF No Action duloxetine [Cymbalta] 30 mg capsule,delayed release(DR/EC) 30 mg PO DAILY Qty: 90 4RF metformin 1,000 mg tablet 1,000 mg PO BID Qty: 180 1RF benazepril 10 mg tablet See Rx Instructions .ROUTE .COMPLEX Qty: 90 1RF Dose Instruction: TAKE 1 TABLET BY MOUTH DAILY Rx Instructions: TAKE 1 TABLET BY MOUTH DAILY Breztri Aerosphere 160-9-4.8 mcg/actuation HFA aerosol inhaler 2 inh inhalation BID Qty: 10.7 2RF trazodone 50 mg tablet 100 mg PO QHS Qty: 180 2RF rosuvastatin [Crestor] 20 mg tablet 20 mg PO DAILY Qty: 90 3RF bupropion HCl 150 mg tablet extended release 24 hr 150 mg PO QAM Qty: 90 0RF buspirone 10 mg tablet 10 mg PO BID Qty: 180 3RF alprazolam [Xanax] 0.5 mg tablet 0.5 mg PO DAILY PRN (Reason: anxiety) Qty: 60 0RF Follow-up/Referrals: Booker Brown MD [Primary Care Provider] - Stand Alone Forms: Work/School Release IP Time of Disposition: 14:18 Quality [place] Coma Scale Eyes: Open Verbal: Oriented and Alert Motor: Follows Commands [place] Coma Total Score: 15
== END 2024-09-24 14:25 | disposition home or self-care (01) ==
PROVIDERS: Emergency Provider Registered Nurse; PCP Family Medicine
DX: R05.1 Acute cough (principal); J01.40 Acute pansinusitis, unspecified; F17.210 Nicotine dependence, cigarettes, uncomplicated; J44.9 Chronic obstructive pulmonary disease, unspecified; E78.5 Hyperlipidemia, unspecified; E11.9 Type 2 diabetes mellitus without complications; Z79.84 Long term (current) use of oral hypoglycemic drugs; I10 Essential (primary) hypertension; K21.00 Gastro-esophageal reflux disease with esophagitis, without bleeding; F41.9 Anxiety disorder, unspecified; F32.9 Major depressive disorder, single episode, unspecified; Z85.038 Personal history of other malignant neoplasm of large intestine; Z85.528 Personal history of other malignant neoplasm of kidney
CPT/HCPCS: 99213; G0463

== ENCOUNTER 2024-10-18 13:20 | Emergency (ER) | payer SELFPAY ==
[2024-10-18 13:25] VITALS: BP 130/76; PULSE 80; RESP 16; TEMP 36.2; O2SAT 100
--- NOTE | 2024-10-18 13:30 | ED.EAR ---
HPI - Ear Problem General Chief complaint: Ear Stated complaint: Right Ear Infection Time Seen by Provider: 10/18/24 13:30 Source: patient and RN notes reviewed Mode of arrival: ambulatory Limitations: no limitations History of Present Illness HPI Narrative: 54-year-old female presents Express Care complaining of redness, swelling, pain to her right ear for 5 days. Patient notes she saw redness and swelling to the outside of her ear is tender to touch. Patient also reports having purulent discharge coming from her ear. Patient also reports feeling febrile. Patient denies any hearing changes, pain, redness, or swelling behind behind her left ear, or any other upper respiratory symptoms. Patient was recently here and treated for sinusitis with azithromycin and states her symptoms have improved. Patient has yet to see an ENT for her persistent problems with her ears and sinuses. Related Data Home Medications ?Medication ?Instructions ?Recorded ?Confirmed ?Last Taken ?Type albuterol sulfate 90 mcg/actuation inhalation 10/18/24 Unknown History aerosol inhaler Allergies Allergy/AdvReac Type Severity Reaction Status Date / Time Penicillins Allergy Severe Swelling Verified 10/18/24 13:30 of Lip/Tongue/Throat tetracycline Allergy Intermediate Rash Verified 10/18/24 13:30 Review of Systems Review of Systems: CONSTITUTIONAL: Denies fever, chills, body aches, or sweats. EYES: Denies visual changes, redness, or discharge. ENT: Negative for rhinorrhea, congestion, sore throat. Positive for otalgia, ear swelling, dear discharge CARDIOVASCULAR: Denies chest pain, palpitations, or edema. RESPIRATORY: Negative for cough, wheezing, dyspnea. GASTROINTESTINAL: Denies abdominal pain, nausea, vomiting, or diarrhea. GENITOURINARY: Denies dysuria or hematuria. SKIN: Denies rash or itching. MUSCULOSKELETAL: Denies back pain, joint pain, or myalgia. NEUROLOGIC: Denies headache, numbness, or weakness. PSYCHIATRIC: Denies anxiety or depression. All other systems reviewed are negative, except as documented in HPI. [facility] Past Medical History Medical History Cough present for greater than 3 weeks COPD exacerbation BMI 33.0-33.9,adult BMI 32.0-32.9,adult Cholecystectomy planned Influenza A Right knee pain Abdominal pain Cholecystitis Insomnia Diarrhea Painful paresthesia Otitis externa Hyperlipidemia Hypertension Flank pain Dental abscess Anxiety disorder, unspecified Major depressive disorder, single episode, unspecified Reflux esophagitis Uncontrolled type 2 diabetes mellitus without complication Surgical History Surgical History History of colon resection History of colonoscopy Family History Family History Grandparent Hypertension Cerebrovascular accident Family history of coronary artery disease Mother Hypertension Family history of coronary artery disease COPD (chronic obstructive pulmonary disease) Heart disease Father Acute myocardial infarction Heart disease Sibling Carcinoma of colon Half brother Sibling No problems noted. Social History Social History Smoking packs per day: 1.5 Smoking cigarettes per day: 30.0 Years smoked: 36 Smoking pack-years: 54.00 Smoking status: Current every day smoker Tobacco type: cigarettes Second hand tobacco smoke exposure: Yes Alcohol intake: never Substance use: never Substance use type: does not use Lack of Transportation: No Lack of Food: Never True Current Housing: I Have Housing Concerned About Future Housing: No Difficulty Paying Gas/Electric Bills: No Difficulty Paying for Meds: No Currently Unemployed: No Education: Grade School Difficulty w/ Childcare or Family Care: No Living arrangements: with family Occupation/Education: occupation 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 There is no relevant family history pertinent to the patient complaint. Exam Narrative: GENERAL: This is a well-nourished, well-developed adult, in no apparent distress. They are non ill-appearing, nontoxic appearing. HEAD: normocephalic, atraumatic. EYES: Sclera clear/white. Vision is grossly intact. Conjunctiva normal bilaterally. Extraocular movements intact. EARS: Left External ear normal, right external ear is is tender and erythematous near the antitragus with purulent discharge. There is no redness or swelling behind the right ear, no ear protrusion ,no mastoid tenderness. Left auditory canals clear and without drainage, right auditory canal is erythematous without exudate. TMs with good cone of light, pearly hernadez, without erythema or perforation. Hearing grossly intact. NOSE: External nose normal with no obvious nasal discharge, nasal turbinates without redness or swelling, no rhinorrhea. THROAT: Mucous membranes moist, posterior pharynx pink and clear without redness, swelling, or exudate. Uvula is midline. NECK: Neck supple, non-tender without lymphadenopathy, masses or thyromegaly. CARDIOVASCULAR: Regular rate and rhythm without murmurs, gallops, or rubs. RESPIRATORY: Clear to auscultation. Breath sounds equal bilaterally. No wheezes, rales, or rhonchi. SKIN: warm, Dry, intact with no suspicious lesions or rash, good texture and turgor. NEURO: awake, alert, and oriented to person, place and time. There were no obvious focal neurologic abnormalities. EXTREMITIES: No joint tenderness, effusion, or edema noted. Course Course Emergency Course: Portions of this record may have been created with voice recognition software Level of Care: Express Care Visit Vital Signs Vital signs: Vital Signs Temperature 97.2 F L 10/18/24 13:25 Pulse Rate 80 10/18/24 13:25 Respiratory Rate 16 10/18/24 13:25 Blood Pressure 130/76 10/18/24 13:25 Pulse Oximetry 100 10/18/24 13:25 Oxygen Delivery Room Air 10/18/24 13:25 Temperature 97.2 F L 10/18/24 13:25 Pulse Rate 80 10/18/24 13:25 Respiratory Rate 16 10/18/24 13:25 Blood Pressure 130/76 10/18/24 13:25 Pulse Oximetry 100 10/18/24 13:25 Oxygen Delivery Room Air 10/18/24 13:25 Medical Decision Making MDM Narrative Medical decision making narrative: Patient likely has otitis externa with cellulitis of the auricle. No evidence of mastoiditis. Will treat with oral levofloxacin and ofloxacin ear drops. Patient has anaphylactic reaction to penicillins. Discussed physical exam findings. Advised supportive measures and signs/symptoms to go to the ER. Pt is appropriate for outpt treatment and f/u. Differential Diagnosis Differential Diagnosis: Otitis externa, otitis media, mastoiditis, cellulitis Vital Signs Vital Signs: Vital Signs Temperature 97.2 F L 10/18/24 13:25 Pulse Rate 80 10/18/24 13:25 Respiratory Rate 16 10/18/24 13:25 Blood Pressure 130/76 10/18/24 13:25 Pulse Oximetry 100 10/18/24 13:25 Oxygen Delivery Room Air 10/18/24 13:25 Temperature 97.2 F L 10/18/24 13:25 Pulse Rate 80 10/18/24 13:25 Respiratory Rate 16 10/18/24 13:25 Blood Pressure 130/76 10/18/24 13:25 Pulse Oximetry 100 10/18/24 13:25 Oxygen Delivery Room Air 10/18/24 13:25 Discharge Plan Discharge Clinical Impression: Cellulitis of auricle of right ear Otitis externa Qualifiers: Otitis externa type: unspecified type Chronicity: acute Laterality: right Qualified Code(s): H60.501 - Unspecified acute noninfective otitis externa, right ear Patient Disposition: Home Condition: Stable Instructions: Antibiotic Form, Cellulitis (ED), Ear Infection (GEN) Additional Instructions: Take levofloxacin as directed. Take antibiotic drops as directed. Tylenol and ibuprofen every 8 hours as needed to reduce fever, pain Avoid water or anything into the ear tell your ear has healed. Avoid Q-tips in your ear. Follow up with your personal physician for further evaluation and treatment within 3-5days. If you develop worsening symptoms, redness or swelling behind your ear, fevers or any other concerns please go to the ER immediately. Patient Language: Telugu Prescriptions: New levofloxacin 750 mg tablet 750 mg PO DAILY 7 Days Qty: 7 0RF ofloxacin 0.3 % drops 10 drp RIGHT EAR DAILY 7 Days Qty: 10 0RF No Action albuterol sulfate 90 mcg/actuation HFA aerosol inhaler INHALATION duloxetine [Cymbalta] 30 mg capsule,delayed release(DR/EC) 30 mg PO DAILY Qty: 90 4RF metformin 1,000 mg tablet 1,000 mg PO BID Qty: 180 1RF benazepril 10 mg tablet See Rx Instructions .ROUTE .COMPLEX Qty: 90 1RF Dose Instruction: TAKE 1 TABLET BY MOUTH DAILY Rx Instructions: TAKE 1 TABLET BY MOUTH DAILY Breztri Aerosphere 160-9-4.8 mcg/actuation HFA aerosol inhaler 2 inh inhalation BID Qty: 10.7 2RF trazodone 50 mg tablet 100 mg PO QHS Qty: 180 2RF rosuvastatin [Crestor] 20 mg tablet 20 mg PO DAILY Qty: 90 3RF bupropion HCl 150 mg tablet extended release 24 hr 150 mg PO QAM Qty: 90 0RF buspirone 10 mg tablet 10 mg PO BID Qty: 180 3RF alprazolam [Xanax] 0.5 mg tablet 0.5 mg PO DAILY PRN (Reason: anxiety) Qty: 60 0RF Follow-up/Referrals: Booker Brown MD [Primary Care Provider] - Time of Disposition: 13:45
--- OUTSIDE RECORDS SUMMARY | 2024-10-18 13:58 | XMS_ITS | Clinical Summary ---
Author Organization [facility] [address] Address [address] [place] [address] Phone Care Team Providers Care Senior Microstrategy Developer Name Role Phone Booker Brown MD Primary Care Provider [phone] Leah Tijerina MD Unavailable [phone] Lorin Barrientos MD Unavailable + [phone] Allergies Active Allergy Reactions Criticality Noted Date [...] (10 mg total) by mouth daily Active Active Problems Problem Noted Date Diagnosed [...] (03/30/2022): Added automatically from request for surgery [id number] Assessment & Plan (02/11/2023 9:07 AM CDT): Follows with Dr. Barrientos of medical oncology. 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 She is now s/p [...] (04/07/2022): Added automatically from request for surgery [id number] Encounters Date Type Department Care Team Description 10/09/2024 9:40 AM CDT [facility] Urology [address] [facility] 11th [place] [address] [place] [address] Serene Douglass MD Renal mass 09/17/2024 12:40 PM CDT - 09/17/2024 11:59 PM CDT Hospital Encounter [facility] [address] [place] [address] Malignant neoplasm of hepatic flexure (HCC); Abnormal screening mammogram Discharge Disposition: Discharge to home or self care 09/17/2024 11:51 AM CDT - 09/17/2024 11:59 PM CDT Hospital En[facility] [address] [place] [address] , [facility] Malignant neoplasm of hepatic flexure (HCC); Abnormal screening mammogram Discharge Disposition: Discharge to home or self care 09/14/2024 Telephone [facility] [address] [place] [address] Teagan Bailey 09/07/2024 Orders Only [facility] Oncology [address] [place] [address] Kendrick Ashraf 08/31/2024 1:48 PM CDT - 08/31/2024 11:59 PM CDT Hospital Encounter [facility] [address] [place] [address] Malignant neoplasm of hepatic flexure (HCC) Discharge Disposition: Discharge to home or self care 08/28/2024 12:26 PM CDT - 08/28/2024 11:59 PM CDT Hospital Encounter [address] [address] Malignant neoplasm of hepatic flexure (HCC) Discharge Disposition: Discharge to home or self care 08/20/2024 11:30 AM CDT Office Visit [facility] Oncology [address] [place] [address] Lorin Barrientos MD Malignant neoplasm of hepatic flexure (HCC) (Primary Dx) 08/20/2024 10:45 AM CDT Clinical Support [facility] [address] [place] [address] Malignant neoplasm of hepatic flexure (HCC) 08/20/2024 10:44 AM CDT - 08/20/2024 11:59 PM CDT Hospital Encounter [facility] [place] [address] [place] [address] Malignant neoplasm of hepatic flexure (HCC) Discharge [...] Added automatica lly from request for surgery [id number] Cancer (HCC) 02/12/2022 Diabetes mellitus (HCC) 2014 [...] Maternal Grandmother Leigh Turnbeaugh Stroke Maternal Grandmother Leihg Shaffer COD Vision loss Maternal Grandmother Leigh Shaffer Arthritis Mother Yola Hoyos COPD Mother Yola Hoyos Depression Mother Yola Hoyos Diabetes Mother Yola Hoyos Heart attack Mother Yola Hoyos Heart disease Mother Yola Hoyos Heart failure Mother Yola Hoyos Hypertension Mother Yola Hoyos Kidney failure Mother Yola Hoyos COD Mental illness Mother Yola Hoyos Obesity Mother Yola Hoyos Cancer Mother's Brother 1 Edfreida Turnbeaugh Prostate cancer Mother's Brother 1 Edfreida Turnbeaugh Arthritis Mother's Brother 2 Juma Johnson Turnbeaugh Depression Mother's Brother 2 Juma Alex Turnbeaugh Arthritis Mother's Sister Kassy Turnbeauroberto Depression Mother's Sister Kassy Turnbeauroberto Obesity Mother's Sister Kassy Turnbeauroberto Depression Sister Marzena Popldaniel Mental illness Sister Marzena Popldaniel Anesthesia problems Neg Hx Relation Name Status Comments Daughter 1 Valentina Torrezon Daughter 2 Pauline Farias Father Jairo hoyos Maternal Grandfather Juma Shaffer Maternal Grandmother Leigh Shaffer Mother Yola Hoyos Mother's Brother 1 Ion Turnbeauroberto Mother's Brother 2 Juma Johnson Turnbeauroberto Mother's Sister Kassy Turnjeanineauroberto Sister Marzena Popldaniel Social History Tobacco Use Types Packs/Day Years [...] on file 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 us Lorin Barrientos MD IM US PROCEDURES Kathy l Result * Diagnostic [...] difficile testing Stool (08/28/2024 9:45 AM CDT) Pathologist [facility] Result Negative Negative Toxin Result Negative [...] ORDERABLES Final Result [facility] TOTH (JEFE) [facility] [place] [address] * Stool culture Stool Rectum (08/28/2024 9:45 AM CDT) Direct Specimen Exam Shiga Toxin Testing: Antigen detection assay for Shiga-toxin NEGATIVE for Shiga Toxin 1 and Shiga Toxin 2. Comment:Testing performed by : [facility], [address] [place]., [address] Report Final Report: No growth of enteric bacterial pathogens RAMIRO TOTH (JEFE) Comment:Testing performed by : [facility], [address] [place]., [address] Stool (Rectum) 08/28/2024 9: 45 AM CDT 08/28/2024 4:38 PM CDT Narrative [facility] TOTH (JEFE) - 09/01/2024 9:30 AM CDT Received in transport media. Testing performed by [facility] ([phone]). Routine stool cultures include procedures to detect Salmonella, Shigella, Edwardsiella, Aeromonas, Pleisiomonas, Campylobacter, Yersinia, E. coli O157, and Shiga-like toxins. Vibrio is cultured only upon special request. If Vibrio is suspected, please call the laboratory at [phone]. Interpretive data was last updated September 20, 2016. Lorin Barrientos MD LAB MICROBIOLOGY - GEN ERAL ORDERABLES Final Result [facility]IRO NAVNEET (JEFE) 1 [facility] [place] [address] * eGFR (08/20/2024 11:01 AM CDT) eGFR [...] 1 AM CDT 08/20/2024 11:14 AM CDT Lorin Barrientos MD LAB BLOOD ORDERABLES F inal Result [facility] [address] [facility] Department [place] [address] * (ABNORMAL) Differential, auto (08/20/2024 11:01 AM CDT) Neutrophil abs 5.36 1.50 - 6.50 K/cumm Comment:Testing performed by : [place] [address] [place] [address] Imm gran abs 0.04 0.00 - 0.10 K/cumm [facility] Comment:Testing performed by : [address] [place] [address] Lymphocyte abs 3.02 0.80 - 3.30 K/cumm [facility] Comment:Testing performed by : [place] [address] [place] [address] Monocyte abs 0.43 0.20 - 0.80 K/cumm [facility] Comment:Testing performed by : [place] [address] [place] [address] Eosinophil abs 0.25 0.00 - 0.50 K/cumm [facility] Comment:Testing performed by : [place] [address] [place] [address] Basophil abs 0.11(H) 0.00 - 0.10 K/cumm [facility] Comment:Testing performed by : [facility],[address], [place] [address] Neutrophil pct 58.2 % [facility] Comment: Interpretive Data Percent cell count reference ranges are not reported, since discordance with absolute values may lead to misinterpretation of CBC data. Current Interpretive Data was last revised on 2017. Testing performed by: [facility],[address], [place] [address] Imm gran pct 0.4 % [facility] Comment: Interpretive Data Percent cell count reference ranges are not reported, since discordance with absolute values may lead to misinterpretation of CBC data. Current Interpretive Data was last revised on 2017. Testing performed by: [facility],[address], [place] [address] Lymphocyte pct 32.8 % [facility] Comment: Interpretive Data Percent cell count reference ranges are not reported, since discordance with absolute values may lead to misinterpretation of CBC data. Current Interpretive Data was last revised on 2017. Testing performed by: [facility],[address], [place] [address] Monocyte pct 4.7 % [facility] Comment: Interpretive Data Percent cell count reference ranges are not reported, since discordance with absolute values may lead to misinterpretation of CBC data. Current Interpretive Data was last revised on 2017. Testing performed by: [facility] [address], [facility] [address] Eosinophil pct 2.7 % [facility] Comment: Interpretive Data Percent cell count reference ranges are not reported, since discordance with absolute values may lead to misinterpretation of CBC data. Current Interpretive Data was last revised on 2017. Testing performed by: [facility],[address], [place] [address] Basophil pct 1.2 % [facility] Comment: Interpretive Data Percent cell count reference ranges are not reported, since discordance with absolute values may lead to misinterpretation of CBC data. Current Interpretive Data was last revised on 2017. Testing performed by: [facility],[address], [place] [address] Blood 08/20/2024 11:0 1 AM CDT 08/20/2024 11:12 AM CDT Lorin Barrientos MD LAB BLOOD ORDERABLES F inal Result [facility] [address] [facility] Department [place] [address] * (ABNORMAL) CBC with auto differential (08/20/2024 11:01 AM CDT) WBC 9.21 3.80 - 9.90 K/cumm Comment:Testing performed by : [place] [address] Hgb 13.5 11.9 - 15.5 g/dL [facility] Comment:Testing performed by : [place] [address] Hct 40.1 35.6 - 45.5 % [facility] Comment:Testing performed by : [place] [address] [place] [address] Plt 210 150 - 400 K/cumm [facility] Comment:Testing performed by : [place] [address] MPV 8.6(L) 9.1 - 12.3 fL [facility] Comment:Testing performed by : [address] [address] RBC 4.42 3.90 - 5.20 M/cumm [facility] Comment:Testing performed by : [place] [address] MCV 90.7 81.3 - 96.4 fL [facility] Comment:Testing performed by : [place] [address] [place] [address] MCH 30.5 27.1 - 33.3 pg [facility] Comment:Testing performed by : [place] [address] [place] [address] MCHC 33.7 32.3 - 35.7 g/dL [facility] Comment:Testing performed by : [facility],[address], [place] [address] RDW CV 14.7 11.1 - 14.9 % [facility] Comment:Testing performed by : [facility],[address], [place] [address] RDW SD 48.9(H) 35.7 - 48.1 fL [facility] Comment:Testing performed by : [facility],[address], [place] [address] NRBC abs 0.00 0.00 - 0.01 K/cumm [facility] Comment:Testing performed by : [facility] [address], [place] [address] ANC Prelim 5.36 1.50 - 6.50 K/cumm [facility] Comment: Interpretive Data The rapid ANC is a preliminary automated count and may vary from the final ANC (Neut Abs) reported in the WBC differential that follows. Current interpretive data was last revised 2024. Testing performed by: [facility] En[address] [facility], [place] [address] Blood 08/20/2024 11:0 1 AM CDT 08/20/2024 11:12 AM CDT Lorin Barrientos MD LAB BLOOD ORDERABLES F inal Result [facility] [address] [facility] [place] [address] * (ABNORMAL) CEA (08/20/2024 11:01 AM CDT) CEA 8.9(H) <=5.0 ng/mL Comment: Interpretive Data Reference Range: Non-Smokers: < or = 3.0 ng/mL Some Smokers may have elevated levels, usually < 5.0 ng/mL The Genoveva CEA assay procedure was used. Results from different manufacturers or methods may not be comparable. Serial testing should be performed using the same method. Testing performed by: [facility], [address] [place] [address], [place]., [address] Blood 08/20/2024 11:0 1 AM CDT 08/20/2024 4:37 PM CDT Lorin Barrientos MD LAB BLOOD ORDERABLES F inal Result [facility] [address] [facility] [place] [address] * Comprehensive metabolic panel (08/20/2024 11:01 AM CDT) Sodium 136 135 - 145 mmol/L Potassium, pl 3.9 3.3 - 4.9 mmol/L [facility] Chloride 102 97 - 110 mmol/L [facility] CO2 24 22 - 32 mmol/L [facility] Anion gap 10 2 - 15 mmol/L [facility] BUN 10 6 - 25 mg/dL [facility] Creatinine 0.81 0.60 - 1.10 mg/dL [facility] Glucose 113 70 - 199 mg/dL [facility] Comment: Interpretive Data Fasting glucose >/= 126 [...] ORDERABLES E dited Result - Final [facility] [address] [facility] [place] [address] * Colonoscopy (11/11/2023 11:47 AM CDT) Anatomical Region Laterality Modality Other Narrative Procedure Note Jayson Watters MD - 11/11/2023 11:47 AM CDT ENDOSCOPY LAB Patient Name: Marissa Salcedo Procedure Date: 11/11/2023 11:47 AM Date of : 1970 Admit Type: Outpatient Age: 53 Gender: Female Attending MD: Jayson Watters M.D. Room: [facility] ENDOSCOPY ROOM 05 Note Status: Finalized [...] The scope was passed under direct vision.The [id number] was introduced through the anusand advanced to the ileocolonic anastomosis. The colonoscopy was performed without difficulty. The patient tolerated the procedure well. The qualityof the bowel preparation was evaluated using the BBPS (Widen Bowel Preparation Scale) with scores of:Right Colon [...] following this procedure please call my officeat [phone] to speak to my nurses. After hours and evenings please call [phone] andspeak to the GI fellow international specialist. Please tell them that Dr. Watters did your procedure and that your wereinstructed to have the fellow call me or the physiciancovering for me to discuss the management of your condition.If you have an urgent problem, [facility] and have the ER doctor call juan r during the day or the GI Fellow after hours and weekends to arrange admission or transfer to our facility. - Call my nurse Teagan Schultz RN in the GI office at [phone] for your final pathology results in 7 days. Attending Participation: I personally performed the entire procedure. Electronically Signed By: Jayson Watters M.D. Jayson Watters M.D. 11/11/2023 12:10:22 PM Number of Addenda: 0 Note Initiated On: 11/11/2023 11:47 AM us Jayson Watters MD ENDOSCOPY PROCEDURES Final Result * POCT hemoglobin A1c (02/03/2023 12:49 PM CDT) Hgb A1C, POC 5.3 4.0 - 5.6 % [facility] Est Average Gluc POC 105 mg/dL [facility] Comment: The ADA recommends reporting an estimated Average Glucose (eAG) with all Hemoglobin A1c results using the equation derived from a study of 507 normal and diabetic adults. Minority populations were underrepresented and children were not included. (Diabetes Care 31:8309-9118, 2007). The eAG is not equivalent to a fasting glucose. Blood 02/03/2023 12:4 9 PM CDT 02/03/2023 12:49 PM CDT us Notinfile Unknown POINT OF CARE TEST ORDERABLES Final Result [facility] Department [place] [address] * ThinPrep Imaging Pap Reflex HPV mRNA [...] has been evaluated with computer assisted technology. [employer] [facility] [place] Comment: LMT, CT(ASCP) CT screening location: [place] [address] [place] [address] Review signal operator technical [facility] [place] Comment:Result canceled by t ritika ancillary Pathologist [facility] Comment:Result canceled by tania yost ancillary 02/18/2017 9:52 AM CDT 02/21/2017 9:57 AM CDT Narrative Resulting Agency Comment Performing Organization Information: Site ID: Name: [facility] Address: [address] [address] Director: Tanvir Guerra MD Huma Haile MD LAB PATHOLOGY ORDER LOBO Final Result [facility] [place] from Last 3 Months or Most Recently Relevant to Health Maintenance Insurance [employer] [place] [facility] Advance Directives For more information, please contact: [phone] * Full Code (Latest Code Status on File) Date Activated Date Inactivated Comments 11/11/2023 10:33 AM 11/11/2023 4:52 PM * Full Code Date Activated Date Inactivated Comments 02/10/2023 3:29 PM 02/11/2023 3:49 PM * Full Code Date Activated Date Inactivated Comments 04/16/2022 2:30 PM 04/19/2022 11:02 PM Care Teams Senior Microstrategy Developer Relationship Specialty Start Date End Date Booker Brown MD PCP - General 09/10/15 Leah Tijerina MD [address] [facility] [phone] [place] [address] Surgeon Colon and Rectal Surgery 04/19/22 Lorin Barrientos MD [address] [place] [address] Medical Oncologist Medical Oncology 05/12/22
--- OUTSIDE RECORDS SUMMARY | 2024-10-18 13:59 | XMS_ITS | Referral Summary ---
Author Organization [facility] [address] Address [address] [employer] [place] [address] Phone Care Team Providers Care Laster Hand Name Role Phone Booker Brown MD Primary Care Provider [phone] Leah Tijerina MD Unavailable Lorin Barrientos MD Unavailable [phone] Encounters Date Type Department Care Team Description 10/09/2024 9:40 AM CDT Office Visit [facility]) - [facility] Urology [address] 11th [place] [address] [place] [address] Serene Douglass MD Renal mass 09/17/2024 12:40 PM CDT - 09/17/2024 11:59 PM CDT Hospital Encounter [facility] [address] [place] [address] Malignant neoplasm of hepatic flexure (HCC); Abnormal screening mammogram Discharge Disposition: Discharge to home or self care 09/17/2024 11:51 AM CDT - 09/17/2024 11:59 PM CDT Hospital Encounter [facility] Imaging [address] [place] [address] , [facility] [place] [facility] Malignant neoplasm of hepatic flexure (HCC); Abnormal screening mammogram Discharge Disposition: Discharge to home or self care 09/14/2024 Telephone [facility] Surgery [address] [place] [address] Teagan Bailey 09/07/2024 Orders Only [facility] Oncology [address] [place] [address] Kendrick Ashraf 08/31/2024 1:48 PM CDT - 08/31/2024 11:59 PM CDT Hospital Encounter [facility] [address] [place] [address] Malignant neoplasm of hepatic flexure (HCC) Discharge Disposition: Discharge to home or self care 08/28/2024 12:26 PM CDT - 08/28/2024 11:59 PM CDT Hospital Encounter [address] [address] Malignant neoplasm of hepatic flexure (HCC) Discharge Disposition: Discharge to home or self care 08/20/2024 10:44 AM CDT - 08/20/2024 11:59 PM CDT Hospital Encounter [facility] [address] [place] [address] Malignant neoplasm of hepatic flexure (HCC) Discharge Disposition: Discharge to home or self care 08/20/2024 10:45 AM CDT Clinical Support [facility] at [facility] [address] [place] [address] Malignant neoplasm of hepatic flexure (HCC) 08/20/2024 11:30 AM CDT Office Visit [facility] Oncology [address] [place] [address] Lorin Barrientos MD Malignant neoplasm of hepatic flexure (HCC) (Primary Dx) from Last 3 Months Allergies Active Allergy Reactions Criticality Noted Date Comments Chlorhexidin-Isopropyl Alcohol Rash,Redness Medium 01/2023 Penicillins Rash,Angioedema High 01/20/2023 Medications DULoxetine (CYMBALTA) 30 mg capsule take 1 capsule [...] (03/30/2022): Added automatically from request for surgery [id number] Assessment & Plan (02/11/2023 9:07 AM CDT): Follows with Dr. Barrientos of medical oncology. 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 Gender Identity Not on file Sexual [...] on file Medical Devices Implanted Type Area Food And Beverage Analyst Device Identifier Shelf Expiration Date Model / Serial / Lot [employer] Powerport Clearvue Airguard 6fr 1 Lumen Lightweight Latex Free [id number] - [id number] Implanted:Qty: 1 on 06/21/2022 at [facility] [employer] 08/14/2023 [id number] / / [id number] Procedures Procedure Name Priority Date/Time Associated Diagnosis [...] testing Stool (08/28/2024 9:45 AM CDT) Pathologist [facility] Result Negative Negative Toxin Result Negative Negative [facility] (JEFE) C. diff result Negative, free toxin Negative, free toxin [facility] (JEFE) C. diff interp Negative for toxigenic Clostridioides (Clostridium) difficile. Analysis was performed using a glutamate dehydrogenase antigen detection assay combined with a C. difficile toxin detection assay. [facility] (JEFE) Stool 08/28/2024 9:45 AM CDT 08/28/2024 12:33 PM CDT Lorin Barrientos MD LAB MICROBIOLOGY - GEN ERAL ORDERABLES Final Result Performing Organization Address [facility]/ZIP Co de Phone Number [facility]IRO TOTH (JEFE) 1 [facility] Department [place] [address] * Stool culture Stool Rectum (08/28/2024 9:45 AM CDT) Direct Specimen Exam Shiga Toxin Testing: Antigen detection assay for Shiga-toxin NEGATIVE for Shiga Toxin 1 and Shiga Toxin 2. Comment:Testing performed by : [facility], [address] [place]., [address] Report Final Report: No growth of enteric bacterial pathogens [facility] (JEFE) Comment:Testing performed by : [facility], [address] [place]., [address] Stool (Rectum) 08/28/2024 9: 45 AM CDT 08/28/2024 4:38 PM CDT Narrative [facility] (JEFE) - 09/01/2024 9:30 AM CDT Received in transport media. Testing performed by [facility] Microbiology Laboratory ([phone]). Routine stool cultures include procedures to detect Salmonella, Shigella, Edwardsiella, Aeromonas, Pleisiomonas, Campylobacter, Yersinia, E. coli O157, and Shiga-like toxins. Vibrio is cultured only upon special request. If Vibrio is suspected, please call the laboratory at [phone]. Interpretive data was last updated September 20, 2016. Lorin Barrientos MD LAB MICROBIOLOGY - GEN ERAL ORDERABLES Final Result [facility] (JEFE) 1 [facility] Department [place] [address] * eGFR (08/20/2024 11:01 AM CDT) eGFR [...] MD LAB BLOOD ORDERABLES F inal Result [address] Department [place] [address] * (ABNORMAL) Differential, auto (08/20/2024 11:01 AM CDT) Neutrophil abs 5.36 1.50 - 6.50 K/cumm Comment:Testing performed by : [place] [address] [place] [address] Imm gran abs 0.04 0.00 - 0.10 K/cumm [facility] Comment:Testing performed by : [place] [address] [place] [address] Lymphocyte abs 3.02 0.80 - 3.30 K/cumm [facility] Comment:Testing performed by : [place] [address] Monocyte abs 0.43 0.20 - 0.80 K/cumm [facility] Comment:Testing performed by : [place] [address] [place] [address] Eosinophil abs 0.25 0.00 - 0.50 K/cumm [facility] Comment:Testing performed by : [address] [place] [address] Basophil abs 0.11(H) 0.00 - 0.10 K/cumm [facility] Comment:Testing performed by : [facility],[address] [place] [address] Way, [place] [address] Neutrophil pct 58.2 % [facility] Comment: Interpretive Data Percent cell count reference ranges are not reported, since discordance with absolute values may lead to misinterpretation of CBC data. Current Interpretive Data was last revised on 2017. Testing performed by: [facility],[address] [place] [address] Way, [place] [address] Imm gran pct 0.4 % [facility] Comment: Interpretive Data Percent cell count reference ranges are not reported, since discordance with absolute values may lead to misinterpretation of CBC data. Current Interpretive Data was last revised on 2017. Testing performed by: [facility],[address] [place] [address] Lymphocyte pct 32.8 % [facility] Comment: Interpretive Data Percent cell count reference ranges are not reported, since discordance with absolute values may lead to misinterpretation of CBC data. Current Interpretive Data was last revised on 2017. Testing performed by: [facility],[address] [place] [address], [place] [address] Monocyte pct 4.7 % [facility] Comment: Interpretive Data Percent cell count reference ranges are not reported, since discordance with absolute values may lead to misinterpretation of CBC data. Current Interpretive Data was last revised on 2017. Testing performed by: [facility],[address] [place] [address], [place] [address] Eosinophil pct 2.7 % [facility] Comment: Interpretive Data Percent cell count reference ranges are not reported, since discordance with absolute values may lead to misinterpretation of CBC data. Current Interpretive Data was last revised on 2017. Testing performed by: [facility] [address], [place] [address] Basophil pct 1.2 % [facility] Comment: Interpretive Data Percent cell count reference ranges are not reported, since discordance with absolute values may lead to misinterpretation of CBC data. Current Interpretive Data was last revised on 2017. Testing performed by: [address] [address] Blood 08/20/2024 11:0 1 AM CDT 08/20/2024 11:12 AM CDT Lorin Barrientos MD LAB BLOOD ORDERABLES F inal Result [facility] [address] [facility] Department [place] [address] * (ABNORMAL) CBC with auto differential (08/20/2024 11:01 AM CDT) WBC 9.21 3.80 - 9.90 K/cumm Comment:Testing performed by : [place] [address] Hgb 13.5 11.9 - 15.5 g/dL [facility] Comment:Testing performed by : [place] [address] Hct 40.1 35.6 - 45.5 % [facility] Comment:Testing performed by : [place] [address] Plt 210 150 - 400 K/cumm [facility] Comment:Testing performed by : [address] [address] MPV 8.6(L) 9.1 - 12.3 fL [facility] Comment:Testing performed by : [address] [address] RBC 4.42 3.90 - 5.20 M/cumm [facility] Comment:Testing performed by : [place] [address] MCV 90.7 81.3 - 96.4 fL [facility] Comment:Testing performed by : [place] [address] [place] [address] MCH 30.5 27.1 - 33.3 pg [facility] Comment:Testing performed by : [place] [address] [place] [address] MCHC 33.7 32.3 - 35.7 g/dL [facility] Comment:Testing performed by : [facility],[address] [place] [address] RDW CV 14.7 11.1 - 14.9 % [facility] Comment:Testing performed by : [facility],[address] [place] [address] RDW SD 48.9(H) 35.7 - 48.1 fL [facility] Comment:Testing performed by : [facility],[address] [place] [address] NRBC abs 0.00 0.00 - 0.01 K/cumm [facility] Comment:Testing performed by : [facility],[address] [place] [address] ANC Prelim 5.36 1.50 - 6.50 K/cumm [facility] Comment: Interpretive Data The rapid ANC is a preliminary automated count and may vary from the final ANC (Neut Abs) reported in the WBC differential that follows. Current interpretive data was last revised 2024. Testing performed by: [facility],[address] [place] [address] Blood 08/20/2024 11:0 1 AM CDT 08/20/2024 11:12 AM CDT Lorin Barrientos MD LAB BLOOD ORDERABLES F inal Result [facility] [address] [facility] Department [place] [address] * (ABNORMAL) CEA (08/20/2024 11:01 AM CDT) CEA 8.9(H) <=5.0 ng/mL Comment: Interpretive Data Reference Range: Non-Smokers: < or = 3.0 ng/mL Some Smokers may have elevated levels, usually < 5.0 ng/mL The Genoveva CEA assay procedure was used. Results from different manufacturers or methods may not be comparable. Serial testing should be performed using the same method. Testing performed by: [facility], [facility], [place]., [address] Blood 08/20/2024 11:0 1 AM CDT 08/20/2024 4:37 PM CDT Lorin Barrientos MD LAB BLOOD ORDERABLES F inal Result [address] Department [place] [address] * Comprehensive metabolic panel (08/20/2024 11:01 AM CDT) Sodium 136 135 - 145 mmol/L Potassium, pl 3.9 3.3 - 4.9 mmol/L [facility] Chloride 102 97 - 110 mmol/L [facility] CO2 24 22 - 32 mmol/L [facility] Anion gap 10 2 - 15 mmol/L [facility] BUN 10 6 - 25 mg/dL [facility] Creatinine 0.81 0.60 - 1.10 mg/dL [facility] Glucose 113 70 - 199 mg/dL [facility] Comment: Interpretive Data Fasting glucose >/= 126 [...] total 0.2 0.1 - 1.2 mg/dL [facility] Protein, pl 6.6 6.5 - 8.5 g/dL [facility] Albumin 4.2 3.5 - 5.0 g/dL [facility] Alk phos 56 40 - 130 Units/L [facility] ALT 18 7 - 45 Units/L [facility] AST 19 10 - 45 Units/L [facility] Blood 08/20/2024 11:0 1 AM CDT 08/20/2024 11:14 AM CDT Lorin Barrientos MD LAB BLOOD ORDERABLES E dited Result - Final [facility] [address] [facility] [place] [address] * Colonoscopy (11/11/2023 11:47 AM CDT) Anatomical Region Laterality Modality Other Narrative Procedure Note Jayson Watters MD - 11/11/2023 11:47 AM CDT ENDOSCOPY LAB Patient Name: Marissa Salcedo Procedure Date: 11/11/2023 11:47 AM Date of : 1970 Admit Type: Outpatient Age: 53 Gender: Female Attending MD: Jayson Watters M.D. Room: [facility] ENDOSCOPY ROOM 05 Note Status: Finalized [...] The scope was passed under direct vision.The [id number] was introduced through the anusand advanced to the ileocolonic anastomosis. The colonoscopy was performed without difficulty. The patient tolerated the procedure well. The qualityof the bowel preparation was evaluated using the BBPS ([place] Bowel Preparation Scale) with scores of:Right Colon [...] following this procedure please call my officeat [phone] to speak to my nurses. After hours and evenings please call [phone] andspeak to the GI fellow motion designer. Please tell them that Dr. Watters did your procedure and that your wereinstructed to have the fellow call me or the physiciancovering for me to discuss the management of your condition.If you have an urgent problem, [facility] and have the ER doctor call giulianoffice during the day or the GI Fellow after hours and weekends to arrange admission or transfer to our facility. - Call my nurse Teagan Schultz RN in the GI office at [phone] for your final pathology results in 7 days. Attending Participation: I personally performed the entire procedure. Electronically Signed By: Jayson Watters M.D. Jayson Watters M.D. 11/11/2023 12:10:22 PM Number of Addenda: 0 Note Initiated On: 11/11/2023 11:47 AM us Jayson Watters MD ENDOSCOPY PROCEDURES Final Result * POCT hemoglobin A1c (02/03/2023 12:49 PM CDT) Hgb A1C, POC 5.3 4.0 - 5.6 % [facility] Est Average Gluc POC 105 mg/dL [facility] Comment: The ADA recommends reporting an estimated Average Glucose (eAG) with all Hemoglobin A1c results using the equation derived from a study of 507 normal and diabetic adults. Minority populations were underrepresented and children were not included. (Diabetes Care 31:9239-8417, 2008). The eAG is not equivalent to a fasting glucose. Blood 02/03/2023 12:4 9 PM CDT 02/03/2023 12:49 PM CDT us Notinfile Unknown POINT OF CARE TEST ORDERABLES Final Result [facility] [place] [address] * ThinPrep Imaging Pap Reflex HPV mRNA E6/E7 (02/18/2017 9:52 AM CDT) Pathologist [facility] Report status [facility] [...] has been evaluated with computer assisted technology. Auto Engine Mechanic [facility] - [place] Comment: LMT, CT(ASCP) CT screening location: [place] [address] [place] [address] Review research development manager [facility] Comment:Result canceled by t ritika ancillary Pathologist [facility] Comment:Result canceled by tania yost ancillary 02/18/2017 9:52 AM CDT 02/21/2017 9:57 AM CDT Narrative Resulting Agency Comment Performing Organization Information: Site ID: [place] Name: [facility]ja V[facility] Address: [address] [address] Director: Tanvir Guerra MD Huma Haile MD LAB PATHOLOGY ORDER LOBO Final Result [facility] Londono [facility] from Last 3 Months or Most Recently Relevant to Health Maintenance Insurance [employer] [place] [facility] Advance Directives For more information, please contact: [phone] * Full Code (Latest Code Status on File) Date Activated Date Inactivated Comments 11/11/2023 10:33 AM 11/11/2023 4:52 PM * Full Code Date Activated Date Inactivated Comments 02/10/2023 3:29 PM 02/11/2023 3:49 PM * Full Code Date Activated Date Inactivated Comments 04/16/2022 2:30 PM 04/19/2022 11:02 PM Care Teams Laster Hand Relationship Specialty Start Date End Date Booker Brown MD PCP - General 09/10/15 Leah Tijerina MD [address] [facility] [phone] [place] [address] Surgeon Colon and Rectal Surgery 04/19/22 Lorin Barrientos MD [address] [place] [address] Medical Oncologist Medical Oncology 05/12/22
--- OUTSIDE RECORDS SUMMARY | 2024-10-18 13:59 | XMS_ITS | Encounter Summary ---
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
--- OUTSIDE RECORDS SUMMARY | 2024-10-18 13:59 | XMS_ITS | Continuity of Care Document ---
Author Organization [facility] [employer] Address [address] [place] [address] Phone Care Team Providers Care Cutting Machine Tender Helper Name Role Phone Libia BELTRAN, Faviola Unavailable [...] Copied on Encounter OFFICE/OUTPAT IENT VISIT, EST [facility] [employer], [address], [place], [id number], [place] tel:[phone] [facility] Follow Up of Abnormal pap smear (chief complaint) ASCUS of cervix with negative high risk HPVBody mass index [BMI] 34.0-34.9, adult Sep- 3 Sarafzapatrizia Ottin. [address] [place] [address], [id number] [place] [address], [id number], [place]. tel:[phone] OFFICE/OUTPAT IENT VISIT, EST [facility] [employer], [address], [place], [id number], [place] tel:[phone] [facility] Follow Up of Abnormal pap smear (chief complaint) ASCUS of cervix with negative high risk HPVBody mass index [BMI] 35.0-35.9, adult Sep-0 3 Sarafzadeh Faviola. [address] [place] [address], [id number] [place], [id number], [place]. tel:[phone] [facility] [employer], [address], [place], [id number], [place] tel:[phone] [facility] Follow Up of Abnormal pap smear (chief complaint) No Information 3 Sarafzadeh Faviola. [address] [place] [address], [id number] [place], [id number], [place]. tel:[phone] OFFICE/OUTPAT IENT VISIT, [facility] [employer], [address], [place], [place], [id number], tel:[phone] [facility] Follow Up of Abnormal pap smear (chief complaint) ASCUS of cervix with negative high risk HPV 3 Libia Salmeron. [address] [place] [address], [id number] [place], [id number], [place]. tel:[phone] OFFICE/OUTPAT IENT VISIT, [facility] [employer], [address], [place], [id number], tel:[phone] [facility] annual exam (chief complaint) Encounter for gynecological examination (general) (routine) without abnormal findingsBody mass index [BMI] 36.0-36.9, adult 3 Libia Salmeron. [address] [place] [address], [id number] [place], [id number], . tel:[phone] Family History Family Member Type Diagnosis Age At Onset No Information Payers Payer name Insurance type Covered republican ID Conner simskunal(s) [facility] [id number] [facility] Code 18 [id number] Social History Type Description Quantity Date Captured [...] Mental Status Date Cognitive Assessment Orientation - [place] ed to time, place, person, situation.
--- OUTSIDE RECORDS SUMMARY | 2024-10-18 13:59 | XMS_ITS ---
Author Organization [facility] [address] Address [address] [employer] [place] [address] Phone Care Team Providers Care Salvager Helper Name Role Phone Booker Brown MD Primary Care Provider Leah Tijerina MD Unavailable [phone] Lorin Barrientos MD Unavailable Active Problems Problem [...] (03/30/2022): Added automatically from request for surgery [id number] Assessment & Plan (02/11/2023 9:07 AM CDT): Follows with Dr. Barrientos of medical oncology. 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 She is now s/p [...] from the original note were not included. [address] [address] This Survivorship Care Plan is a cancer [...] Information: Primary Care Physician Booker Brown MD [phone] Surgeon Leah Tijerina MD Radiation Oncologist No care steam tender to display Medical Oncologist Lorin Barrientos MD Water Supply Technician No care steam tender to display Other Providers Treatment Summary Cancer [...] Medical oncology and Surgeon if both are [facility] Phys[facility]) History and Physical every 3 months [...] Help learning to eat healthier, call the woodyard operator at: [facility] . Have an active lifestyle, [...] Resources you may be interested in: [facility] [place] [facility] [place] [facility] http://www.[facility]/ [facility] Information Center 1st floor of [facility] [phone]. Computer access, educational material, counseling services (FREE) United Ost[employer] Association: the place for ostomy resources, advocacy, and support. www.ostomy.org The ostomy nurse at [facility] can be reached at [phone] Online Resources: www.cancer.net; http://www.cdc.gov/cancer/survivorship; http://www.cancercare.org/tagged/post-treatment_survivorship; http://www.cancer.gov/about-cancer/coping/survivorship [employer]: https://survivorship.cancer.gov/ an online tool for cancer survivors andcaregivers created by the [place] [employer] and the National Cancer [place]. It provides: Information on dealing with side [...] (04/07/2022): Added automatically from request for surgery [id number]
--- OUTSIDE RECORDS SUMMARY | 2024-10-18 13:59 | XMS_ITS | Encounter Summary ---
Author Organization [facility] Address [address] [place] [address] Phone Care Team Providers Care Woven Blind Loom Tender Name Role Phone Booker Brown MD Primary Care Provider + [phone] Leah Tijerina MD Unavailable [phone] Lorin Barrientos MD Unavailable + [phone] Encounter Details Date Type Department Care Team (Late st Contact Info) Description 2023 Orders Only [facility] [address] [facility] Advanced Medicine [address]th [place] [address] [place] [address] Charlotte Oh RN Social History [...] on file 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
--- OUTSIDE RECORDS SUMMARY | 2024-10-18 14:01 | XMS_ITS | Continuity of Care Document ---
Author Organization [facility] Address [address] [place] [address] Phone Care Team Providers Care Carding Supervisor Name Role Phone Libia BELTRAN, Faviola Unavailable [...] Copied on Encounter OFFICE/OUTPAT IENT VISIT, EST [facility], [address] [address], [place], [id number], [place] tel:[phone] [facility] Follow Up of Abnormal pap smear (chief complaint) ASCUS of cervix with negative high risk HPVBody mass index [BMI] 34.0-34.9, adult Sep- 3 Sarafzapatrizia Ottin. [address] [place] [address], [id number] [address] [place] [address], [id number], [place]. tel:[phone] OFFICE/OUTPAT IENT VISIT, EST [facility], [address], [place], [id number], [place] tel:[phone] [facility] Follow Up of Abnormal pap smear (chief complaint) ASCUS of cervix with negative high risk HPVBody mass index [BMI] 35.0-35.9, adult Sep-0 3 Sarafzadeh Faviola. [address] [place] [address], [id number] [place], [id number], [place]. tel:[phone] [facility], [address], [place], [id number], [place] tel:[phone] [facility] Follow Up of Abnormal pap smear (chief complaint) No Information 3 Sarafzadeh Faviola. [address] [place] [address], [id number] [address], [id number], [place]. tel:[phone] OFFICE/OUTPAT IENT VISIT, [facility], [address], [place], [place], [id number], tel:[phone] [facility] Follow Up of Abnormal pap smear (chief complaint) ASCUS of cervix with negative high risk HPV 3 Libia Salmeron. [address] [place] [address], [id number] [place], [id number], [place]. tel:[phone] OFFICE/OUTPAT IENT VISIT, [facility] [employer] [facility], [address], [place], [id number], tel:[phone] [facility] annual exam (chief complaint) Encounter for gynecological examination (general) (routine) without abnormal findingsBody mass index [BMI] 36.0-36.9, adult 3 Libia Salmeron. [address] [place] [address], [id number] [place], [id number], . tel:[phone] Family History Family Member Type Diagnosis Age At Onset No Information Payers Payer name Insurance type Covered democrat ID Conner simskunal(s) [facility] [id number] [facility] Code 18 [id number] Social History Type Description Quantity Date Captured [...] Mental Status Date Cognitive Assessment Orientation - Haugan ed to time, place, person, situation.
== END 2024-10-18 13:48 | disposition home or self-care (01) ==
PROVIDERS: PCP Family Medicine
DX: H60.11 Cellulitis of right external ear (principal); H60.501 Unspecified acute noninfective otitis externa, right ear; F17.210 Nicotine dependence, cigarettes, uncomplicated; J44.9 Chronic obstructive pulmonary disease, unspecified; I10 Essential (primary) hypertension; E78.5 Hyperlipidemia, unspecified; E11.9 Type 2 diabetes mellitus without complications; Z79.84 Long term (current) use of oral hypoglycemic drugs; K21.00 Gastro-esophageal reflux disease with esophagitis, without bleeding; F41.9 Anxiety disorder, unspecified; F32.9 Major depressive disorder, single episode, unspecified
CPT/HCPCS: 99213; G0463

== ENCOUNTER 2025-04-23 08:55 | Emergency (ER) | payer OTHER, SELFPAY ==
[2025-04-23 09:00] VITALS: BP 124/77; PULSE 102; RESP 20; TEMP 36.4; O2SAT 99
--- NOTE | 2025-04-23 09:03 | ED.URI ---
HPI - URI/Sore Throat General Chief Complaint: Upper Respiratory Infection Stated Complaint: Head and chest congestion Time Seen by Provider: 04/23/25 09:08 Source: patient and RN notes reviewed Mode of arrival: ambulatory Limitations: no limitations History of Present Illness HPI Narrative: 54-year-old female with history of COPD and diabetes presents with concern for 4 day history of cough, chest congestion, sinus congestion, fatigue, general malaise. She has been using her albuterol inhaler, she last used last night. She has not needed her nebulizer yet. MD elicited complaint: cough and nasal congestion Related Data Allergies Allergy/AdvReac Type Severity Reaction Status Date / Time Penicillins Allergy Severe Swelling Verified 04/23/25 09:07 of Lip/Tongue/Throat tetracycline Allergy Intermediate Rash Verified 04/23/25 09:07 Review of Systems Review of Systems: CONSTITUTIONAL: Reports malaise, fatigue, fever. EYES: Denies visual changes, redness, or discharge. ENT: Reports rhinorrhea, congestion, and sore throat. CARDIOVASCULAR: Denies chest pain, palpitations, or edema. RESPIRATORY: Reports cough. Denies dyspnea. GASTROINTESTINAL: Denies abdominal pain, nausea, vomiting, diarrhea SKIN: Denies rash or itching. MUSCULOSKELETAL: Reports myalgia. NEUROLOGIC: Denies headache. All systems reviewed & are unremarkable except as noted in HPI and below PMFSH Past Medical History Medical History Cough present for greater than 3 weeks COPD exacerbation BMI 33.0-33.9,adult BMI 32.0-32.9,adult Cholecystectomy planned Influenza A Right knee pain Abdominal pain Cholecystitis Insomnia Diarrhea Painful paresthesia Otitis externa Hyperlipidemia Hypertension Flank pain Dental abscess Anxiety disorder, unspecified Major depressive disorder, single episode, unspecified Reflux esophagitis Uncontrolled type 2 diabetes mellitus without complication Surgical History Surgical History History of colon resection History of colonoscopy Family History Family History Grandparent Hypertension Cerebrovascular accident Family history of coronary artery disease Mother Hypertension Family history of coronary artery disease COPD (chronic obstructive pulmonary disease) Heart disease Father Acute myocardial infarction Heart disease Sibling Carcinoma of colon Half brother Sibling No problems noted. Social History Social History Smoking packs per day: 1.5 Smoking cigarettes per day: 30.0 Years smoked: 36 Smoking pack-years: 54.00 Smoking status: Current every day smoker Tobacco type: cigarettes Second hand tobacco smoke exposure: Yes Alcohol intake: never Substance use: never Substance use type: does not use Lack of Transportation: No Lack of Food: Never True Current Housing: I Have Housing Concerned About Future Housing: No Difficulty Paying Gas/Electric Bills: No Difficulty Paying for Meds: No Currently Unemployed: No Education: Grade School Difficulty w/ Childcare or Family Care: No Living arrangements: with family Occupation/Education: occupation 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 There is no relevant family history pertinent to the presenting complaint Exam Narrative: GENERAL: Well-appearing, well-nourished, and in no acute distress. HEAD: Normocephalic EYES: PERRLA, conjunctivae clear ENT: Nares clear, turbinates edematous and erythematous. Mucous membranes moist. TM pearly hernadez with dull light reflex bilaterally; no tragal tenderness. Oropharynx not erythematous without lesions. Tonsils not enlarged and without exudate, no drooling, no hoarseness, no trismus, uvula midline. NECK: Supple. No lymphadenopathy CHEST: Clear to auscultation, breath sounds equal. No wheezing, rhonchi, rales, or stridor. No respiratory distress, speaks in full sentences. Cough noted HEART: Regular rate and rhythm. No murmur heard. SKIN: Warm, dry, no rash. NEURO: Alert and oriented x3. PSYCH: Normal mood and affect Course Course Emergency Course: Patient is aware of diagnosis, understands and agrees to treatment plan. Anticipatory guidance given. Patient agrees to follow-up as directed and is aware of reasons to seek care at the emergency department. Portions of this record may have been created with voice recognition software Level of Care: [facility] Visit MDM Differential Diagnosis Differential Diagnosis: I evaluated this patient in the [facility]. History is obtained from patient who is an independent historian and physical exam was performed.? Available medical records were reviewed. ? Exam findings and relevant testing show no acute concerns or changes; patient is non-toxic appearing and is in no distress. ? Differential diagnosis considered: Ortiz virus, strep pharyngitis, allergic rhinitis, upper respiratory tract infection, sinusitis, rhinosinusitis, nasopharyngitis. viral pharyngitis, otitis media, otitis externa, pneumonia, bronchitis, viral cough syndrome, viral syndrome, and influenza. Differential diagnosis and treatment plan were discussed with the patient. Patient agrees with discussion and after shared medical decision making agrees with plan of care. All questions were answered to the patient's satisfaction. Patient is appropriate for outpatient treatment and follow-up. Discharge Plan Discharge Clinical Impression: Acute exacerbation of chronic obstructive pulmonary disease Patient Disposition: Home Condition: Stable Instructions: Antibiotic Form, COPD (Chronic Obstructive Pulmonary Disease) (ED) Additional Instructions: Take medications as prescribed Recommend antihistamine such as Benadryl at night time and Zyrtec or Pavithra during the day Continue to use your nebulizer or inhaler as needed for cough, wheezing, shortness of breath or chest tightness. Also, recommend symptomatic treatment includes: rest, fluids, and increase humidity of the air at home. Recommend Acetaminophen as directed on the bottle to reduce fever, pain, headache. Avoid smoking/second-hand smoke. Please schedule a follow-up visit with your personal physician for further evaluation and treatment within 3-5days. If your symptoms persist, change or worsen significantly before you can contact your personal physician then please, without delay, go to the emergency department for further evaluation. Patient Language: Azeri Prescriptions: New azithromycin [Zithromax Z-Tiburcio] 250 mg tablet See Rx Instructions .ROUTE .COMPLEX Qty: 6 0RF Rx Instructions: take 500 mg today (day 1), then 250 mg for 4 days (days 2-5) prednisone 20 mg tablet 40 mg PO DAILY 5 Days Qty: 10 0RF No Action fluticasone propionate [Flonase Allergy Relief] 50 mcg/actuation spray,suspension 2 spray intranasal BID Qty: 16 3RF Rx Instructions: administer into each nostril. Aim back/up/out duloxetine [Cymbalta] 30 mg capsule,delayed release(DR/EC) 30 mg PO DAILY Qty: 90 4RF buspirone 10 mg tablet 10 mg PO BID Qty: 180 3RF Breztri Aerosphere 160-9-4.8 mcg/actuation HFA aerosol inhaler 2 inh inhalation BID Qty: 10.7 2RF albuterol sulfate 90 mcg/actuation HFA aerosol inhaler See Rx Instructions .ROUTE .COMPLEX Qty: 6.7 0RF Dose Instruction: INHALE 2 PUFFS BY MOUTH EVERY 4 HOURS NEEDED FOR SHORTNESS OF BREATH OR WHEEZING Rx Instructions: INHALE 2 PUFFS BY MOUTH EVERY 4 HOURS NEEDED FOR SHORTNESS OF BREATH OR WHEEZING benazepril 10 mg tablet See Rx Instructions .ROUTE .COMPLEX Qty: 90 1RF Dose Instruction: TAKE 1 TABLET BY MOUTH DAILY Rx Instructions: TAKE 1 TABLET BY MOUTH DAILY metformin 1,000 mg tablet 1,000 mg PO BID Qty: 180 1RF bupropion HCl 150 mg tablet extended release 24 hr 150 mg PO QAM Qty: 90 1RF rosuvastatin [Crestor] 20 mg tablet 20 mg PO DAILY Qty: 90 3RF trazodone 50 mg tablet 100 mg PO QHS Qty: 180 2RF alprazolam [Xanax] 0.5 mg tablet 0.5 mg PO DAILY PRN (Reason: anxiety) Qty: 60 0RF Follow-up/Referrals: Booker Brown MD [Primary Care Provider, Family Practice] Stand Alone Forms: Work/School Release IP Time of Disposition: 09:22
== END 2025-04-23 09:25 | disposition home or self-care (01) ==
PROVIDERS: Emergency Provider Nurse Practitioner; PCP Family Medicine
DX: J44.1 Chronic obstructive pulmonary disease with (acute) exacerbation (principal); F17.210 Nicotine dependence, cigarettes, uncomplicated; I10 Essential (primary) hypertension; E78.5 Hyperlipidemia, unspecified; E11.9 Type 2 diabetes mellitus without complications; Z79.84 Long term (current) use of oral hypoglycemic drugs; F41.9 Anxiety disorder, unspecified; F32.9 Major depressive disorder, single episode, unspecified; K21.00 Gastro-esophageal reflux disease with esophagitis, without bleeding
CPT/HCPCS: 99213; G0463